=== PATIENT | female | born 1930 | race Caucasian/White ===

== ENCOUNTER 2017-01-05 03:24 | Inpatient (IN) | payer MEDICARE, BC ==
[2017-01-05 04:11] LABS: Add Diff/Slide Review? Slide Review Added; Comments Flag Yes; Hematocrit 34 % (35-47); Mean Corpuscular HGB Conc 32 g/dl (31-36); Mean Corpuscular Hemoglobin 32 pg (27-31); Mean Corpuscular Volume 98 fL (80-97); Mean Platelet Volume 8 um3 (7.4-10.4); Red Blood Count 3.49 10^6/ul (4.0-5.4); Red Cell Distribution Width 18 % (10.5-15); White Blood Count 19.9 10^3/ul (3.5-10.8)
[2017-01-05 04:23] LABS: Calcium 9.5 mg/dL (8.6-10.3); EGFR African American 9.2 (>60); EGFR Non-African American 7.1 (>60); Globulin 2.3 g/dL (2-4); Total Bilirubin 0.5 mg/dL (0.2-1.0); Total Protein 6.3 g/dL (6.4-8.9)
[2017-01-05 04:27] LABS: Troponin I 3.31 ng/mL (<0.04)
[2017-01-05 04:29] LABS: Potassium 6.1 mmol/L (3.5-5.0)
[2017-01-05] MEDS ORDERED: Dextrose 50% VIAL 50 ml IV ONE (05:02)
[2017-01-05] MEDS ORDERED: Insulin REGULAR(*) 1 UNITS UNIT IV PUSH ONE (05:03)
[2017-01-05] MEDS ORDERED: Dextrose 50% Syringe 50 ML* 25 GM/50 ML SYRINGE ONE (05:11)
[2017-01-05] MEDS ORDERED: Aspirin TAB* 325 MG PO ONE (05:11)
[2017-01-05] MEDS ORDERED: Dextrose 50% Syringe 50 ML* 25 GM/50 ML SYRINGE IV PUSH ONE (05:15)
[2017-01-05] MEDS ORDERED: Sodium Polystyrene ORAL.SOL* 15 GM/60 ML BTL PO ONE (05:22)
[2017-01-05 05:44] LABS: HDL Cholesterol 51.1 mg/dL
[2017-01-05] MEDS ORDERED: Calcium Carbonate CHEW TAB* 500 MG (TUMS) PO PRN (05:53)
[2017-01-05] MEDS: Heparin VIAL(*) 5000 UNITS/ML VIAL (FIVE THOUSAND) IV SCH (05:55)
[2017-01-05] MEDS: Heparin DRIP 25,000 UNITS(*) 25,000 UNITS/500 ML BAG IVPB SCH ×2 (05:56→14:57)
[2017-01-05] MEDS: Acetaminophen TAB* 325 MG PO PRN (06:25)
[2017-01-05] MEDS ORDERED: Clopidogrel TAB* 300 MG PO ONE (06:45)
[2017-01-05] MEDS ORDERED: nitroGLYCERIN DRIP* 250 ML ONE ×2 (06:56→15:16)
[2017-01-05] MEDS: nitroGLYCERIN DRIP* 25,000 MCG in PREMIX* 0 ML IV SCH ×2 (07:15→15:25)
[2017-01-05] MEDS ORDERED: Morphine INJ* 2 MG/ML 1 ML SYRINGE (TWO MG - NEW SYRINGE VERSION) ONE (08:31)
[2017-01-05] MEDS: Morphine INJ* 2 MG/ML 1 ML SYRINGE (TWO MG - NEW SYRINGE VERSION) IV PRN ×6 (08:32→22:12)
[2017-01-05] MEDS ORDERED: hydrALAZINE TAB* 100 MG ** ONE HUNDRED PO SCH (09:00)
[2017-01-05] MEDS ORDERED: amLODIPine TAB* 5 MG PO SCH (09:00)
--- NOTE | 2017-01-05 09:16 | HP ---
CC: Dr. Christa Roberts * HISTORY AND PHYSICAL: DATE OF ADMISSION: 01/05/17 PRIMARY CARE PROVIDER: Dr. Christa Roberts. CHIEF COMPLAINT: Nausea, vomiting, chest pain, disorientation. HISTORY OF PRESENT ILLNESS: Ms. Matias is an 86-year-old female with history of end-stage renal disease (who is on dialysis Sunday, , Sunday), hypertension, hypothyroidism, coronary artery disease, and GERD who presents to the emergency room at [facility] with complaints of weakness, disorientation, nausea and vomiting. The patient ultimately was found to have an elevated troponin and probable CHF, and was sent to [facility] for further management and evaluation. The patient to me states that on the evening of 01/03/17 the patient had one episode of vomiting. The following day, she had four more episodes of vomiting. She denies any recent sick contacts stating that she only goes to dialysis and to yarsanism on Sundays. The patient's vomiting has now stopped, but she does have continued episodes of burping. The patient also complains of being constipated recently. She does state, however, that her bowels will fluctuate between diarrhea and constipation. The patient admits to progressive shortness of breath over the last couple of weeks. She has not had any significant cough or sputum production. She has been having intermittent chest pain over the last 24 hours, rating it a 4- 5/10. She states that it comes and goes. She is unable to describe what the pain feels like. She does state that a couple of weeks ago, she had a severe episode of chest pain that awakened her from sleep, though she did not seek attention at that time. The patient states her biggest complaint at this point is that she feels "weak as a kitten." She did miss her dialysis on 01/04/17 due to being ill. PAST MEDICAL HISTORY: 1. End-stage renal disease, on dialysis. 2. Hypertension. 3. Hyperlipidemia. 4. Coronary artery disease. 5. Hypothyroidism. 6. GERD. 7. Macular degeneration. 8. Celiac disease. PAST SURGICAL HISTORY: 1. Appendectomy. 2. Cholecystectomy. 3. Hysterectomy. 4. Right carotid endarterectomy. 5. Left hip replacement. 6. Ganglion cyst removal from wrist. 7. She is status post cardiac stent, though the patient is unable to give me any details on this. MEDICATIONS: (This list is likely inaccurate as the patient is unaware of her home medications.) This is a list obtained from and [facility] records. 1. Hyoscyamine 0.125 mg sublingual daily. 2. Amlodipine ER 10 mg p.o. daily. 3. Requip 0.25 mg p.o. q.h.s. 4. Hydralazine 100 mg p.o. t.i.d. 5. Lexapro 10 mg p.o. daily. 6. Vitamin D 1000 units p.o. daily. 7. Sodium bicarbonate 650 mg p.o. b.i.d. 8. Multivitamin one tab p.o. daily. 9. Folic acid 1 mg p.o. daily. 10. Metoprolol XL 100 mg p.o. daily. 11. Levothyroxine 88 micrograms p.o. daily. 12. Clonidine 0.3 mg p.o. b.i.d. ALLERGIES: LIPITOR, IODINE, PSYLLIUM, and TRAZODONE. FAMILY HISTORY: Mom at age 90 of a CVA. Dad at age 45 of a CVA. SOCIAL HISTORY: The patient is a former smoker; she quit 10 to 15 years ago. She does not drink alcohol. She is a retired nurse. She is . She has 4 children. She lives with one of her 4 sons. His name is Darrius, and he is her healthcare proxy. REVIEW OF SYSTEMS: The patient states that she feels feverish currently, but otherwise denies any fevers or chills. Her appetite has been very poor, but this has been an ongoing issue. She admits to the intermittent chest pain as above. She noted lower extremity edema, which is a new problem for her. No cough. She does admit to shortness of breath. She admits to nausea, vomiting as above. Diarrhea and constipation as above. No abdominal pain. No hematochezia. She does state that she urinates approximately twice per day. She denies any dysuria or hematuria. No focal weakness or sensory loss. No sudden changes in vision. No dysphagia. She does state that her left leg feels weaker than the right related to her hip replacement on that side. Additionally, she states that the left leg has been painful. She does have a very large bruise to the left anterior lower legs that she states she is unaware of how she got this bruise. She did not fall or hit it on anything. She denies any rashes. She denies any anxiety or depression. PHYSICAL EXAMINATION GENERAL: The patient is a well-developed, elderly female, lying in bed in no acute distress, that she is mildly tachypneic. VITAL SIGNS: Blood pressure 154/66, pulse 85, respirations 22, temp 99.4, O2 sat 95% on 3 L. HEENT: Pupils are equal; has evidence of prior cataract extraction. Extraocular muscles are intact. Oropharynx is clear. Oral mucosa is dry. There is no submandibular, cervical or supraclavicular adenopathy. There is a scar related to right carotid endarterectomy. PULMONARY: Again, the patient appears tachypneic at rest. Her breath sounds reveal crackles about two-thirds of the way up bilaterally. Breath sounds are diminished at the bases. CARDIAC: Normal S1, S2. Regular rate and rhythm. There is a 3/6 systolic murmur heard best at the right upper sternal border. She has trace ankle edema bilaterally. ABDOMEN: Bowel sounds are present. Abdomen is soft, nontender, nondistended. MUSCULOSKELETAL: There is no cyanosis or clubbing of the digits. There is full active range of motion of all 4 extremities. SKIN: Warm and dry. There are no rashes. The patient does have scattered bruising noted to all of the limbs; most notably, there is a large purple bruise to the left lower anterior leg and foot. NEUROLOGIC: Cranial nerves II through XII are grossly intact. Sensation is intact to light touch throughout. Strength is 5/5 and symmetric bilaterally. PSYCH: The patient is alert. She is oriented x3 though is forgetful about certain topics. She is not completely clear on her medications, stating that her son does her medication for her given her history of macular degeneration. LABORATORY DATA: WBC 19.9, hemoglobin 11.0, hematocrit 34, platelets 222, neutrophils 91.9%. Sodium 136, potassium 6.1, chloride 99, CO2 21, BUN 79, creatinine 5.63, glucose 189, lactic acid 1.4, calcium 9.5, bilirubin 0.5, AST 36, ALT 27, alk phos 104, CPK 129, CK-MB 20.6. Troponin was 1.329 at [facility], now up to 3.31. BNP 4520, amylase 181, and INR 1.02. Albumin 4.0, triglyceride 86, cholesterol 139, LDL 71, HDL 51. PTT pending. EKG reveals normal sinus rhythm with ST elevation in the anterior leads, specifically V1 through V4. Portable chest x-ray from [facility] - cardiomegaly, pulmonary vascular congestion, and possible pericardial effusion. CT abdomen and pelvis reveals large bilateral effusions, cardiomegaly, bibasilar opacities representing either atelectases or pneumonia, severe atherosclerosis, atrophic kidneys, severe distal constipation. Troponin was 1.329 at [facility], now up to 3.31. BNP 4520, amylase 181, and INR 1.02. ASSESSMENT AND PLAN: Ms. Matias is an 86-year-old female who has a history of end-stage renal disease, hypertension, coronary artery disease, hyperlipidemia, and hypothyroidism who presented initially to [facility] with complaints of disorientation and weakness as well as nausea and vomiting, and was found to have hyperkalemia, elevated troponin, and ST elevations on her EKG and sent to [facility] for further evaluation and management. 1. Possible anterior ST elevation KY. The patient has been complaining of intermittent chest pain over the last 24 hours. She had a severe episode approximately two weeks ago as well. The patient's EKG is concerning for STEMI. She has an IODINE allergy and, given her comorbidities, at this point the plan is not to take the patient to cardiac catheterization. Dr. Dinh of the emergency room spoke with Dr. Lucas, who agreed the ST elevations were present on the EKG. However, did not want to pursue emergent cardiac catheterization at this time. The patient will be admitted to the intensive care unit and started on a heparin drip. She received 324 mg aspirin at [facility]. She will continue on aspirin 81 mg p.o. daily starting tomorrow. Lipid profile has been obtained and is favorable. She has a LIPITOR allergy. Therefore, we will not start a different statin medication at this point. A transthoracic echocardiogram will be obtained. 2. Probable acute systolic CHF. I suspect the patient's tachypnea and crackles on exam are related to acute systolic CHF. I do not have an echocardiogram within our system. This will be ordered for this morning. She does, again, appear to be tachypneic and in mild respiratory distress. However , given her renal failure, I will not dose Lasix at this point. I will contact Dr. Johnson for consultation and the need for dialysis today. The patient is already on metoprolol XL. I do not see any Ajit inhibitor or ARB on her medication list. However, the list is likely inaccurate as the patient is not completely clear of her medications, and likely she is not on either one of these medications due to her renal failure. 3. Nausea and vomiting. The etiology of this is not clear. She does have what 's described to be severe distal constipation on her CT abdomen and pelvis. However, I do not believe that that likely is a cause of her nausea and vomiting. I am more concerned that the nausea and vomiting may actually be related to acute KY. The patient at this point is no longer nauseous or vomiting. She does, however, have some indigestion. I will order Tums to have available for indigestion. 4. Leukocytosis. At this point, I do not see any clear signs of infection, while she does have potential infiltrates on chest x-ray, I'm more suspicious that this represents atelectasis and not pneumonia. Again, the patient has not been coughing and not been bringing up any sputum. I will not continue any antibiotic therapy. She did receive a dose of Cipro at [facility]. Again, I believe that the leukocytosis is likely secondary to her acute KY and is elevated due to a stress reaction. 5. Hyperkalemia. The patient missed her dialysis yesterday. Again, I will be contacting Dr. Johnson to have dialysis performed this morning. She will receive Kayexalate 30 g p.o. x1 as well as insulin, Dextrose, and calcium gluconate. Follow up BNP will be obtained early this afternoon. 6. End-stage renal disease. As above, we will contact Dr. Johnson. 7. Hypertension. The patient's blood pressure is moderately elevated at this time. She is on a very aggressive antihypertensive regimen of felodipine, high - dose hydralazine, high-dose clonidine, and metoprolol XL. We will monitor her blood pressure on her usual home medication regimen. 8. Hypothyroidism. The patient will be maintained on her usual dose of Synthroid. 9. DVT prophylaxis. According to the adult Thrombosis Prophylaxis Risk Factor Assessment Guide, the patient has a total risk factor score of 4, making her high risk. She is going to be on heparin drip for the possible ST elevation KY , and this will act as her DVT prophylaxis. 10. Code status at this point is full. Again, the patient indicates that her son, Darrius, is her healthcare proxy. [id number]/[facility] #: [id number] ALEJANDRO
[2017-01-05] MEDS: Ondansetron INJ* 2 MG/ML VIAL IV PRN ×4 (09:25→21:38)
--- NOTE | 2017-01-05 09:29 | ECHO ---
Patient: LUIS JAVED [facility] Rec#: [id number] : 1930 Date: 01/05/2017 Age: 86y Height: 160.02 cm / 63.0 in Weight: 52.62 kg / 116.0 lbs Sex: F BSA: 1.53 Room#: [facility]9 Admit Date#: 01/05/2017 Type: Inpatient Referring: Sadia Doty DO Reading: Lulu Delarosa MD Pile Driver: Sylvie Tyson RDCS Transthoracic Echocardiogram Indication: STEMI BP: 152/62 HR: 92 Rhythm: NSR Findings History: CAD with stent 10 years ago, HTN. Technical Comments: The study quality is fair. The study is technically limited due to poor parasternal windows. Completed at 0845. Left Ventricle: The left ventricular chamber size is normal. Mild concentric left ventricular hypertrophy is observed. There is a focal wall motion abnormality present. There is mild to moderately decreased left ventricular systolic function. The estimated ejection fraction is 35-40%. with anterior/septal apical wall hypokinesis. There is no consistent Doppler evidence of clinically significant diastolic dysfunction. Left Atrium: The left atrium is severely dilated. Right Ventricle: The right ventricular cavity size is normal. The right ventricular global systolic function is hyperdynamic. Right Atrium: The right atrium is moderately dilated. Aortic Valve: The aortic valve structure is not well visualized. Moderate aortic leaflet calcification is visualized. There is a trace of aortic regurgitation. There is moderate aortic stenosis. Mitral Valve: There is mitral annular calcification. The mitral valve leaflets are moderately thickened. There is mild mitral regurgitation. There is mild mitral stenosis. Tricuspid Valve: The tricuspid valve leaflets are mildly thickened. There is mild tricuspid regurgitation. The right ventricular systolic pressure is estimated at 53 mmHg. There is evidence of moderate pulmonary hypertension. There is no tricuspid stenosis. Pulmonic Valve: The pulmonic valve appears normal. There is a trace pulmonic regurgitation. There is no pulmonic stenosis. Pericardium: There is no significant pericardial effusion. Aorta: There is no dilatation of the ascending aorta. The aortic arch is not well visualized. The aortic root is normal in size. Pulmonary Artery: The main pulmonary artery appears normal. Venous: The inferior vena cava is dilated. There is a greater than 50% respiratory change in the inferior vena cava dimension. Summary: There was not any prior study for comparison. Conclusions The left ventricular chamber size is normal. Mild concentric left ventricular hypertrophy is observed. There is a focal wall motion abnormality present. There is mild to moderately decreased left ventricular systolic function. The estimated ejection fraction is 35-40%. with anterior/septal apical wall hypokinesis. The left atrium is severely dilated. The right atrium is moderately dilated. There is a trace of aortic regurgitation. There is moderate aortic stenosis. There is a trace of aortic regurgitation. There is mild mitral regurgitation. There is mild mitral stenosis. There is mild tricuspid regurgitation. There is evidence of moderate pulmonary hypertension. There is a trace pulmonic regurgitation. Measurements Name Value Normal Range RVIDd (AP) 2D 3.2 cm (0.9 - 2.6) RVDdMajor (2D) 4.3 cm (2.2 - 4.4) RAd ISD 4CH 5.4 cm (3.4 - 4.9) RA (A4C)W 4.3 cm (2.9 - 4.6) IVSd (2D) 1.1 cm (0.6 - 1) LVPWd (2D) 1.2 cm (0.6 - 1) LVIDd (2D) 4.8 cm (3.6 - 5.4) LVIDs (2D) 3.7 cm - LV FS (2D) 24 % (25 - 45) Aortic Annulus 2 cm (1.4 - 2.6) Ao root diameter (2D) 2.9 cm (2.1 - 3.5) Ascending Ao 3 cm (2.1 - 3.4) LA dimension (AP) 2D 4.2 cm (2.3 - 3.8) LAd ISD 4CH 6.9 cm (2.9 - 5.3) LA ISD 4CH W 5.2 cm (2.5 - 4.5) Name Value Normal Range LA ESV SP 4CH (A/L) 122 ml - LA ESV SP 2CH (A/L) 64 ml - LA ESV BP (A/L) 95 ml - LA ESV BP (A/L) index 61.4 ml/m2 - LA ESV SP 4CH (MOD) 112 ml - LA ESV SP 2CH (MOD) 62 ml - Name Value Normal Range MV E-wave Vmax 1.38 m/sec - MV deceleration time 153.8 msec - MV A-wave Vmax 1.03 m/sec - MV E:A ratio 1.34 ratio - LV septal e' Vmax 0.03 m/sec - LV lateral e' Vmax 0.05 m/sec - LV E:e' septal ratio 46 ratio - LV E:e' lateral ratio 27.6 ratio - Name Value Normal Range AV Vmax 2.37 m/sec - AV VTI 46.6 cm - AV peak gradient 22.5 mmHg - AV mean gradient 14.14 mmHg - LVOT diameter 2 cm - LVOT Vmax 0.72 m/sec - LVOT VTI 13.61 cm - LVOT peak gradient 2.07 mmHg - LVOT mean gradient 1.25 mmHg - SV LVOT 42.42 ml - HARIKA (continuity Vmax) 0.92 cm2 - HARIKA (continuity VTI) 0.92 cm2 - AR PHT 440.9 msec - Name Value Normal Range MV Vmax 1.7 m/sec - MV VTI 26.8 cm - MV peak gradient 11.62 mmHg - MV mean gradient 4.94 mmHg - MV PHT 39 msec - Name Value Normal Range TR Vmax 3.1 m/sec - TR peak gradient 38 mmHg - RAP 15 mmHg - RVSP 53 mmHg - IVC diameter 2.4 cm - Name Value Normal Range PV Vmax 1.04 m/sec - PV peak gradient 4.3 mmHg -
[2017-01-05] MEDS: Levothyroxine TAB* 88 MCG TAB PO SCH (10:13)
[2017-01-05] MEDS ORDERED: Epoetin Alfa* 4,000 UNITS/ML VIAL IV ONE (11:00)
[2017-01-05] MEDS: Multivitamins/Minerals TAB PO SCH (11:10)
[2017-01-05] MEDS: Folic Acid TAB* 1 MG PO SCH (11:10)
[2017-01-05] MEDS: Sodium Bicarbonate (ANTACID)* 650 MG TAB PO SCH ×2 (11:10→21:29)
[2017-01-05] MEDS: Citalopram TAB* 20 MG PO SCH (11:10)
[2017-01-05] MEDS: CMCS: Rosuvastatin (NF) 5 MG TAB PO SCH (11:10)
[2017-01-05] MEDS: cloNIDine TAB* 0.1 MG PO SCH ×2 (11:10→21:28)
[2017-01-05] MEDS: Metoprolol Succinate XL TAB* 100 MG PO SCH ×2 (11:10→15:53)
[2017-01-05] MEDS ORDERED: Cefepime(*) 1 GM in NS 0.9% 50 ML* 50 ML IVPB ONE (12:08)
--- NOTE | 2017-01-05 12:11 | RAD ---
HISTORY: Respiratory distress COMPARISONS: None VIEWS: 1: frontal portable view of the chest at 11:50 AM FINDINGS: LINES AND TUBES: None. CARDIOMEDIASTINAL SILHOUETTE: The cardiac silhouette is enlarged. The cardiomediastinal silhouette is otherwise normal for portable technique. PLEURA: The costophrenic angles are sharp. No pleural abnormalities are noted. LUNG PARENCHYMA: There is patchy linear opacities of the lung bases bilaterally. This patchy alveolar desiccation of the left upper lung. There is a diffuse reticular pattern with indistinct pulmonary vessels. ABDOMEN: The upper abdomen is clear. There is no subphrenic gas. BONES AND SOFT TISSUES: No bone or soft tissue abnormalities are noted. IMPRESSION: 1. CARDIOMEGALY. 2. PULMONARY INTERSTITIAL EDEMA. 3. PATCHY BIBASILAR ATELECTASIS VERSUS CONSOLIDATION WITH PATCHY AIRSPACE DISEASE OF THE LEFT UPPER LUNG. RECOMMEND FOLLOW-UP UNTIL RESOLUTION TO EXCLUDE UNDERLYING PULMONARY PARENCHYMAL PATHOLOGY.
--- NOTE | 2017-01-05 12:26 | CONSULT ---
Consult Consult: Consultation Note - Critical Care Requesting Physician: Dr Gomez Reason for consult: respiratory distress Limitations in history/physical: none, respiratory distress Date of consult: 01/05/2017 HPI: 86y F pmhx ESRD on HD, CAD, former smoker, CHF, HTN, DM; went to [facility] for Nausea/vom, chest pain, sob. She states she missed HD the day prior to admission to [facility] due to nausea/vom. When transferred over to [facility], her records indicate she had a CT chest with bibasilar consolidation vs congestion. Elevated troponin 1.3, elevated BNP 4500, elevated potassium. Amylase 185. Urinalysis just with LE. She was transferred here to [facility] for possible IL/STEMI. Here interventional cardiology evaluated her and did not deem EKG to be true STEMI. EKG at [facility] with NSR, Anterior Waves with 1mm ST V1-V4, left axis deviation. Repeat EKG here NSR Ant Qwaves, similar ST elevation anterior. Trop increased and peaked to 3.22. CK 22. WBC 16-19. Afebrile. Currently on 10L NC, tachypneic, gives history but tired. Seems confused? CXR now with RLL infiltrate/consolidation evident. ?JAYME. congestion bilateral+ Records from [facility] reviewed - old ekg 2013 with Qwaves V1-V2, no sig ST elevation noted; old ECHO with mild lv systolic dysfunction, noted PCi to LAD documented but known when. ROS: limited due to distress and mental status. PMHx: ESRD on HD, CAD, Celiac Disease, former smoker, CAD, GERD, Gout, CHF, HTN , DM; history of pancreatitis/cholecystitis 2013 PSHx: hysterectomy with unilateral salpingooophorectomy, CEA on right, hip arthroplasty on left, PCI of LAD, appendectomy, bilateral cataract surgery. Family History: unobtainable Social History: smoked 1 ppd x40yr, quit 17yrs back, former alcohol use. Allergies: Allergies Allergy/AdvReac Type Severity Reaction Status Date / Time Atorvastatin [From Lipitor] Allergy Unknown Verified 01/05/17 03:38 Reaction Details Iodine Allergy Unknown Verified 01/05/17 03:38 Reaction Details Psyllium Allergy GI Upset Verified 01/05/17 03:38 Trazodone Allergy Unknown Verified 01/05/17 03:38 Reaction Details Home Medications: Folic Acid TAB* [Folvite TAB*] 1 mg PO DAILY 12/27/11 [History Confirmed ] Levothyroxine TAB* [Synthroid 88 MCG TAB*] 88 mcg PO DAILY 12/27/11 [History Confirmed 01/05/17] Metoprolol Succinate [Toprol Xl] 100 mg PO DAILY 12/27/11 [History Confirmed ] Cholecalciferol [Vitamin D] 1,000 unit PO DAILY 02/22/12 [History Confirmed ] Felodipine [Felodipine ER] 10 mg PO DAILY 02/22/12 [History Confirmed 01/05/17] Multiple Vitamins W/ Minerals [Ocuvite Preservision] 1 tab PO DAILY 06/27/12 [ History Confirmed 01/05/17] Clonidine HCl [Clonidine HCl 0.3 MG] 0.3 mg PO BID 01/05/17 [History Confirmed 01/05/17] Escitalopram (NF) [Lexapro 10 mg (NF)] 10 mg PO DAILY 01/05/17 [History Confirmed 01/05/17] Hyoscyamine Sulfate [Hyoscyamine Sulfate Odt] 0.125 mg SL DAILY 01/05/17 [ History Confirmed 01/05/17] Ropinirole Hydrochloride [Ropinirole HCl] 0.25 mg PO BEDTIME 01/05/17 [History Confirmed 01/05/17] Sodium Bicarbonate (ANTACID)* 650 mg PO BID 01/05/17 [History Confirmed 01/05/17 ] hydrALAZINE TAB* [Apresoline TAB*] 100 mg PO TID 01/05/17 [History Confirmed ] Tele: NSR Vitals: Vital Signs Temp 97.2 F 01/05/17 11:19 Pulse 75 01/05/17 12:00 Resp 26 01/05/17 12:00 BP 113/53 01/05/17 12:00 Pulse Ox 94 01/05/17 12:00 Intake & Output 01/04/17 01/05/17 01/05/17 18:59 06:59 18:59 Intake Total 110 23 Balance 110 23 Weight 116 lb 6.465 oz Intake: IV Fluids 110 Heparin 23 O2/Vent: NC 10LPM, sat 97% Infusions: NTG, Heparin IV Current Medications: Acetaminophen (Tylenol Tab*) 650 mg PO Q4H PRN PRN Reason: PAIN Last Admin: 01/05/17 06:25 Dose: 650 mg Aspirin (Aspirin Ec Low Dose*) 81 mg PO DAILY [facility] Calcium Carbonate (Tums*) 500 mg PO Q4H PRN PRN Reason: INDIGESTION Citalopram Hydrobromide (Celexa Tab*) 20 mg PO DAILY [facility] Last Admin: 01/05/17 11:10 Dose: Not Given Clonidine HCl (Catapres Tab*) 0.3 mg PO BID [facility] Last Admin: 01/05/17 11:10 Dose: Not Given Clopidogrel Bisulfate (Plavix Tab*) 75 mg PO DAILY [facility] Folic Acid (Folvite Tab*) 1 mg PO DAILY [facility] Last Admin: 01/05/17 11:10 Dose: Not Given Heparin Sodium (Porcine) (Heparin Vial(*)) 0 units IV .PER PROTOCOL [facility]EF[facility] PRN Reason: Protocol Last Admin: 01/05/17 05:55 Dose: 3,900 units Heparin Sodium/Dextrose (Heparin Drip 25,000 Units(*)) 25,000 units in 500 mls @ 0 mls/hr IVPB .PER RATE ESTEFANI; Per Protocol PRN Reason: Protocol Last Admin: 01/05/17 05:56 Dose: 17 mls/hr Nitroglycerin/Dextrose 25,000 (mcg/ IV Solution) 250 mls @ 6 mls/hr IV .PER PARAMETERS ESTEFANI; 10 MCG/MIN PRN Reason: Protocol Last Admin: 01/05/17 07:15 Dose: 6 mls/hr Cefepime HCl 1 gm/ Sodium (Chloride) 50 mls @ 100 mls/hr IVPB ONCE ONE Stop: 01/05/17 12:37 Cefepime HCl 500 gm/ Sodium (Chloride) 50 mls @ 100 mls/hr IVPB DAILY [facility] Vancomycin HCl 1,000 mg/ (Sodium Chloride) 250 mls @ 166.667 mls/hr IVPB Q12H [facility] Levothyroxine Sodium (Synthroid Tab*) 88 mcg PO DAILY@0600 [facility] Last Admin: 01/05/17 10:13 Dose: Not Given Metoprolol Succinate (Toprol Xl Tab*) 100 mg PO DAILY [facility] Last Admin: 01/05/17 11:10 Dose: Not Given Morphine Sulfate (Morphine Inj (Syringe)*) 2 mg IV Q2H PRN PRN Reason: PAIN Last Admin: 01/05/17 11:54 Dose: 2 mg Multivitamins/Minerals (Theragran/Minerals Tab*) 1 tab PO DAILY [facility] Last Admin: 01/05/17 11:10 Dose: Not Given Ondansetron HCl (Zofran Inj*) 4 mg IV Q4H PRN PRN Reason: NAUSEA/VOMITING Last Admin: 01/05/17 09:25 Dose: 4 mg Ropinirole HCl (Requip Tab*) 0.25 mg PO BEDTIME [facility] Rosuvastatin Calcium (Crestor (Nf)) 5 mg PO DAILY [facility] PRN Reason: Protocol Last Admin: 01/05/17 11:10 Dose: Not Given Sodium Bicarbonate (Sodium Bicarbonate (Antacid)*) 650 mg PO BID [facility] Last Admin: 01/05/17 11:10 Dose: Not Given Physical Exam: General: awake, alert, tired at times, mild distress, no diaphoresis Head: normocephalic, atraumatic HEENT: no pallor, no icterus, moist mucous membranes Neck: soft, supple, no jvd, no stridor CVS: normal rate, normal rhythm, no murmur Resp: bilateral air entry, RLL rhales, no wheeze, no rhonchi, no acc muscle use Abdomen: soft, nontender, nondistended, bowel sounds present Ext: pulses+, warm, no edema Skin: intact, no breakdown, no dryness Neuro: awake, alert, orientedx2, moving all extremities, no gross focal deficit Labs: Laboratory Results - last 24 hr 01/05/17 01/05/17 01/05/17 03:53 03:53 03:53 WBC 19.9 H RBC 3.49 L Hgb 11.0 L Hct 34 L MCV 98 H MCH 32 H MCHC 32 RDW 18 H Plt Count 222 MPV 8 Neut % (Auto) 91.9 H Lymph % (Auto) 1.9 L [place] % (Auto) 5.8 Eos % (Auto) 0 Baso % (Auto) 0.4 Absolute Neuts (auto) 18.3 H Absolute Lymphs (auto) 0.4 L Absolute Monos (auto) 1.1 H Absolute Eos (auto) 0 Absolute Basos (auto) 0.1 Absolute Nucleated RBC 0.01 Nucleated RBC % 0.1 Sodium 136 Potassium 6.1 H* Chloride 99 L Carbon Dioxide 21 L Anion Gap 16 H BUN 79 H Creatinine 5.63 H Est GFR ( Amer) 9.2 Est GFR (Non-Af Amer) 7.1 BUN/Creatinine Ratio 14.0 Glucose 189 H Lactic Acid 1.4 Calcium 9.5 Total Bilirubin 0.50 AST 36 ALT 27 Alkaline Phosphatase 104 Total Creatine Kinase 129 CK-MB (CK-2) 20.6 H Troponin I 3.31 H* B-Natriuretic Peptide Total Protein 6.3 L Albumin 4.0 Globulin 2.3 Albumin/Globulin Ratio 1.7 Triglycerides 86 Cholesterol 139 LDL Cholesterol 71 HDL Cholesterol 51.1 01/05/17 01/05/17 03:53 08:41 WBC RBC Hgb Hct MCV MCH MCHC RDW Plt Count MPV Neut % (Auto) Lymph % (Auto) [place] % (Auto) Eos % (Auto) Baso % (Auto) Absolute Neuts (auto) Absolute Lymphs (auto) Absolute Monos (auto) Absolute Eos (auto) Absolute Basos (auto) Absolute Nucleated RBC Nucleated RBC % Sodium Potassium Chloride Carbon Dioxide Anion Gap BUN Creatinine Est GFR ( Amer) Est GFR (Non-Af Amer) BUN/Creatinine Ratio Glucose Lactic Acid Calcium Total Bilirubin AST ALT Alkaline Phosphatase Total Creatine Kinase CK-MB (CK-2) Troponin I 3.22 H* B-Natriuretic Peptide 4904 H Total Protein Albumin Globulin Albumin/Globulin Ratio Triglycerides Cholesterol LDL Cholesterol HDL Cholesterol Imaging: ECHO 01/05 mod LV systolic dysfunction, anterior/anteroseptal hypo with ef 350- 40%, Assessment: 86y F pmhx ESRD on HD, CAD, former smoker, CHF, HTN, DM, CAD; went to [facility] for Nausea/vom, chest pain, sob. She states she missed HD the day prior to admission to [facility] due to nausea/vom. When transferred over to [facility], her records indicate she had a CT chest with bibasilar consolidation vs congestion. Elevated troponin 1.3, elevated BNP 4500, elevated potassium. Urinalysis just with LE. She was transferred here to [facility] for possible IL/STEMI. Here interventional cardiology evaluated her and did not deem EKG to be true STEMI. -Pneumonia, RLL/JAYME; HCAP -Acute Hypoxic Respiratory Failure -Severe Sepsis 2/2 to pneumonia, unspec organism -acute on chronic decompensated LV systolic dysfunction -Pulmonary Congestion/fluid overload -Myocardial Infarction, suspect NSTEMI at this point -elevated amylase, r/o pancreatitis -hyperkalemia ESRD on HD Chronic LV systolic dysfunction Plan: Neuro- mild confusion noted. delirium prec. baseline versus metabolic encephelopathy. CVS- hypertensive. cont po meds. cont metoprolol. asa/plavix. IV heparin for NSTEMI. peak trop 3. mod on echo. could be demand ischemia/NSTEMI from pneumonia vs underlying true NSTEMI. EKG with Qwaves so infarct already has set in. ECHO with anterior hypokinesis focallly. for now medical management as per cardiology. NTG as tolerated. IV heparin. watch for bleeding. Resp- on 10L, hypoxic. CXR now with RLL and ?JAYME infiltrate? will start HCAP coverage given HD patient who lives in facility, cefepime and vanco IV with HD. sputum cx. blood cx. need to clarify code status. NIV if needed. HD for volume removal for pulm congestion. ID- leukocytosis, afebrile. RLL and JAYME infiltrate on CXR. cover for HCAP. sputum and blood cx. Cefepime load and then 500mg iv daily (day#1), vanco 1gm with HD (day#1). GI- renal diet. repeat amylase/lipase for r/o of pancreatitis. antiemetics prn for nausea/vom. watch for coffee ground emesis. Renal-HD ongoing. Pulm congestion+. noted hyperkalemia 6.1 from AM. Heme- hg stable. plt stable. on DAPT now and IV heparin for NSTEMI. Endo- insulin coverage. Musculsk- pressure ulcer prophylaxis Wounds- none DVT prophylaxis: IV heparin GI prophylaxis: pepcid Central Line: no Arterial Line: no Parkinson Cathetor: no Disposition: ICU for respiratory failure, pneumonia, nstemi Code Status: full code, need to clarify with family Total Critical Care time is 50 minutes, excluding procedures/teaching Trent Alvarez MD Learning Technologist (Electronically Signed)
[2017-01-05] MEDS ORDERED: Vancomycin(*) 1,000 MG in NS 0.9% 250 ML* 250 ML IVPB SCH (13:00)
[2017-01-05 13:10] LABS: Amylase 154 U/L (29-103); Lipase 34 U/L (11.0-82.0)
--- NOTE | 2017-01-05 13:51 | CONS ---
CC: Dr. Delarosa; Hospitalist Service, Dr. Eid CARDIOLOGY CONSULT: DATE OF CONSULT: 01/05/17 HISTORY OF PRESENT ILLNESS: I was asked by Dr. Eid from the hospitalist service to see this 86-year-old female patient, who presented originally to [facility] with multiple recurrent symptoms, who presented with multiple episodes of nausea and also vomiting that has been going on for a few weeks. The patient does have significant comorbidities and mortalities including end- stage renal disease. She is on dialysis; systemic arterial hypertension; hyperlipidemia; history of coronary artery disease; history of myocardial infarction, stenting 10 years ago in [employer], full detailed information not available; history of hypothyroidism. There were some concerns of anterior wall ST elevation and Q waves in V1, V2, and V3, and a repeat EKG as well documented that. I understand that Dr. Lucas from Interventional Cardiology was contacted by ER physician and a decision was made not to take this patient to the cardiac cardiac cath lab radiology technologist given her high risk comorbidities. The patient eventually was admitted to the intensive care unit for further management. There is some mention of a DNR status on old records. We are waiting for the son, he would be arriving shortly to discuss this patient further, as the patient currently has some confusion status. There are some episodes of chest pain. No orthopnea, no PND, no dizziness, no syncope is appreciated. Followup of the troponin originally was 3.31 at about 4 o'clock this morning and then did go down to 3.22. Her BNP was significantly elevated at almost 5000. She also was found to have white blood cell of 20,000 with hemoglobin of 11 and neutrophil of 18.3, possible sepsis cannot be excluded. The patient was started on antibiotic treatment. She does have significant history as outlined above. Currently, she is in the intensive care unit. She is receiving dialysis. She has been receiving dialysis at the [facility] 3 times per week, hemodialysis as well. There is no history of fever, chills, or swelling in the lower extremities. There were some concerns of fatigability and lack of energy. PAST MEDICAL HISTORY: Extensive includes celiac disease; macular degeneration; hypothyroidism; coronary artery disease; hyperlipidemia; hypertension; end- stage renal disease, on dialysis. PAST SURGICAL HISTORY: Includes left hip replacement, right carotid endarterectomy, hysterectomy, cholecystectomy, and appendectomy. She is also status post cardiac stenting, details not immediately available. MEDICATIONS: As an outpatient are not immediately verified: Medications as an inpatient include: 1. Tylenol 650 mg p.o. q.4 hours p.r.n. 2. Aspirin 81 mg daily. 3. She is on cefepime 1 g IV piggyback. 4. She is also on Catapres 0.3 mg p.o. b.i.d. 5. Plavix 75 mg daily. 6. Folic acid 1 mg daily. 7. Heparin adjusted to her PTT. 8. Synthroid 88 mcg daily. 9. Toprol 100 mg daily. 10. Morphine 2 mg IV q.2 hours. 11. Zofran 4 mg IV q.4 hours. 12. Crestor 5 mg daily. 13. Sodium bicarb 650 mg p.o. b.i.d. ALLERGIES: LIPITOR, IODINE, TRAZODONE. FAMILY HISTORY: There is no family history of premature coronary artery disease. SOCIAL HISTORY: She used to smoke; she quit 10 to 15 years ago. No history of alcohol and no history of illicit drug use. She lives with one of her sons, who will be actually arriving sometime for further discussion about this patient. REVIEW OF SYSTEMS: Her review of all other systems essentially is negative. PHYSICAL EXAM: She is frail. She is awake, but she has some confusion status. She had some chest pain of 2/10. Vitals: Blood pressure 110/70; pulse 70, she is sinus rhythm; temperature 97.2. Head and Neck Exam: Normocephalic, atraumatic head. Ears, Nose, and Throat: Essentially benign. Neck: Supple. JVP is not elevated. No carotid bruits. No masses in the neck are appreciated. Chest: Diminished air entry bilaterally with some rhonchi. Heart : Normal S1 and S2. No added sounds, no gallops, no rubs. Abdomen: Benign and soft. Positive bowel sounds. Extremities: No edema, no cyanosis, no clubbing. Skin exam is normal. Psych: Difficult to evaluate because of her confusion. VARIETY PERFORMER: No focal deficits are appreciated. DIAGNOSTIC STUDIES/LAB DATA: White blood cells 19.9, hemoglobin 11, hematocrit 34, platelets 222. Her sodium is 136, potassium 6.1, carbon dioxide 21, BUN 79 , creatinine 5.63. Troponin 3.22. BNP 5000. Her EKG showed sinus rhythm, Q waves V1 to V3, ST elevation V1 to V3, left anterior fascicular block. Her chest x-ray was not reported yet. Her echocardiogram, transthoracic, from today showed EF 35% to 40%. There is apical anterior wall septal hypokinesis appreciated. Left atrium severely dilated, right atrium moderately dilated. Trace aortic insufficiency, moderate aortic stenosis, mild mitral insufficiency, mild mitral stenosis, and mild tricuspid insufficiency, and there is evidence of moderate pulmonary hypertension. IMPRESSION: The patient is an 86-year-old female patient, who has significant comorbidities, high risk, and transferred from [facility] for concerns of anterior wall ST-elevation myocardial infarction. 1. The patient ruled in by positive troponin for myocardial infarction. There are some concerns of ST elevations and Q waves from V1 to V3 by her EKG. 2. Abnormal echo with ejection fraction 35% to 40% with anterior septal apical hypokinesis. 3. Moderate aortic stenosis. 4. Mild mitral insufficiency and aortic insufficiency. 5. End-stage renal disease, on hemodialysis 3 times per week. 6. Hyperlipidemia. 7. Systemic arterial hypertension. 8. Hypothyroidism. 9. There is records of the patient's DNR. 10. The patient currently is confused. 11. Abnormal EKG as described. 12. Elevated BNP probably consistent with her myocardial infarction and congestive heart failure. 13. Significant abnormal potassium, BUN, and creatinine related to her end- stage renal disease. 14. The patient is critical. PLAN: This is a critically ill patient. She appears to have some confusion. I discussed her with the hospitalist service, Dr. Eid. I will be discussing her with her son, Darrius, who will be coming at sometime today as well. I discussed her with Dr. Lucas regarding her clinical presentation yesterday and the EKGs from yesterday or early this morning. At the present time, I agree with continuing aggressive medical management with aspirin, beta-deonna treatment, statin, heparin, Plavix, and initiating of SHANTI inhibitors or ARBs. Her prognosis is guarded at best at the present time. I agree with following up serial troponins and follow up EKG as well. Her comorbidities are very significant including her advanced age, [id number] reduced left ventricular systolic function, mixed valvular disease with moderate aortic stenosis, hypertension, hyperlipidemia, as well end-stage renal disease, on dialysis. What makes her presentation also complex is there is significant leukocytosis with left shift and probably bacteremia or sepsis could be in the picture as well here that make it more actually increasing her risk of comorbidities at the present time. I agree with antibiotic treatment continuation. We will follow her very closely with you and make further recommendations as her clinical situation progress in the intensive care unit. She remains critical at the present time. Thank you very much for asking us to participate in the care of this patient. TIME SPENT: More than half of at least 70 plus minutes was in the critical care of the patient, discussing care further and making further recommendations and decision making [id number] without evaluating the time of the transthoracic echocardiogram. [id number]/CPS #: [id number] MTDD
[2017-01-05] MEDS ORDERED: Vancomycin - DIALYSIS DOSING* NOTE FOLLOW UP SCH (16:00)
--- NOTE | 2017-01-05 16:33 | PN ---
Progress Note - Progress Note Date of Service: 01/05/17 Note: noted troponin 2.8, coming down. amylase 150s, down from 180s patient still with chest pain but improving, now 5/10 s/p HD and resp distress has improved, resting and appears more comfortable can wean down oxygen further. noted NSVT EKG repeat with similiar findings as before, with ectopy noted now at times repeat CMP/Mg later cont BB/asa/plavix/IV heparin/NTG infusion will need amio if conitinued more ectopy and arrythmias. cardiology notes reviewed, significant comorbidities. reduced lvef with valvular disease, esrd hd, now with some degree of possible aspiration/pneumonia also. Based on ECHO findings, this OH seems to have already set in and findings already with apical hypokinesis. discussed with son about current pneumonia +/- nstemi. he owuld like to continue current care and do what we can for her. full code. Trent Alvarez Fsr
--- NOTE | 2017-01-05 20:58 | PN ---
Hospitalist Progress Note Pt seen and examined. Cardiology consulted again in AM given continued crushing chest pain despite IV morphine and between 40-70 of nitro gtt, BB, heparin gtt. Pt being medically managed for STEMI given comorbidities (Dr. Lucas consulted in ED). EKG with both anterior Qs and ST elevations q2-4, no prior baseline but with reported CAD hx and chest pain episode 2-3 weeks ago. Trop peak 3.31 from 1.33 at [facility]. Amlodipine stopped given relative hypotension with HD and STEMI with reduced EF 35-40%. Hydralazine also stopped. Cardiology has consulted Dr. Alvarez of Critical Care who has assumed care. Appreciate recs. antibiotics were started (vanc, cefepime). Chucky Eid MD
[2017-01-05] MEDS: Ropinirole TAB* 0.5 MG TAB PO SCH (21:29)
[2017-01-05 22:36] LABS: ALT 26 U/L (7-52); Albumin 3.5 g/dL (3.2-5.2); Alkaline Phosphatase 82 U/L (34-104); BUN/Creatinine Ratio 12.8 (8-20); Blood Urea Nitrogen 39 mg/dL (6-24); CO2 Carbon Dioxide 28 mmol/L (22-32); Calcium 8.1 mg/dL (8.6-10.3); Chloride 92 mmol/L (101-111); EGFR African American 18.7 (>60); EGFR Non-African American 14.5 (>60); Globulin 2.2 g/dL (2-4); Glucose 202 mg/dL (70-100); Sodium 131 mmol/L (133-145); Total Protein 5.7 g/dL (6.4-8.9)
[2017-01-05 22:37] LABS: Anion Gap 11 mmol/L (2-11)
[2017-01-05 23:26] LABS: Magnesium 1.9 mg/dL (1.9-2.7)
--- NOTE | 2017-01-06 00:43 | ED ---
Sarthka Santos Angela, scribed for Sarah Dinh MD on 01/05/17 at 0435 . Complex/Multi-Sys Presentation - HPI Summary HPI Summary: This pt is a 86 y/o female transferred from [facility] presenting to [facility] c/o nausea, vomiting, and chills. Pt additionally reports chest pain that began yesterday. She currently feels SOB. Pt also notes back pain, mild headache She states she missed dialysis yesterday due to her symptoms of nausea and vomiting. Pt notes she bruises easily and has some on her arm and legs. She denies recent falls or trauma. She reports little urine output (about twice a day). Pt denies blurry vision, hematuria, dysuria, anxiety or depression. Pt is a former smoker. She reports she had a stent placed approximately 8 years ago in [facility] in [place]. PMHx: CHF, HTN, end stage renal disease, diabetes. - History Of Current Complaint Chief Complaint: EDNauseaVomitDiarrh Hx Obtained From: Patient Onset/Duration: Lasting Days Timing: Days Character: Pressure Associated Signs And Symptoms: Positive: SOB, Chest Pain, Nausea, Vomiting, Back Pain. Negative: Dysuria, Other - blurry vision, hematuria, anxiety or depression - Allergies/Home Medications Allergies/Adverse Reactions: Allergies Allergy/AdvReac Type Severity Reaction Status Date / Time Atorvastatin [From Lipitor] Allergy Unknown Verified 01/05/17 03:38 Reaction Details Iodine Allergy Unknown Verified 01/05/17 03:38 Reaction Details Psyllium Allergy GI Upset Verified 01/05/17 03:38 Trazodone Allergy Unknown Verified 01/05/17 03:38 Reaction Details Home Medications: Home Medications Clonidine HCl [Clonidine HCl 0.3 MG] 0.3 mg PO BID 01/05/17 [History Confirmed 01/05/17] Escitalopram (NF) [Lexapro 10 mg (NF)] 10 mg PO DAILY 01/05/17 [History Confirmed 01/05/17] Hyoscyamine Sulfate [Hyoscyamine Sulfate Odt] 0.125 mg SL DAILY 01/05/17 [ History Confirmed 01/05/17] Ropinirole Hydrochloride [Ropinirole HCl] 0.25 mg PO BEDTIME 01/05/17 [History Confirmed 01/05/17] Sodium Bicarbonate (ANTACID)* 650 mg PO BID 01/05/17 [History Confirmed 01/05/17 ] hydrALAZINE TAB* [Apresoline TAB*] 100 mg PO TID 01/05/17 [History Confirmed ] PMH/Surg Hx/FS Hx/Imm Hx Endocrine/Hematology History: Reports: Hx Diabetes Cardiovascular History: Reports: Hx Congestive Heart Failure, Hx Hypertension History: Reports: Hx Chronic Renal Failure - ESRD Infectious Disease History: No Infectious Disease History: Denies: Traveled Outside the [place] in Last 30 Days - Family History Known Family History: Negative: Respiratory Disease - Social History Alcohol Use: None Substance Use Type: Reports: None Hx Tobacco Use: No Smoking Status (MU): Never Smoked Tobacco Review of Systems Negative: Fever, Chills Negative: Blurred Vision Positive: Chest Pain Positive: Shortness Of Breath Positive: Vomiting, Nausea Positive: other - little urine output. Negative: hematuria Positive: Other - back pain Positive: Bruising - arms and legs (bruises easily) Positive: Headache Negative: Anxious, Depressed All Other Systems Reviewed And Are Negative: Yes Physical Exam Triage Information Reviewed: Yes Vital Signs On Initial Exam: Initial Vitals Temp Pulse Resp BP Pulse Ox 99.4 F 91 18 169/70 93 01/05/17 03:34 01/05/17 03:34 01/05/17 03:34 01/05/17 03:34 01/05/17 03:34 Vital Signs Reviewed: Yes Appearance: Positive: Well-Nourished Skin: Positive: Warm, Skin Color Reflects Adequate Perfusion, Dry, Other - ecchymosis on arms and legs Head/Face: Positive: Normal Head/Face Inspection Eyes: Positive: Normal ENT: Positive: Normal ENT inspection Neck: Positive: Supple, Nontender Respiratory/Lung Sounds: Positive: Breath Sounds Present, Other - Crackles heard on the right and left. Cardiovascular: Positive: Normal, RRR Abdomen Description: Positive: Nontender, Soft Musculoskeletal: Positive: Normal, Other - no LE swelling. Negative: Edema Left , Edema Right Neurological: Positive: Normal, Sensory/Motor Intact, Alert, Oriented to Person Place, Time Psychiatric: Positive: Normal Diagnostics - Vital Signs Vital Signs Temp Pulse Resp BP Pulse Ox 01/05/17 03:34 99.4 F 91 18 169/70 93 - Laboratory Lab Results: Lab Results 01/05/17 01/05/17 01/05/17 Range/Units 03:53 03:53 03:53 WBC 19.9 H (3.5-10.8) 10^3/ul RBC 3.49 L (4.0-5.4) 10^6/ul Hgb 11.0 L (12.0-16.0) g/dl Hct 34 L (35-47) % MCV 98 H (80-97) fL MCH 32 H (27-31) pg MCHC 32 (31-36) g/dl RDW 18 H (10.5-15) % Plt Count 222 (150-450) 10^3/ul MPV 8 (7.4-10.4) um3 Neut % (Auto) 91.9 H (38-83) % Lymph % (Auto) 1.9 L (25-47) % [place] % (Auto) 5.8 (1-9) % Eos % (Auto) 0 (0-6) % Baso % (Auto) 0.4 (0-2) % Absolute Neuts (auto) 18.3 H (1.5-7.7) 10^3/ul Absolute Lymphs (auto) 0.4 L (1.0-4.8) 10^3/ul Absolute Monos (auto) 1.1 H (0-0.8) 10^3/ul Absolute Eos (auto) 0 (0-0.6) 10^3/ul Absolute Basos (auto) 0.1 (0-0.2) 10^3/ul Absolute Nucleated RBC 0.01 10^3/ul Nucleated RBC % 0.1 Sodium 136 (133-145) mmol/L Potassium 6.1 H* (3.5-5.0) mmol/L Chloride 99 L (101-111) mmol/L Carbon Dioxide 21 L (22-32) mmol/L Anion Gap 16 H (2-11) mmol/L BUN 79 H (6-24) mg/dL Creatinine 5.63 H (0.51-0.95) mg/dL Est GFR ( Amer) 9.2 (>60) Est GFR (Non-Af Amer) 7.1 (>60) BUN/Creatinine Ratio 14.0 (8-20) Glucose 189 H (70-100) mg/dL Lactic Acid 1.4 (0.5-2.0) mmol/L Calcium 9.5 (8.6-10.3) mg/dL Total Bilirubin 0.50 (0.2-1.0) mg/dL AST 36 (13-39) U/L ALT 27 (7-52) U/L Alkaline Phosphatase 104 (34-104) U/L Troponin I 3.31 H* (<0.04) ng/mL Total Protein 6.3 L (6.4-8.9) g/dL Albumin 4.0 (3.2-5.2) g/dL Globulin 2.3 (2-4) g/dL Albumin/Globulin Ratio 1.7 (1-3) Result Diagrams: 01/05/17 03:53 01/05/17 03:53 Lab Statement: Any lab studies that have been ordered have been reviewed, and results considered in the medical decision making process. - EKG 0433 Cardiac Rate: NL - 82 bpm EKG Rhythm: Sinus Rhythm EKG Interpretation: ST elevation in anterior leads. No significant reciprocal changes. Complex Multi-Symp Course/Dx Assessment/Plan: Pt is a 86 y/o female transferred from [facility] presenting to [facility] c/o nausea, vomiting, and chills. Pt additionally reports chest pain that began yesterday. She currently feels SOB. Pt also notes back pain, mild headache She states she missed dialysis yesterday due to her symptoms of nausea and vomiting. Pt CT abd/pel from [facility] shows bilateral pleural effusion, bibasilar opacities, possible heart failure, constipation, and anascara. Her potassium was slightly elevated. UA shows UTI. Troponin was elevated. BNP was 4500. Potassium is 6.1, troponin is 3.31. I put in orders to bring down the potassium levels. EKG shows ST elevation in anterior leads, no significant reciprocal changes, and a concern for an CT. I discussed the EKG with Dr. Lucas who reports it is not a STEMI. I discussed the pt's case with Dr. Doty, who has agreed to accept the pt. - Diagnoses Provider Diagnoses: End stage renal disease, Hyperkalemia, CT, Sepsis, Pleural effusion - Physician Notifications Discussed Care Of Patient With: Sadia Doty Time Discussed With Above Provider: 04:45 Instructed by Provider To: Other - I discussed the case with Dr. Doty, who has agreed to admit the pt. AT 04:51 - I discussed the pt's EKG with Dr. Lucas who reported it was not a STEMI. - Critical Care Time Critical Care Time: 30-74 min - 45 minutes Discharge - Discharge Plan Condition: Stable Disposition: ADMITTED TO [facility] The documentation as recorded by the Sarthak ricks Angela accurately reflects the service I personally performed and the decisions made by me, Sarah Dinh MD.
[2017-01-06] MEDS: Levothyroxine TAB* 88 MCG TAB PO SCH (05:19)
[2017-01-06 05:45] LABS: Hematocrit 25 % (35-47); Hemoglobin 8.3 g/dl (12.0-16.0); Mean Corpuscular HGB Conc 33 g/dl (31-36); Mean Corpuscular Hemoglobin 32 pg (27-31); Mean Corpuscular Volume 98 fL (80-97); Mean Platelet Volume 8 um3 (7.4-10.4); Red Blood Count 2.58 10^6/ul (4.0-5.4); Red Cell Distribution Width 17 % (10.5-15); White Blood Count 13.9 10^3/ul (3.5-10.8)
[2017-01-06 06:13] LABS: Troponin I 1.65 ng/mL (<0.04)
[2017-01-06] MEDS ORDERED: nitroGLYCERIN DRIP* 250 ML ONE (06:54)
[2017-01-06] MEDS: nitroGLYCERIN DRIP* 25,000 MCG in PREMIX* 0 ML IV SCH (06:55)
[2017-01-06] MEDS: CMCS: Rosuvastatin (NF) 5 MG TAB PO SCH (09:08)
[2017-01-06] MEDS: Sodium Bicarbonate (ANTACID)* 650 MG TAB PO SCH ×2 (09:08→21:06)
[2017-01-06] MEDS: Clopidogrel TAB* 75 MG PO SCH (09:08)
[2017-01-06] MEDS: Folic Acid TAB* 1 MG PO SCH (09:08)
[2017-01-06] MEDS: Aspirin EC Low Dose* 81 MG TAB.EC PO SCH (09:08)
[2017-01-06] MEDS: Citalopram TAB* 20 MG PO SCH (09:08)
[2017-01-06] MEDS: Multivitamins/Minerals TAB PO SCH (09:08)
[2017-01-06] MEDS: Ondansetron INJ* 2 MG/ML VIAL IV PRN ×2 (09:27→13:12)
[2017-01-06] MEDS: Metoprolol Succinate XL TAB* 100 MG PO SCH ×2 (10:39→13:28)
--- NOTE | 2017-01-06 10:51 | PN ---
Progress Note - Progress Note Date of Service: 01/06/17 Note: Progress Note - Critical Care 24 hour events: -no new events noted -on NTG but 10 now -chest pain free, sob improved. awake, alert. nausea+ this morning, vom minimal -s/p HD yesterday -trop noted to be declining. Tele: NSR, noted NSVT yesterday x1 episode Vitals: Vital Signs Temp 97.4 F 01/06/17 07:31 Pulse 67 01/06/17 10:30 Resp 14 01/06/17 10:30 BP 93/49 01/06/17 10:30 Pulse Ox 98 01/06/17 10:30 Intake & Output 01/05/17 01/06/17 01/06/17 18:59 06:59 18:59 Intake Total 576 457 Output Total 0 Balance 576 457 Weight 114 lb 13.773 oz Intake: IV Fluids 299 ABX 299 Medicated IV 254 377 CC - Nitroglycerine/ 254 209 Tridil Heparin 168 Heparin 23 Oral 80 Output: Urine 0 O2/Vent: NC 3LPM, sat 97% Infusions: NTG 10, Heparin IV Current Medications: Acetaminophen (Tylenol Tab*) 650 mg PO Q4H PRN PRN Reason: PAIN Last Admin: 01/05/17 06:25 Dose: 650 mg Aspirin (Aspirin Ec Low Dose*) 81 mg PO DAILY [facility] Last Admin: 01/06/17 09:08 Dose: 81 mg Calcium Carbonate (Tums*) 500 mg PO Q4H PRN PRN Reason: INDIGESTION Citalopram Hydrobromide (Celexa Tab*) 20 mg PO DAILY [facility] Last Admin: 01/06/17 09:08 Dose: 20 mg Clopidogrel Bisulfate (Plavix Tab*) 75 mg PO DAILY [facility] Last Admin: 01/06/17 09:08 Dose: 75 mg Folic Acid (Folvite Tab*) 1 mg PO DAILY [facility] Last Admin: 01/06/17 09:08 Dose: 1 mg Heparin Sodium (Porcine) (Heparin Vial(*)) 0 units IV .PER PROTOCOL ESTEFANI PRN Reason: Protocol Last Admin: 01/05/17 05:55 Dose: 3,900 units Heparin Sodium/Dextrose (Heparin Drip 25,000 Units(*)) 25,000 units in 500 mls @ 0 mls/hr IVPB .PER RATE ESTEFANI; Per Protocol PRN Reason: Protocol Last Admin: 01/05/17 14:57 Dose: 14 mls/hr Nitroglycerin/Dextrose 25,000 (mcg/ IV Solution) 250 mls @ 6 mls/hr IV .PER PARAMETERS ESTEFANI; 10 MCG/MIN PRN Reason: Protocol Last Admin: 01/06/17 06:55 Dose: 6 mls/hr Cefepime HCl 0.5 gm/ Sodium (Chloride) 50 mls @ 100 mls/hr IVPB 1400 [facility] Levothyroxine Sodium (Synthroid Tab*) 88 mcg PO DAILY@0600 [facility] Last Admin: 01/06/17 05:19 Dose: 88 mcg Metoprolol Succinate (Toprol Xl Tab*) 100 mg PO DAILY [facility] Last Admin: 01/06/17 10:39 Dose: Not Given Morphine Sulfate (Morphine Inj (Syringe)*) 2 mg IV Q2H PRN PRN Reason: PAIN Last Admin: 01/05/17 22:12 Dose: 2 mg Multivitamins/Minerals (Theragran/Minerals Tab*) 1 tab PO DAILY [facility] Last Admin: 01/06/17 09:08 Dose: 1 tab Ondansetron HCl (Zofran Inj*) 4 mg IV Q4H PRN PRN Reason: NAUSEA/VOMITING Last Admin: 01/06/17 09:27 Dose: 4 mg Pharmacy Consult (Vancomycin - Dialysis Dosing*) 1 note FOLLOW UP .VANCO LEVEL [facility] Ropinirole HCl (Requip Tab*) 0.25 mg PO BEDTIME [facility] Last Admin: 01/05/17 21:29 Dose: 0.25 mg Rosuvastatin Calcium (Crestor (Nf)) 5 mg PO DAILY [facility] PRN Reason: Protocol Last Admin: 01/06/17 09:08 Dose: 5 mg Sodium Bicarbonate (Sodium Bicarbonate (Antacid)*) 650 mg PO BID [facility] Last Admin: 01/06/17 09:08 Dose: 650 mg Physical Exam: General: awake, alert, no distress, no diaphoresis Head: normocephalic, atraumatic HEENT: no pallor, no icterus, moist mucous membranes Neck: soft, supple, no jvd, no stridor CVS: normal rate, normal rhythm, no murmur Resp: bilateral air entry, RLL rhales minimal, no wheeze, no rhonchi, no acc muscle use Abdomen: soft, nontender, nondistended, bowel sounds present Ext: pulses+, warm, no edema Skin: intact, no breakdown, no dryness Neuro: awake, alert, orientedx2, moving all extremities, no gross focal deficit Labs: Laboratory Results - last 24 hr 01/05/17 01/05/17 01/05/17 11:52 11:52 12:48 WBC RBC Hgb Hct MCV MCH MCHC RDW Plt Count MPV Neut % (Auto) Lymph % (Auto) [place] % (Auto) Eos % (Auto) Baso % (Auto) Absolute Neuts (auto) Absolute Lymphs (auto) Absolute Monos (auto) Absolute Eos (auto) Absolute Basos (auto) Absolute Nucleated RBC Nucleated RBC % APTT 141.9 H* Sodium Potassium Chloride Carbon Dioxide Anion Gap BUN Creatinine Est GFR ( Amer) Est GFR (Non-Af Amer) BUN/Creatinine Ratio Glucose Calcium Magnesium Total Bilirubin AST ALT Alkaline Phosphatase CK-MB (CK-2) Troponin I 2.86 H* Total Protein Albumin Globulin Albumin/Globulin Ratio Amylase 154 H Lipase 34 01/05/17 01/05/17 01/05/17 21:53 22:03 23:02 WBC RBC Hgb Hct MCV MCH MCHC RDW Plt Count MPV Neut % (Auto) Lymph % (Auto) [place] % (Auto) Eos % (Auto) Baso % (Auto) Absolute Neuts (auto) Absolute Lymphs (auto) Absolute Monos (auto) Absolute Eos (auto) Absolute Basos (auto) Absolute Nucleated RBC Nucleated RBC % APTT 57.8 H Sodium 131 L Potassium TNP 4.5 Chloride 92 L Carbon Dioxide 28 Anion Gap 11 BUN 39 H Creatinine 3.04 H Est GFR ( Amer) 18.7 Est GFR (Non-Af Amer) 14.5 BUN/Creatinine Ratio 12.8 Glucose 202 H Calcium 8.1 L Magnesium TNP 1.9 Total Bilirubin 0.50 AST TNP 30 ALT 26 Alkaline Phosphatase 82 CK-MB (CK-2) Troponin I Total Protein 5.7 L Albumin 3.5 Globulin 2.2 Albumin/Globulin Ratio 1.6 Amylase Lipase 01/06/17 01/06/17 01/06/17 05:15 05:15 05:15 WBC 13.9 H RBC 2.58 L Hgb 8.3 L Hct 25 L MCV 98 H MCH 32 H MCHC 33 RDW 17 H Plt Count 164 MPV 8 Neut % (Auto) 84.9 H Lymph % (Auto) 4.2 L [place] % (Auto) 10.6 H Eos % (Auto) 0 Baso % (Auto) 0.3 Absolute Neuts (auto) 11.8 H Absolute Lymphs (auto) 0.6 L Absolute Monos (auto) 1.5 H Absolute Eos (auto) 0 Absolute Basos (auto) 0 Absolute Nucleated RBC 0 Nucleated RBC % 0 APTT 70.1 H Sodium Potassium Chloride Carbon Dioxide Anion Gap BUN 49 H Creatinine Est GFR ( Amer) Est GFR (Non-Af Amer) BUN/Creatinine Ratio Glucose Calcium Magnesium Total Bilirubin AST ALT Alkaline Phosphatase CK-MB (CK-2) 5.3 Troponin I 1.65 H* Total Protein Albumin Globulin Albumin/Globulin Ratio Amylase 71 Lipase Imaging: ECHO 01/05 mod LV systolic dysfunction, anterior/anteroseptal hypo with ef 350- 40%, Assessment: 86y F pmhx ESRD on HD, CAD, former smoker, CHF, HTN, DM, CAD; went to [facility] for Nausea/vom, chest pain, sob. She states she missed HD the day prior to admission to [place] due to nausea/vom. When transferred over to [facility], her records indicate she had a CT chest with bibasilar consolidation vs congestion. Elevated troponin 1.3, elevated BNP 4500, elevated potassium. Urinalysis just with LE. She was transferred here to [facility] for possible NE/STEMI. Here interventional cardiology evaluated her and did not deem EKG to be true STEMI. -Pneumonia, RLL/AJYME; HCAP -Acute Hypoxic Respiratory Failure -Severe Sepsis 2/2 to pneumonia, unspec organism -acute on chronic decompensated LV systolic dysfunction -Pulmonary Congestion/fluid overload -Myocardial Infarction, suspect NSTEMI at this point -elevated amylase, r/o pancreatitis -hyperkalemia ESRD on HD Chronic LV systolic dysfunction Plan: Neuro- mental status stable. delirium prec. CVS- hypertensive, on metoprolol. cont asa/plavix/statin/heparin iv. ptt therapeutic. chest pain free now. cont to wean down NTG. will add further antihypertensive medications. trop noted to be lower. mod on echo. EKG with Qwaves so infarct already has set in. ECHO with anterior hypokinesis focallly. for now medical management as per cardiology. thought overall is NE has already occurred given downtrending troponin and given her comorbidities, may be high risk at this time. Re-eval after more stable and volume status improved, then consider stress +/- cath ? Resp- on 5L -> 3L, distress improved. s/p HD. on IV abx for pneumonia. bronchodilators prn. Cefepime 500mg iv qdaily and vanco IV with HD, checking trought that day. sputum cx. blood cx. ID- leukocytosis improved, afebrile. RLL and JAYME infiltrate on CXR. cover for HCAP. sputum and blood cx. Cefepime 500mg iv daily (day#2), vanco 1gm with HD ( day#2). GI- renal diet. amylase decreased. antiemetics prn for nausea/vom. watch for coffee ground emesis. Renal-HD ongoing. Pulm congestion+. improved to 4.5 Heme- noted drop in all counts slightly, will monitor for now. hg 8s from 10s. on asa/plavix/heparin iv. Endo- insulin coverage. Musculsk- pressure ulcer prophylaxis Wounds- none DVT prophylaxis: IV heparin GI prophylaxis: pepcid Central Line: no Arterial Line: no Parkinson Cathetor: no Disposition: ICU for respiratory failure, pneumonia, nstemi Code Status: full code as per son Total Critical Care time is 30 minutes, excluding procedures/teaching Trent Alvarez MD Director [place] (Electronically Signed)
[2017-01-06] MEDS: Cefepime(*) 0.5 GM in NS 0.9% 50 ML* 50 ML IVPB SCH (13:28)
[2017-01-06] MEDS: Acetaminophen TAB* 325 MG PO PRN (15:29)
[2017-01-06] MEDS: Simethicone TAB* 80 MG TAB.CHEW PO SCH (15:29)
[2017-01-06] MEDS: CMCS - Pantoprazole TAB (NF) 40 MG TAB PO SCH (16:48)
[2017-01-06 17:43] LABS: BUN/Creatinine Ratio 14.1 (8-20); Calcium 7.5 mg/dL (8.6-10.3); EGFR Non-African American 10.9 (>60); Potassium 4.2 mmol/L (3.5-5.0)
[2017-01-06] MEDS: Heparin DRIP 25,000 UNITS(*) 25,000 UNITS/500 ML BAG IVPB SCH (18:43)
[2017-01-06] MEDS: Ropinirole TAB* 0.5 MG TAB PO SCH (21:05)
[2017-01-07 04:59] LABS: Hematocrit 28 % (35-47); Hemoglobin 8.9 g/dl (12.0-16.0); Mean Corpuscular HGB Conc 32 g/dl (31-36); Mean Corpuscular Hemoglobin 32 pg (27-31); Mean Corpuscular Volume 98 fL (80-97); Mean Platelet Volume 8 um3 (7.4-10.4); Red Blood Count 2.81 10^6/ul (4.0-5.4); Red Cell Distribution Width 17 % (10.5-15); White Blood Count 11.2 10^3/ul (3.5-10.8)
[2017-01-07 05:01] LABS: BUN/Creatinine Ratio 14.5 (8-20); Calcium 7.5 mg/dL (8.6-10.3); EGFR African American 12.4 (>60); EGFR Non-African American 9.6 (>60); Potassium 4.4 mmol/L (3.5-5.0)
[2017-01-07] MEDS: Levothyroxine TAB* 88 MCG TAB PO SCH (05:41)
[2017-01-07] MEDS: Metoprolol Succinate XL TAB* 100 MG PO SCH (08:16)
[2017-01-07] MEDS: Multivitamins/Minerals TAB PO SCH (08:17)
[2017-01-07] MEDS: Sodium Bicarbonate (ANTACID)* 650 MG TAB PO SCH ×2 (08:17→21:37)
[2017-01-07] MEDS: Clopidogrel TAB* 75 MG PO SCH (08:17)
[2017-01-07] MEDS: CMCS: Rosuvastatin (NF) 5 MG TAB PO SCH (08:17)
[2017-01-07] MEDS: Simethicone TAB* 80 MG TAB.CHEW PO SCH ×3 (08:18→15:49)
[2017-01-07] MEDS: CMCS - Pantoprazole TAB (NF) 40 MG TAB PO SCH (08:18)
[2017-01-07] MEDS: Citalopram TAB* 20 MG PO SCH (08:18)
[2017-01-07] MEDS: Aspirin EC Low Dose* 81 MG TAB.EC PO SCH (08:19)
[2017-01-07] MEDS: Folic Acid TAB* 1 MG PO SCH (08:19)
[2017-01-07] MEDS: Ondansetron INJ* 2 MG/ML VIAL IV PRN (08:30)
[2017-01-07] MEDS ORDERED: hydrALAZINE IV* 20 MG/ML VIAL IV SLOW PU PRN (09:09)
--- NOTE | 2017-01-07 09:21 | PN ---
Progress Note - Progress Note Date of Service: 01/07/17 Note: Progress Note - Critical Care 24 hour events: -still mild nausea, no chest pain, some dicomfort upper chest/lower neck at times -NSVT overnight 11 beat run which broke spontaneously -off ntg infusion Tele: NSR, noted NSVT yesterday x1 episode again Vitals: Vital Signs Temp 97.0 F 01/07/17 07:45 Pulse 71 01/07/17 07:00 Resp 14 01/07/17 07:00 BP 160/78 01/07/17 07:00 Pulse Ox 98 01/07/17 07:00 Intake & Output 01/06/17 01/07/17 01/07/17 18:59 06:59 18:59 Intake Total 461 410 Output Total 0 Balance 461 410 Weight 129 lb 6.581 oz Intake: IV Fluids 69 ABX 69 IVPB 50 ABX 50 Medicated IV 182 210 CC - Nitroglycerine/ 56 Tridil Heparin 126 210 Oral 210 150 Output: Urine 0 O2/Vent: NC 2LPM, sat 100% Infusions: Heparin IV Current Medications: Acetaminophen (Tylenol Tab*) 650 mg PO Q4H PRN PRN Reason: PAIN Last Admin: 01/06/17 15:29 Dose: 650 mg Aspirin (Aspirin Ec Low Dose*) 81 mg PO DAILY [facility] Last Admin: 01/07/17 08:19 Dose: 81 mg Calcium Carbonate (Tums*) 500 mg PO Q4H PRN PRN Reason: INDIGESTION Citalopram Hydrobromide (Celexa Tab*) 20 mg PO DAILY [facility] Last Admin: 01/07/17 08:18 Dose: 20 mg Clopidogrel Bisulfate (Plavix Tab*) 75 mg PO DAILY [facility] Last Admin: 01/07/17 08:17 Dose: 75 mg Folic Acid (Folvite Tab*) 1 mg PO DAILY [facility] Last Admin: 01/07/17 08:19 Dose: 1 mg Heparin Sodium (Porcine) (Heparin Vial(*)) 0 units IV .PER PROTOCOL [facility] PRN Reason: Protocol Last Admin: 01/05/17 05:55 Dose: 3,900 units Hydralazine HCl (Apresoline Iv*) 10 mg IV SLOW PU Q4H PRN PRN Reason: SYSTOLIC BP GREATER THAN: Heparin Sodium/Dextrose (Heparin Drip 25,000 Units(*)) 25,000 units in 500 mls @ 0 mls/hr IVPB .PER RATE ESTEFANI; Per Protocol PRN Reason: Protocol Last Admin: 01/06/17 18:43 Dose: 14 mls/hr Nitroglycerin/Dextrose 25,000 (mcg/ IV Solution) 250 mls @ 6 mls/hr IV .PER PARAMETERS ESTEFANI; 10 MCG/MIN PRN Reason: Protocol Last Admin: 01/06/17 06:55 Dose: 6 mls/hr Cefepime HCl 0.5 gm/ Sodium (Chloride) 50 mls @ 100 mls/hr IVPB 1400 [facility] Last Admin: 01/06/17 13:28 Dose: 100 mls/hr Levothyroxine Sodium (Synthroid Tab*) 88 mcg PO DAILY@0600 [facility] Last Admin: 01/07/17 05:41 Dose: 88 mcg Metoprolol Succinate (Toprol Xl Tab*) 100 mg PO DAILY [facility] Last Admin: 01/07/17 08:16 Dose: 100 mg Morphine Sulfate (Morphine Inj (Syringe)*) 2 mg IV Q2H PRN PRN Reason: PAIN Last Admin: 01/05/17 22:12 Dose: 2 mg Multivitamins/Minerals (Theragran/Minerals Tab*) 1 tab PO DAILY [facility] Last Admin: 01/07/17 08:17 Dose: 1 tab Ondansetron HCl (Zofran Inj*) 4 mg IV Q4H PRN PRN Reason: NAUSEA/VOMITING Last Admin: 01/07/17 08:30 Dose: 4 mg Pantoprazole Sodium (Protonix Tab (Nf)) 40 mg PO DAILY [facility] Last Admin: 01/07/17 08:18 Dose: 40 mg Pharmacy Consult (Vancomycin - Dialysis Dosing*) 1 note FOLLOW UP .VANCO LEVEL [facility] Ropinirole HCl (Requip Tab*) 0.25 mg PO BEDTIME [facility] Last Admin: 01/06/17 21:05 Dose: 0.25 mg Rosuvastatin Calcium (Crestor (Nf)) 5 mg PO DAILY [facility] PRN Reason: Protocol Last Admin: 01/07/17 08:17 Dose: 5 mg Simethicone (Mylicon Tab*) 80 mg PO AC [facility] Last Admin: 01/07/17 08:18 Dose: 80 mg Sodium Bicarbonate (Sodium Bicarbonate (Antacid)*) 650 mg PO BID [facility] Last Admin: 01/07/17 08:17 Dose: 650 mg Physical Exam: General: awake, alert, no distress, no diaphoresis Head: normocephalic, atraumatic HEENT: no pallor, no icterus, moist mucous membranes Neck: soft, supple, no jvd, no stridor CVS: normal rate, normal rhythm, no murmur Resp: bilateral air entry, RLL rhales minimal, no wheeze, no rhonchi, no acc muscle use Abdomen: soft, nontender, nondistended, bowel sounds present Ext: pulses+, warm, no edema Skin: intact, no breakdown, no dryness Neuro: awake, alert, orientedx2, moving all extremities, no gross focal deficit Labs: Laboratory Results - last 24 hr 01/06/17 01/07/17 01/07/17 16:50 04:36 04:36 WBC RBC Hgb Hct MCV MCH MCHC RDW Plt Count MPV Neut % (Auto) Lymph % (Auto) [place] % (Auto) Eos % (Auto) Baso % (Auto) Absolute Neuts (auto) Absolute Lymphs (auto) Absolute Monos (auto) Absolute Eos (auto) Absolute Basos (auto) Absolute Nucleated RBC Nucleated RBC % APTT > 212.0 H* Sodium 130 L 129 L Potassium 4.2 D 4.4 Chloride 90 L 88 L Carbon Dioxide 30 27 Anion Gap 10 14 H BUN 55 H 63 H Creatinine 3.90 H 4.33 H Est GFR ( Amer) 14.0 12.4 Est GFR (Non-Af Amer) 10.9 9.6 BUN/Creatinine Ratio 14.1 14.5 Glucose 193 H 197 H Calcium 7.5 L 7.5 L 01/07/17 04:36 WBC 11.2 H RBC 2.81 L Hgb 8.9 L Hct 28 L MCV 98 H MCH 32 H MCHC 32 RDW 17 H Plt Count 159 MPV 8 Neut % (Auto) 84.2 H Lymph % (Auto) 4.9 L [place] % (Auto) 9.9 H Eos % (Auto) 0.2 Baso % (Auto) 0.8 Absolute Neuts (auto) 9.4 H Absolute Lymphs (auto) 0.5 L Absolute Monos (auto) 1.1 H Absolute Eos (auto) 0 Absolute Basos (auto) 0.1 Absolute Nucleated RBC 0 Nucleated RBC % 0 APTT Sodium Potassium Chloride Carbon Dioxide Anion Gap BUN Creatinine Est GFR ( Amer) Est GFR (Non-Af Amer) BUN/Creatinine Ratio Glucose Calcium Imaging: ECHO 01/05 mod LV systolic dysfunction, anterior/anteroseptal hypo with ef 350- 40%, Assessment: 86y F pmhx ESRD on HD, CAD, former smoker, CHF, HTN, DM, CAD; went to [facility] for Nausea/vom, chest pain, sob. She states she missed HD the day prior to admission to [facility] due to nausea/vom. When transferred over to [facility], her records indicate she had a CT chest with bibasilar consolidation vs congestion. Elevated troponin 1.3, elevated BNP 4500, elevated potassium. Urinalysis just with LE. She was transferred here to [facility] for possible FL/STEMI. Here interventional cardiology evaluated her and did not deem EKG to be true STEMI. -Pneumonia, RLL/JAYME; HCAP -Acute Hypoxic Respiratory Failure -Severe Sepsis 2/2 to pneumonia, unspec organism -acute on chronic decompensated LV systolic dysfunction -Pulmonary Congestion/fluid overload -Myocardial Infarction, suspect NSTEMI at this point -hyperkalemia -Non-sustained VT, suspect ischemic in origin ESRD on HD Chronic LV systolic dysfunction Plan: Neuro- mental status stable. delirium prec. CVS- hypertensive, on metoprolol xl 100 daily. will add norvasv 10mg po daily. cont asa/plavix/statin/heparin iv. elevated ptt, readjusting as per protocol. nausea still present, antiemetics prn. resp status improved, chest pain minimal now. noted NSVT overnight 11 beat run, cont metoprolol xl 100mg po qam, start metoprolol 50mg xl po qpm. K okay today. mod on echo. EKG with Qwaves so infarct already has set in. ECHO with anterior hypokinesis focallly. for now medical management as per cardiology. thought overall is FL has already occurred given downtrending troponin and given her comorbidities, may be high risk at this time. Re-eval after more stable and volume status improved, then consider stress +/- cath ? Resp- on 2L, distress improved. s/p HD, needs HD tomorrow again. on IV abx for pneumonia. bronchodilators prn. Cefepime 500mg iv qdaily and vanco IV with HD, checking trought that day. sputum cx. blood cx. ID- leukocytosis improving, afebrile. RLL and JAYME infiltrate on CXR. cover for HCAP. sputum and blood cx. Cefepime 500mg iv daily (day#3), vanco 1gm with HD ( day#3). GI- renal diet. amylase elevation likely from GI discomfort, lipase was normal, do not suspect pancreatitis. antiemetics prn for nausea/vom. watch for coffee ground emesis. Renal- HD as renal, likely needs tomorrow. resp status improved. K 4.4 today. Heme- anemiam hg stable 8s. plt stable. IV heparin, ptt supratherapeutic, no bleeding, adjusting as per protocol. on asa/plavix/heparin iv. Endo- insulin coverage. Musculsk- pressure ulcer prophylaxis Wounds- none DVT prophylaxis: IV heparin GI prophylaxis: pepcid Central Line: no Arterial Line: no Parkinson Cathetor: no Disposition: ICU for pneumonia, nstemi. remains hemodyn stable. can be transferred to Telemetry today with continued medical management. Code Status: full code as per son Trent MD [employer] (Electronically Signed)
[2017-01-07] MEDS: amLODIPine TAB* 5 MG PO SCH (09:39)
[2017-01-07 12:30] LABS: Urine Bacteria Absent (Absent); Urine Bilirubin Negative (Negative); Urine Glucose Negative (Negative); Urine Nitrite Negative (Negative)
[2017-01-07] MEDS: Cefepime(*) 0.5 GM in NS 0.9% 50 ML* 50 ML IVPB SCH (14:09)
[2017-01-07] MEDS: Heparin VIAL(*) 5000 UNITS/ML VIAL (FIVE THOUSAND) IV SCH (16:14)
[2017-01-07] MEDS: Ropinirole TAB* 0.5 MG TAB PO SCH (21:38)
[2017-01-07] MEDS: Metoprolol Succinate XL TAB* 50 MG PO SCH (21:38)
[2017-01-08] MEDS: Levothyroxine TAB* 88 MCG TAB PO SCH (05:49)
[2017-01-08] MEDS ORDERED: Vancomycin Random Level* NOTE FOLLOW UP ONE (06:00)
[2017-01-08 08:25] LABS: Hematocrit 27 % (35-47); Mean Corpuscular HGB Conc 33 g/dl (31-36); Mean Corpuscular Hemoglobin 32 pg (27-31); Mean Corpuscular Volume 97 fL (80-97); Mean Platelet Volume 8 um3 (7.4-10.4); Red Blood Count 2.81 10^6/ul (4.0-5.4); Red Cell Distribution Width 16 % (10.5-15); White Blood Count 10.4 10^3/ul (3.5-10.8)
[2017-01-08] MEDS: Sodium Bicarbonate (ANTACID)* 650 MG TAB PO SCH ×2 (08:28→20:47)
[2017-01-08] MEDS: Citalopram TAB* 20 MG PO SCH (08:28)
[2017-01-08] MEDS: Metoprolol Succinate XL TAB* 100 MG PO SCH (08:28)
[2017-01-08] MEDS: CMCS - Pantoprazole TAB (NF) 40 MG TAB PO SCH (08:28)
[2017-01-08] MEDS: Aspirin EC Low Dose* 81 MG TAB.EC PO SCH (08:29)
[2017-01-08] MEDS: Clopidogrel TAB* 75 MG PO SCH (08:29)
[2017-01-08] MEDS: Multivitamins/Minerals TAB PO SCH (08:29)
[2017-01-08] MEDS: amLODIPine TAB* 5 MG PO SCH (08:29)
[2017-01-08] MEDS: Folic Acid TAB* 1 MG PO SCH (08:30)
[2017-01-08] MEDS: CMCS: Rosuvastatin (NF) 5 MG TAB PO SCH (08:30)
[2017-01-08] MEDS: Simethicone TAB* 80 MG TAB.CHEW PO SCH ×3 (08:30→17:33)
[2017-01-08 08:35] LABS: BUN/Creatinine Ratio 14.7 (8-20); Calcium 7.4 mg/dL (8.6-10.3); EGFR African American 9.4 (>60); EGFR Non-African American 7.3 (>60); Potassium 4.5 mmol/L (3.5-5.0)
[2017-01-08 08:39] LABS: Vancomycin Random 9.1 mcg/mL
[2017-01-08] MEDS: Heparin VIAL(*) 5000 UNITS/ML VIAL (FIVE THOUSAND) IV SCH (08:51)
[2017-01-08] MEDS: Heparin DRIP 25,000 UNITS(*) 25,000 UNITS/500 ML BAG IVPB SCH (08:53)
--- NOTE | 2017-01-08 11:11 | PN ---
Subjective Date of Service: 01/08/17 Interval History: This is an 86 yo female initially transferred from [facility] to our ICU with c/o n/v, SOB and CP. She has been treated for severe sepsis and acute resp failure due to HCAP and a NSTEMI. Patient was transferred to telemetry unit yesterday afternoon. This am, patient reports no c/o CP or SOB. Occasional nausea, but none currently and her appetite is improving. She reports feeling weak, but has no complaints apart from that. Objective Active Medications: Acetaminophen (Tylenol Tab*) 650 mg PO Q4H PRN PRN Reason: PAIN Last Admin: 01/06/17 15:29 Dose: 650 mg Amlodipine Besylate (Norvasc Tab*) 10 mg PO DAILY [facility] Last Admin: 01/08/17 08:29 Dose: 10 mg Aspirin (Aspirin Ec Low Dose*) 81 mg PO DAILY [facility] Last Admin: 01/08/17 08:29 Dose: 81 mg Calcium Carbonate (Tums*) 500 mg PO Q4H PRN PRN Reason: INDIGESTION Citalopram Hydrobromide (Celexa Tab*) 20 mg PO DAILY [facility] Last Admin: 01/08/17 08:28 Dose: 20 mg Clopidogrel Bisulfate (Plavix Tab*) 75 mg PO DAILY [facility] Last Admin: 01/08/17 08:29 Dose: 75 mg Folic Acid (Folvite Tab*) 1 mg PO DAILY [facility] Last Admin: 01/08/17 08:30 Dose: 1 mg Hydralazine HCl (Apresoline Iv*) 10 mg IV SLOW PU Q4H PRN PRN Reason: SYSTOLIC BP GREATER THAN: Last Admin: 01/07/17 09:39 Dose: 10 mg Cefepime HCl 0.5 gm/ Sodium (Chloride) 50 mls @ 100 mls/hr IVPB 1400 [facility] Last Admin: 01/07/17 14:09 Dose: 100 mls/hr Levothyroxine Sodium (Synthroid Tab*) 88 mcg PO DAILY@0600 [facility] Last Admin: 01/08/17 05:49 Dose: 88 mcg Metoprolol Succinate (Toprol Xl Tab*) 100 mg PO DAILY [facility] Last Admin: 01/08/17 08:28 Dose: 100 mg Metoprolol Succinate (Toprol Xl Tab*) 50 mg PO BEDTIME [facility] Last Admin: 01/07/17 21:38 Dose: 50 mg Morphine Sulfate (Morphine Inj (Syringe)*) 2 mg IV Q2H PRN PRN Reason: PAIN Last Admin: 01/05/17 22:12 Dose: 2 mg Multivitamins/Minerals (Theragran/Minerals Tab*) 1 tab PO DAILY [facility] Last Admin: 01/08/17 08:29 Dose: 1 tab Ondansetron HCl (Zofran Inj*) 4 mg IV Q4H PRN PRN Reason: NAUSEA/VOMITING Last Admin: 01/07/17 08:30 Dose: 4 mg Pantoprazole Sodium (Protonix Tab (Nf)) 40 mg PO DAILY [facility] Last Admin: 01/08/17 08:28 Dose: 40 mg Pharmacy Consult (Vancomycin - Dialysis Dosing*) 1 note FOLLOW UP .VANCO LEVEL [facility] Ropinirole HCl (Requip Tab*) 0.25 mg PO BEDTIME [facility] Last Admin: 01/07/17 21:38 Dose: 0.25 mg Rosuvastatin Calcium (Crestor (Nf)) 5 mg PO DAILY [facility] PRN Reason: Protocol Last Admin: 01/08/17 08:30 Dose: 5 mg Simethicone (Mylicon Tab*) 80 mg PO AC [facility] Last Admin: 01/08/17 08:30 Dose: 80 mg Sodium Bicarbonate (Sodium Bicarbonate (Antacid)*) 650 mg PO BID [facility] Last Admin: 01/08/17 08:28 Dose: 650 mg Vital Signs: Temp Pulse Resp BP Pulse Ox 98.1 F 73 18 145/57 97 01/08/17 07:27 01/08/17 07:27 01/08/17 08:00 01/08/17 07:27 01/08/17 07:27 Oxygen Devices in Use Now: Nasal Cannula Appearance: Mildly fatigued but relatively well appearing elderly female in NAD Respiratory: Symmetrical Chest Expansion and Respiratory Effort, Clear to Auscultation Cardiovascular: NL Sounds; No Murmurs; No JVD, RRR Extremities: No Edema Skin: No Rash or Ulcers, - - she does have ecchymosis over the L ankle, patient is unsure of recent injury Neurological: Alert and Oriented x 3 Result Diagrams: 01/08/17 07:40 01/08/17 07:40 Additional Lab and Data: . Microbiology and Other Data: Microbiology 01/07/17 11:57 Urine Culture - Final Urine 01/05/17 06:55 Nasal Screen MRSA (PCR)(HEIDI) - Final Nasal Mrsa Negative Assess/Plan/Problems-Billing Assessment: This is an 86 yo female with ESRD on HD, CHF, HTN, DM and CAD transferred from [facility] initially requiring ICU treatment for acute respiratory failure and severe sepsis secondary to HCAP with NSTEMI. - Patient Problems (1) Severe sepsis Comment: Secondary to PNA Improving (2) Acute respiratory failure Comment: Resolved Secondary to PNA (3) HCAP (healthcare-associated pneumonia) Comment: Improving resp status, stable on NC Cont Cefepime/Vanco (4) NSTEMI (non-ST elevated myocardial infarction) Comment: May represent old infarct, patient gives a h/o severe CP several days prior to admission Stopping heparin drip after 72 hrs Reassessment by cardiology pending, consider stress testing to help determine if cardiac cath is indicated Cont ASA, Plavix, BB, statin (5) Acute on chronic systolic heart failure Comment: Improved Now appears euvolemic EF 35-40% (6) V-tach Comment: Likely ischemic in origin No dysrhythmias in ~24 hrs (7) ESRD (end stage renal disease) Comment: On HD, scheduled for today (8) Diabetes Comment: Unsure of the history on this No home hypoglycemic medications listed Noted hyperglycemia, check HgbA1c (9) Full code status (10) DVT prophylaxis Comment: Heparin drip stopped, transfer to heparin for additional prophylaxis Status and Disposition: Inpatient. Unsure of dc planning at this time. Will ask PT/OT to start working with her to help with dispo planning
[2017-01-08] MEDS ORDERED: Vancomycin(*) 750 MG in NS 0.9% 250 ML* 250 ML IVPB ONE (16:00)
[2017-01-08] MEDS: Cefepime(*) 0.5 GM in NS 0.9% 50 ML* 50 ML IVPB SCH ×2 (17:18→21:09)
[2017-01-08] MEDS: Ropinirole TAB* 0.5 MG TAB PO SCH (20:46)
[2017-01-08] MEDS: Metoprolol Succinate XL TAB* 50 MG PO SCH (20:47)
[2017-01-08] MEDS: Acetaminophen TAB* 325 MG PO PRN (20:47)
[2017-01-08] MEDS: Heparin VIAL(*) 5000 UNITS/ML VIAL (FIVE THOUSAND) SUBCUT SCH (20:52)
[2017-01-09] MEDS: Acetaminophen TAB* 325 MG PO PRN ×2 (05:48→20:04)
[2017-01-09] MEDS: Levothyroxine TAB* 88 MCG TAB PO SCH (05:49)
[2017-01-09] MEDS: Heparin VIAL(*) 5000 UNITS/ML VIAL (FIVE THOUSAND) SUBCUT SCH ×3 (05:51→22:02)
[2017-01-09 06:07] LABS: Hematocrit 26 % (35-47); Hemoglobin 8.8 g/dl (12.0-16.0); Mean Corpuscular HGB Conc 33 g/dl (31-36); Mean Corpuscular Hemoglobin 32 pg (27-31); Mean Corpuscular Volume 96 fL (80-97); Mean Platelet Volume 8 um3 (7.4-10.4); Red Blood Count 2.74 10^6/ul (4.0-5.4); Red Cell Distribution Width 16 % (10.5-15); White Blood Count 9.2 10^3/ul (3.5-10.8)
[2017-01-09 06:19] LABS: BUN/Creatinine Ratio 14.9 (8-20); Calcium 7.7 mg/dL (8.6-10.3); EGFR African American 8.4 (>60); EGFR Non-African American 6.5 (>60); Potassium 4.6 mmol/L (3.5-5.0)
[2017-01-09] MEDS: Simethicone TAB* 80 MG TAB.CHEW PO SCH ×3 (07:37→17:36)
[2017-01-09] MEDS ORDERED: Aminophylline IV* 25 MG/ML 10 ML VIAL ONE (09:51)
[2017-01-09] MEDS ORDERED: Regadenoson* 0.4 MG/5 ML SYRINGE ONE (09:51)
--- NOTE | 2017-01-09 12:22 | RAD ---
Edited for charges. INDICATION: NSTEMI COMPARISON: There are no prior studies available for comparison. Technique: A single day myocardial perfusion stress study was performed. Initially the resting study was performed. The patient was given an intravenous injection of 10.1 mCi of technetium 99m tetrofosmin and and the heart was imaged in multiple projections. The patient returned later in the day and under the direction of Dr. Vo, the patient was given intervenous injection of Lexiscan. Subsequently the patient was given intravenous injection of 25.8 mCi of technetium 99m tetrofosmin and the heart was imaged in multiple projections. Images were reconstructed in the axial, sagittal and coronal planes and in a 3- D format. FINDINGS: There is an overall hypokinesis and dyskinesis in the cardiac apex. The left ventricular ejection fraction is calculated to be 38%. Review of the images demonstrates moderate to large area of decreased activity present within the apex extending into the anterior and inferior albarran present on both the post pharmacologic stress and resting images most consistent with a infarct. There is suggestion of mild bisi-infarct ischemia along the anterior aspect of the infarct. No other areas of ischemic change are noted. IMPRESSION: 1. MODERATE TO LARGE INFARCT WITH MILD BISI-INFARCT ISCHEMIA. 2. DECREASED LEFT VENTRICULAR EJECTION FRACTION OF 38%. ASSESSMENT: Intermediate risk. Based on imaging criteria from ACC/AHA 2002 Guideline Update for the Management of Patients With Chronic Stable Angina Table 23. Noninvasive Risk Stratification. MTDD
[2017-01-09] MEDS ORDERED: Epoetin Alfa* 10,000 UNITS/ML VIAL IV ONE (13:00)
--- NOTE | 2017-01-09 16:52 | PN ---
Subjective Date of Service: 01/09/17 Interval History: Patient had some dizziness and SOB overnight. Her usual HD was delayed for unknown reasons, but she was dialyzed today. She is complaining of some mild nausea at the time of evaluation and appears fatigued. Denies CP or SOB. Objective Active Medications: Acetaminophen (Tylenol Tab*) 650 mg PO Q4H PRN PRN Reason: PAIN Last Admin: 01/09/17 05:48 Dose: 650 mg Amlodipine Besylate (Norvasc Tab*) 10 mg PO DAILY [facility] Last Admin: 01/08/17 08:29 Dose: 10 mg Aspirin (Aspirin Ec Low Dose*) 81 mg PO DAILY [facility] Last Admin: 01/08/17 08:29 Dose: 81 mg Calcium Carbonate (Tums*) 500 mg PO Q4H PRN PRN Reason: INDIGESTION Citalopram Hydrobromide (Celexa Tab*) 20 mg PO DAILY [facility] Last Admin: 01/08/17 08:28 Dose: 20 mg Clopidogrel Bisulfate (Plavix Tab*) 75 mg PO DAILY [facility] Last Admin: 01/08/17 08:29 Dose: 75 mg Folic Acid (Folvite Tab*) 1 mg PO DAILY [facility] Last Admin: 01/08/17 08:30 Dose: 1 mg Heparin Sodium (Porcine) (Heparin Vial(*)) 5,000 units SUBCUT Q8HR [facility] Last Admin: 01/09/17 05:51 Dose: 5,000 units Hydralazine HCl (Apresoline Iv*) 10 mg IV SLOW PU Q4H PRN PRN Reason: SYSTOLIC BP GREATER THAN: Last Admin: 01/07/17 09:39 Dose: 10 mg Cefepime HCl 0.5 gm/ Sodium (Chloride) 50 mls @ 100 mls/hr IVPB 2000 [facility] Last Admin: 01/08/17 21:09 Dose: Not Given Vancomycin HCl 750 mg/ Sodium (Chloride) 250 mls @ 166.667 mls/hr IVPB 1700 ONE Stop: 01/09/17 18:29 Levothyroxine Sodium (Synthroid Tab*) 88 mcg PO DAILY@0600 [facility] Last Admin: 01/09/17 05:49 Dose: 88 mcg Metoprolol Succinate (Toprol Xl Tab*) 100 mg PO DAILY [facility] Last Admin: 01/08/17 08:28 Dose: 100 mg Metoprolol Succinate (Toprol Xl Tab*) 50 mg PO BEDTIME [facility] Last Admin: 01/08/17 20:47 Dose: 50 mg Morphine Sulfate (Morphine Inj (Syringe)*) 2 mg IV Q2H PRN PRN Reason: PAIN Last Admin: 01/05/17 22:12 Dose: 2 mg Multivitamins/Minerals (Theragran/Minerals Tab*) 1 tab PO DAILY [facility] Last Admin: 01/08/17 08:29 Dose: 1 tab Ondansetron HCl (Zofran Inj*) 4 mg IV Q4H PRN PRN Reason: NAUSEA/VOMITING Last Admin: 01/07/17 08:30 Dose: 4 mg Pantoprazole Sodium (Protonix Tab (Nf)) 40 mg PO DAILY [facility] Last Admin: 01/08/17 08:28 Dose: 40 mg Pharmacy Consult (Vancomycin - Dialysis Dosing*) 1 note FOLLOW UP .VANCO LEVEL [facility] Ropinirole HCl (Requip Tab*) 0.25 mg PO BEDTIME [facility] Last Admin: 01/08/17 20:46 Dose: 0.25 mg Rosuvastatin Calcium (Crestor (Nf)) 5 mg PO DAILY [facility] PRN Reason: Protocol Last Admin: 01/08/17 08:30 Dose: 5 mg Simethicone (Mylicon Tab*) 80 mg PO AC [facility] Last Admin: 01/09/17 07:37 Dose: 80 mg Sodium Bicarbonate (Sodium Bicarbonate (Antacid)*) 650 mg PO BID [facility] Last Admin: 01/08/17 20:47 Dose: 650 mg Vital Signs: Temp Pulse Resp BP Pulse Ox 97.8 F 78 16 150/69 97 01/09/17 15:58 01/09/17 16:01 01/09/17 15:58 01/09/17 16:01 01/09/17 16:01 Oxygen Devices in Use Now: Nasal Cannula Appearance: Elderly female in NAD, but appears quite lethargic Respiratory: Symmetrical Chest Expansion and Respiratory Effort, Clear to Auscultation Cardiovascular: RRR, - - loud murmur Abdominal: NL Sounds; No Tenderness; No Distention Extremities: No Edema Skin: No Rash or Ulcers Neurological: - - lethargic, unable to assess level of orientation Result Diagrams: 01/09/17 05:30 01/09/17 05:30 Additional Lab and Data: . Microbiology and Other Data: Microbiology 01/07/17 11:57 Urine Culture - Final Urine 01/05/17 06:55 Nasal Screen MRSA (PCR)(HEIDI) - Final Nasal Mrsa Negative Assess/Plan/Problems-Billing Assessment: This is an 86 yo female with ESRD on HD, CHF, HTN, DM and CAD transferred from [facility] initially requiring ICU treatment for acute respiratory failure and severe sepsis secondary to HCAP with NSTEMI. - Patient Problems (1) Severe sepsis Comment: Secondary to PNA Improving (2) Acute respiratory failure Comment: Resolved Secondary to PNA (3) HCAP (healthcare-associated pneumonia) Comment: Improving resp status, stable on NC Cont Cefepime/Vanco (4) NSTEMI (non-ST elevated myocardial infarction) Comment: May represent old infarct, patient gives a h/o severe CP several days prior to admission Stopped heparin drip after 72 hrs Stress test completed today which demonstrates moderate to large infarct with a small amount of sushma-infarct ischemia, cardiology recommends continuing medical management Cont ASA, Plavix, BB, statin (5) Acute on chronic systolic heart failure Comment: Improved Now appears euvolemic EF 35-40% (6) V-tach Comment: Likely ischemic in origin No dysrhythmias in ~24 hrs (7) ESRD (end stage renal disease) Comment: On HD, scheduled for today (8) Diabetes Comment: Unsure of the history on this No home hypoglycemic medications listed Noted hyperglycemia, HgbA1c 5.7% Hyperglycemia may just be a stress response to infection, no chronic treatment necessary and hyperglycemia is mild enough that it does not require insulin correction at this time (9) Full code status (10) DVT prophylaxis Comment: Heparin drip stopped, transfer to heparin for additional prophylaxis Status and Disposition: Inpatient. Requested PT/OT to start working with her to help with dispo planning. Likely ready for dc in 2-3d.
[2017-01-09] MEDS ORDERED: Vancomycin(*) 750 MG in NS 0.9% 250 ML* 250 ML IVPB ONE (17:00)
[2017-01-09] MEDS: Clopidogrel TAB* 75 MG PO SCH (17:40)
[2017-01-09] MEDS: Sodium Bicarbonate (ANTACID)* 650 MG TAB PO SCH ×2 (17:41→20:05)
[2017-01-09] MEDS: Citalopram TAB* 20 MG PO SCH (17:41)
[2017-01-09] MEDS: CMCS - Pantoprazole TAB (NF) 40 MG TAB PO SCH (17:41)
[2017-01-09] MEDS: CMCS: Rosuvastatin (NF) 5 MG TAB PO SCH (17:41)
[2017-01-09] MEDS: Folic Acid TAB* 1 MG PO SCH (17:42)
[2017-01-09] MEDS: Metoprolol Succinate XL TAB* 100 MG PO SCH (17:58)
[2017-01-09] MEDS: amLODIPine TAB* 5 MG PO SCH (17:59)
[2017-01-09] MEDS: Aspirin EC Low Dose* 81 MG TAB.EC PO SCH (17:59)
[2017-01-09] MEDS: Multivitamins/Minerals TAB PO SCH (17:59)
[2017-01-09] MEDS: Ropinirole TAB* 0.5 MG TAB PO SCH (20:05)
[2017-01-09] MEDS: Metoprolol Succinate XL TAB* 50 MG PO SCH (20:05)
[2017-01-09] MEDS: Cefepime(*) 0.5 GM in NS 0.9% 50 ML* 50 ML IVPB SCH (20:10)
[2017-01-10] MEDS: Levothyroxine TAB* 88 MCG TAB PO SCH (05:46)
[2017-01-10] MEDS: Acetaminophen TAB* 325 MG PO PRN (05:46)
[2017-01-10] MEDS: Heparin VIAL(*) 5000 UNITS/ML VIAL (FIVE THOUSAND) SUBCUT SCH ×3 (05:47→22:50)
[2017-01-10 06:39] LABS: Hematocrit 27 % (35-47); Hemoglobin 8.9 g/dl (12.0-16.0); Mean Corpuscular HGB Conc 33 g/dl (31-36); Mean Corpuscular Hemoglobin 32 pg (27-31); Mean Corpuscular Volume 97 fL (80-97); Mean Platelet Volume 8 um3 (7.4-10.4); Red Cell Distribution Width 16 % (10.5-15); White Blood Count 7.4 10^3/ul (3.5-10.8)
[2017-01-10 06:59] LABS: Calcium 8.2 mg/dL (8.6-10.3); EGFR African American 15.3 (>60); EGFR Non-African American 11.9 (>60); Potassium 4.2 mmol/L (3.5-5.0)
[2017-01-10] MEDS: Metoprolol Succinate XL TAB* 100 MG PO SCH (08:36)
[2017-01-10] MEDS: CMCS - Pantoprazole TAB (NF) 40 MG TAB PO SCH (08:36)
[2017-01-10] MEDS: Sodium Bicarbonate (ANTACID)* 650 MG TAB PO SCH ×2 (08:36→20:40)
[2017-01-10] MEDS: CMCS: Rosuvastatin (NF) 5 MG TAB PO SCH (08:36)
[2017-01-10] MEDS: Multivitamins/Minerals TAB PO SCH (08:36)
[2017-01-10] MEDS: Clopidogrel TAB* 75 MG PO SCH (08:36)
[2017-01-10] MEDS: Citalopram TAB* 20 MG PO SCH (08:36)
[2017-01-10] MEDS: Folic Acid TAB* 1 MG PO SCH (08:36)
[2017-01-10] MEDS: Simethicone TAB* 80 MG TAB.CHEW PO SCH ×3 (08:37→16:46)
[2017-01-10] MEDS: amLODIPine TAB* 5 MG PO SCH (08:37)
[2017-01-10] MEDS: Aspirin EC Low Dose* 81 MG TAB.EC PO SCH (08:37)
--- NOTE | 2017-01-10 11:15 | PN ---
Subjective Date of Service: 01/10/17 Interval History: Patient seen and examined at bedside. Denies fever, chills, shortness of breath , chest discomfort, N/V/D. Pt states that she feels tired. Tele: Sinus rhytm, rate 60-70's Family History: Unchanged from Admission Social History: Unchanged from Admission Past Medical History: Unchanged from Admission Objective Active Medications: Acetaminophen (Tylenol Tab*) 650 mg PO Q4H PRN Reason: PAIN Amlodipine Besylate (Norvasc Tab*) 10 mg PO DAILY [facility] Aspirin (Aspirin Ec Low Dose*) 81 mg PO DAILY [facility] Calcium Carbonate (Tums*) 500 mg PO Q4H PRN Reason: INDIGESTION Citalopram Hydrobromide (Celexa Tab*) 20 mg PO DAILY [facility] Clopidogrel Bisulfate (Plavix Tab*) 75 mg PO DAILY [facility] Folic Acid (Folvite Tab*) 1 mg PO DAILY [facility] Heparin Sodium (Porcine) (Heparin Vial(*)) 5,000 units SUBCUT Q8HR [facility] Hydralazine HCl (Apresoline Iv*) 10 mg IV SLOW PU Q4H PRN Reason: SYSTOLIC BP GREATER THAN: Cefepime HCl 0.5 gm/ Sodium (Chloride) 50 mls @ 100 mls/hr IVPB 2000 [facility] Levothyroxine Sodium (Synthroid Tab*) 88 mcg PO DAILY@0600 [facility] Metoprolol Succinate (Toprol Xl Tab*) 100 mg PO DAILY [facility] Metoprolol Succinate (Toprol Xl Tab*) 50 mg PO BEDTIME [facility] Morphine Sulfate (Morphine Inj (Syringe)*) 2 mg IV Q2H PRN Reason: PAIN Multivitamins/Minerals (Theragran/Minerals Tab*) 1 tab PO DAILY [facility] Ondansetron HCl (Zofran Inj*) 4 mg IV Q4H PRN Reason: NAUSEA/VOMITING Pantoprazole Sodium (Protonix Tab (Nf)) 40 mg PO DAILY [facility] Pharmacy Consult (Vancomycin - Dialysis Dosing*) 1 note FOLLOW UP .VANCO LEVEL [facility] Ropinirole HCl (Requip Tab*) 0.25 mg PO BEDTIME [facility] Rosuvastatin Calcium (Crestor (Nf)) 5 mg PO DAILY [facility] Simethicone (Mylicon Tab*) 80 mg PO AC [facility] Sodium Bicarbonate (Sodium Bicarbonate (Antacid)*) 650 mg PO BID [facility] Vital Signs 10/01/09/17 01/09/17 15:58 16:01 19:26 Temperature 97.8 F 98.9 F Pulse Rate 62 78 66 Respiratory 16 18 Rate Blood Pressure 150/69 141/51 (mmHg) O2 Sat by Pulse 97 97 95 Oximetry 01/09/17 01/09/17 01/10/17 19:55 23:45 08:00 Temperature 97.8 F Pulse Rate 73 Respiratory 18 16 18 Rate Blood Pressure 139/53 (mmHg) O2 Sat by Pulse 97 Oximetry 01/10/17 08:02 Temperature 99.1 F Pulse Rate 71 Respiratory 16 Rate Blood Pressure 147/56 (mmHg) O2 Sat by Pulse 93 Oximetry Oxygen Devices in Use Now: Nasal Cannula Appearance: NAD, laying in bed Ears/Nose/Mouth/Throat: Mucous Membranes Moist Respiratory: Symmetrical Chest Expansion and Respiratory Effort, Clear to Auscultation Cardiovascular: NL Sounds; No Murmurs; No JVD, RRR Abdominal: NL Sounds; No Tenderness; No Distention Extremities: No Edema Skin: No Rash or Ulcers Neurological: - - Alert and Oriented to Person and place, confused Lines/Tubes/Other Access: Clean, Dry and Intact Peripheral IV - site benign Result Diagrams: 01/10/17 05:37 01/10/17 05:46 Microbiology and Other Data: Microbiology 01/07/17 11:57 Urine Culture - Final Urine 01/05/17 06:55 Nasal Screen MRSA (PCR)(HEIDI) - Final Nasal Mrsa Negative Assess/Plan/Problems-Billing Assessment: Ms. Matias is an 86 yo female with ESRD on HD, CHF, HTN, DM and CAD transferred from [facility] initially requiring ICU treatment for acute respiratory failure and severe sepsis secondary to HCAP with NSTEMI. - Patient Problems (1) Severe sepsis Code(s): A41.9 - SEPSIS, UNSPECIFIED ORGANISM; R65.20 - SEVERE SEPSIS WITHOUT SEPTIC SHOCK SNOMED Code(s): 12277429 Comment: - Secondary to PNA - Resolved (2) Acute respiratory failure Code(s): J96.00 - ACUTE RESPIRATORY FAILURE, UNSP W HYPOXIA OR HYPERCAPNIA SNOMED Code(s): 84332888 Comment: - Acute hypoxic respiratory failure - Improving - Continues to require supplemental oxygen - Secondary to PNA (3) HCAP (healthcare-associated pneumonia) Code(s): J18.9 - PNEUMONIA, UNSPECIFIED ORGANISM SNOMED Code(s): 677028426 Comment: - Improving respiratory status, stable on NC - Continue Cefepime/Vanco (4) NSTEMI (non-ST elevated myocardial infarction) Code(s): I21.4 - NON-ST ELEVATION (NSTEMI) MYOCARDIAL INFARCTION SNOMED Code(s ): 303298153 Comment: - May represent old infarct, patient gives a h/o severe CP several days prior to admission - Stress test - demonstrates moderate to large infarct with a small amount of sushma-infarct ischemia, cardiology recommends continuing medical management - Continue ASA, Plavix, BB, and statin (5) Acute on chronic systolic heart failure Code(s): I50.23 - ACUTE ON CHRONIC SYSTOLIC (CONGESTIVE) HEART FAILURE SNOMED Code(s): 560716189 Comment: - Improved - Now appears euvolemic - EF 35-40% - Daily weights and stric I+O's (6) V-tach Code(s): I47.2 - VENTRICULAR TACHYCARDIA SNOMED Code(s): 41688625 Comment: - Likely ischemic in origin - No dysrhythmias in ~48 hrs (7) ESRD (end stage renal disease) Code(s): N18.6 - END STAGE RENAL DISEASE SNOMED Code(s): 24766690 Comment: - On HD (8) Diabetes Code(s): E11.9 - TYPE 2 DIABETES MELLITUS WITHOUT COMPLICATIONS SNOMED Code(s) : 91415943 Comment: Unsure of the history on this, no home antihyperglycemic medications noted - Glucose 100-190's - HgbA1c 5.7% - Hyperglycemia may just be a stress response to infection, no chronic treatment necessary and hyperglycemia is mild enough that it does not require insulin correction at this time (9) DVT prophylaxis Code(s): MDF4003 - SNOMED Code(s): 900867297 Comment: - SQ heparin (10) Full code status Code(s): Z78.9 - OTHER SPECIFIED HEALTH STATUS SNOMED Code(s): 722791501 Status and Disposition: Inpatient. Requested PT/OT to start working with her to help with discharge planning. Likely ready for dc in 1-2days, Pt has a bed offer at [facility] as a swing Pt.
[2017-01-10] MEDS ORDERED: Epoetin Alfa* 2,000 UNITS/ML VIAL IV ONE (12:00)
[2017-01-10] MEDS ORDERED: Epoetin Alfa* 3,000 UNITS/ML VIAL IV ONE (12:00)
[2017-01-10] MEDS ORDERED: Vancomycin(*) 750 MG in NS 0.9% 250 ML* 250 ML IVPB ONE (15:00)
[2017-01-10] MEDS: Cefepime(*) 0.5 GM in NS 0.9% 50 ML* 50 ML IVPB SCH (20:32)
[2017-01-10] MEDS: Ropinirole TAB* 0.5 MG TAB PO SCH (20:40)
[2017-01-10] MEDS: Metoprolol Succinate XL TAB* 50 MG PO SCH (20:40)
[2017-01-11 05:44] LABS: Hematocrit 28 % (35-47); Hemoglobin 8.9 g/dl (12.0-16.0); Mean Corpuscular HGB Conc 32 g/dl (31-36); Mean Corpuscular Hemoglobin 31 pg (27-31); Mean Corpuscular Volume 98 fL (80-97); Mean Platelet Volume 8 um3 (7.4-10.4); Red Blood Count 2.85 10^6/ul (4.0-5.4); Red Cell Distribution Width 16 % (10.5-15); White Blood Count 10.2 10^3/ul (3.5-10.8)
[2017-01-11] MEDS: Heparin VIAL(*) 5000 UNITS/ML VIAL (FIVE THOUSAND) SUBCUT SCH ×3 (05:57→21:52)
[2017-01-11 05:58] LABS: BUN/Creatinine Ratio 9.8 (8-20); Calcium 8.3 mg/dL (8.6-10.3); EGFR African American 21.8 (>60); EGFR Non-African American 16.9 (>60); Potassium 4.2 mmol/L (3.5-5.0)
[2017-01-11] MEDS: Levothyroxine TAB* 88 MCG TAB PO SCH (06:00)
[2017-01-11] MEDS: Simethicone TAB* 80 MG TAB.CHEW PO SCH ×3 (07:41→16:56)
[2017-01-11] MEDS: Folic Acid TAB* 1 MG PO SCH (08:37)
[2017-01-11] MEDS: Sodium Bicarbonate (ANTACID)* 650 MG TAB PO SCH ×2 (08:37→21:52)
[2017-01-11] MEDS: CMCS - Pantoprazole TAB (NF) 40 MG TAB PO SCH (08:38)
[2017-01-11] MEDS: Aspirin EC Low Dose* 81 MG TAB.EC PO SCH (08:38)
[2017-01-11] MEDS: Metoprolol Succinate XL TAB* 100 MG PO SCH (08:38)
[2017-01-11] MEDS: CMCS: Rosuvastatin (NF) 5 MG TAB PO SCH (08:39)
[2017-01-11] MEDS: amLODIPine TAB* 5 MG PO SCH (08:39)
[2017-01-11] MEDS: Citalopram TAB* 20 MG PO SCH (08:40)
[2017-01-11] MEDS: Multivitamins/Minerals TAB PO SCH (08:41)
[2017-01-11] MEDS: Clopidogrel TAB* 75 MG PO SCH (08:41)
--- NOTE | 2017-01-11 11:38 | PN ---
Subjective Date of Service: 01/11/17 Interval History: Patient seen and examined at bedside. Denies fever, chills, N/V/D. Pt reports having pain "around my heart" this morning, when asked to point to the pain she points to the epigastric area. Pt also reported to be complaining of shortness of breath during OT eval, oxygen increased to 5L. Pt currently states that her pain is improved and the "chest pain" has resolved. Pt is unable to describe the chest pain. Pt appears to be a poor historian, able to answer orientation questions appropriately. Tele: Sinus rhythm, rate 80's. Family History: Unchanged from Admission Social History: Unchanged from Admission Past Medical History: Unchanged from Admission Objective Active Medications: Acetaminophen (Tylenol Tab*) 650 mg PO Q4H PRN Reason: PAIN Amlodipine Besylate (Norvasc Tab*) 10 mg PO DAILY [facility] Aspirin (Aspirin Ec Low Dose*) 81 mg PO DAILY [facility] Calcium Carbonate (Tums*) 500 mg PO Q4H PRN Reason: INDIGESTION Citalopram Hydrobromide (Celexa Tab*) 20 mg PO DAILY [facility] Clopidogrel Bisulfate (Plavix Tab*) 75 mg PO DAILY [facility] Folic Acid (Folvite Tab*) 1 mg PO DAILY [facility] Heparin Sodium (Porcine) (Heparin Vial(*)) 5,000 units SUBCUT Q8HR [facility] Hydralazine HCl (Apresoline Iv*) 10 mg IV SLOW PU Q4H PRN Reason: SYSTOLIC BP GREATER THAN: 160 Cefepime HCl 0.5 gm/ Sodium (Chloride) 50 mls @ 100 mls/hr IVPB 2000 [facility] Levothyroxine Sodium (Synthroid Tab*) 88 mcg PO DAILY@0600 [facility] Metoprolol Succinate (Toprol Xl Tab*) 100 mg PO DAILY [facility] Metoprolol Succinate (Toprol Xl Tab*) 50 mg PO BEDTIME [facility] Morphine Sulfate (Morphine Inj (Syringe)*) 2 mg IV Q2H PRN Reason: PAIN Multivitamins/Minerals (Theragran/Minerals Tab*) 1 tab PO DAILY [facility] Ondansetron HCl (Zofran Inj*) 4 mg IV Q4H PRN Reason: NAUSEA/VOMITING Pantoprazole Sodium (Protonix Tab (Nf)) 40 mg PO DAILY [facility] Pharmacy Consult (Vancomycin - Dialysis Dosing*) 1 note FOLLOW UP .VANCO LEVEL [facility] Pharmacy Consult (Vancomycin Random Level*) 1 note FOLLOW UP ONCE ONE Stop: 01/12/17 06:01 Ropinirole HCl (Requip Tab*) 0.25 mg PO BEDTIME [facility] Rosuvastatin Calcium (Crestor (Nf)) 5 mg PO DAILY [facility] Simethicone (Mylicon Tab*) 80 mg PO AC [facility] Sodium Bicarbonate (Sodium Bicarbonate (Antacid)*) 650 mg PO BID [facility] Vital Signs 01/10/17 01/10/17 01/10/17 15:47 19:18 20:00 Temperature 98.7 F 97.9 F Pulse Rate 77 70 Respiratory 18 16 16 Rate Blood Pressure 151/57 126/48 (mmHg) O2 Sat by Pulse 96 96 Oximetry 01/11/17 01/11/17 01/11/17 00:13 03:52 07:47 Temperature 98.1 F 98.3 F Pulse Rate 71 70 Respiratory 20 20 18 Rate Blood Pressure 139/54 154/54 (mmHg) O2 Sat by Pulse 97 94 Oximetry 01/11/17 08:14 Temperature 97.6 F Pulse Rate 66 Respiratory 16 Rate Blood Pressure 149/52 (mmHg) O2 Sat by Pulse 98 Oximetry Oxygen Devices in Use Now: Nasal Cannula - 5L Appearance: NAD, laying in bed Ears/Nose/Mouth/Throat: Mucous Membranes Moist Respiratory: Symmetrical Chest Expansion and Respiratory Effort, Clear to Auscultation - , diminished Cardiovascular: NL Sounds; No Murmurs; No JVD, RRR Abdominal: NL Sounds; No Tenderness; No Distention Extremities: No Edema Skin: No Rash or Ulcers Neurological: Alert and Oriented x 3 - , forgetful, NL Muscle Strength and Tone Lines/Tubes/Other Access: Clean, Dry and Intact Peripheral IV - site benign Nutrition: Taking PO's Result Diagrams: 01/11/17 05:19 01/11/17 05:19 Microbiology and Other Data: Microbiology 01/07/17 11:57 Urine Culture - Final Urine 01/05/17 06:55 Nasal Screen MRSA (PCR)(HEIDI) - Final Nasal Mrsa Negative Assess/Plan/Problems-Billing Assessment: Ms. Matias is an 86 yo female with ESRD on HD, CHF, HTN, DM and CAD transferred from [facility] initially requiring ICU treatment for acute respiratory failure and severe sepsis secondary to HCAP with NSTEMI. - Patient Problems (1) Severe sepsis Code(s): A41.9 - SEPSIS, UNSPECIFIED ORGANISM; R65.20 - SEVERE SEPSIS WITHOUT SEPTIC SHOCK SNOMED Code(s): 01918287 Comment: - Secondary to PNA - Resolved (2) Acute respiratory failure Code(s): J96.00 - ACUTE RESPIRATORY FAILURE, UNSP W HYPOXIA OR HYPERCAPNIA SNOMED Code(s): 71835676 Comment: - Acute hypoxic respiratory failure - Improving - Continues to require supplemental oxygen - Secondary to PNA (3) Chest pain Code(s): R07.9 - CHEST PAIN, UNSPECIFIED SNOMED Code(s): 13146640 Comment: - c/o epigastric pain - Suspect indigestion - Will check EKG and troponin (4) HCAP (healthcare-associated pneumonia) Code(s): J18.9 - PNEUMONIA, UNSPECIFIED ORGANISM SNOMED Code(s): 249099947 Comment: - Improving respiratory status, stable on NC - Completed a 7 day course of Cefepime/Vanco (5) NSTEMI (non-ST elevated myocardial infarction) Code(s): I21.4 - NON-ST ELEVATION (NSTEMI) MYOCARDIAL INFARCTION SNOMED Code(s ): 593489849 Comment: - May represent old infarct, patient gives a h/o severe CP several days prior to admission - Stress test - demonstrates moderate to large infarct with a small amount of sushma-infarct ischemia, cardiology recommends continuing medical management - Continue ASA, Plavix, BB, and statin (6) Acute on chronic systolic heart failure Code(s): I50.23 - ACUTE ON CHRONIC SYSTOLIC (CONGESTIVE) HEART FAILURE SNOMED Code(s): 632341398 Comment: - Improved - Now appears euvolemic - EF 35-40% - Daily weights and strict I+O's (7) V-tach Code(s): I47.2 - VENTRICULAR TACHYCARDIA SNOMED Code(s): 09638953 Comment: - Likely ischemic in origin - No dysrhythmias in ~72 hrs (8) ESRD (end stage renal disease) Code(s): N18.6 - END STAGE RENAL DISEASE SNOMED Code(s): 58468055 Comment: - On HD (9) Diabetes Code(s): E11.9 - TYPE 2 DIABETES MELLITUS WITHOUT COMPLICATIONS SNOMED Code(s) : 92110493 Comment: Unsure of the history on this, no home antihyperglycemic medications noted - Glucose 100-140's - HgbA1c 5.7% - Hyperglycemia may just be a stress response to infection, no chronic treatment necessary and hyperglycemia is mild enough that it does not require insulin correction at this time (10) DVT prophylaxis Code(s): FTY0488 - SNOMED Code(s): 140155470 Comment: - SQ heparin (11) Full code status Code(s): Z78.9 - OTHER SPECIFIED HEALTH STATUS SNOMED Code(s): 992184528 Status and Disposition: Inpatient. Requested PT/OT to start working with her to help with discharge planning. Likely ready for dc in the morning, Pt has a bed offer at [facility] as a swing Pt.
[2017-01-11] MEDS: Metoprolol Succinate XL TAB* 50 MG PO SCH (21:51)
[2017-01-11] MEDS: Ropinirole TAB* 0.5 MG TAB PO SCH (21:52)
[2017-01-12 05:35] LABS: BUN/Creatinine Ratio 9.7 (8-20); Calcium 8.4 mg/dL (8.6-10.3); EGFR African American 15.3 (>60); EGFR Non-African American 11.9 (>60); Potassium 4.7 mmol/L (3.5-5.0)
[2017-01-12] MEDS ORDERED: Vancomycin Random Level* NOTE FOLLOW UP ONE (06:00)
[2017-01-12] MEDS: Levothyroxine TAB* 88 MCG TAB PO SCH (06:01)
[2017-01-12] MEDS: Heparin VIAL(*) 5000 UNITS/ML VIAL (FIVE THOUSAND) SUBCUT SCH ×3 (06:01→21:36)
[2017-01-12] MEDS: Simethicone TAB* 80 MG TAB.CHEW PO SCH ×3 (08:00→17:20)
[2017-01-12] MEDS: Sodium Bicarbonate (ANTACID)* 650 MG TAB PO SCH ×2 (08:00→21:33)
[2017-01-12] MEDS ORDERED: Polyethylene Glycol 3350* 17 GM PACKET PO PRN (08:29)
[2017-01-12] MEDS: Magnesium Hydroxide LIQ* 30 ML UDC PO PRN ×2 (09:04→21:34)
[2017-01-12] MEDS ORDERED: Sodium Phosphate ADULT ENEMA* 118 ml bottle PR PRN (09:52)
[2017-01-12] MEDS ORDERED: Bisacodyl SUPP* 10 MG SUPP PR PRN (09:52)
--- NOTE | 2017-01-12 10:01 | PN ---
Subjective Date of Service: 01/12/17 Interval History: Patient seen and examined at bedside. Pt states that she is unsure of the last time that she moved her bowels. Denies fever, chills, shortness of breath, chest discomfort, D. Pt reports nausea and vomiting. Tele: Sinus rhythm, rate 70-80's. Family History: Unchanged from Admission Social History: Unchanged from Admission Past Medical History: Unchanged from Admission Objective Active Medications: Acetaminophen (Tylenol Tab*) 650 mg PO Q4H PRN Reason: PAIN Amlodipine Besylate (Norvasc Tab*) 10 mg PO DAILY [facility] Aspirin (Aspirin Ec Low Dose*) 81 mg PO DAILY [facility] Bisacodyl (Dulcolax Supp*) 10 mg LA DAILY PRN Reason: CONSTIPATION Calcium Carbonate (Tums*) 500 mg PO Q4H PRN Reason: INDIGESTION Citalopram Hydrobromide (Celexa Tab*) 20 mg PO DAILY [facility] Clopidogrel Bisulfate (Plavix Tab*) 75 mg PO DAILY [facility] Folic Acid (Folvite Tab*) 1 mg PO DAILY [facility] Heparin Sodium (Porcine) (Heparin Vial(*)) 5,000 units SUBCUT Q8HR [facility] Hydralazine HCl (Apresoline Iv*) 10 mg IV SLOW PU Q4H PRN Reason: SYSTOLIC BP GREATER THAN: 160 Levothyroxine Sodium (Synthroid Tab*) 88 mcg PO DAILY@0600 [facility] Magnesium Hydroxide (Milk Of Magnesia Liq*) 30 ml PO Q6H PRN Reason: CONSTIPATION Metoprolol Succinate (Toprol Xl Tab*) 100 mg PO DAILY [facility] Metoprolol Succinate (Toprol Xl Tab*) 50 mg PO BEDTIME [facility] Multivitamins/Minerals (Theragran/Minerals Tab*) 1 tab PO DAILY [facility] Ondansetron HCl (Zofran Inj*) 4 mg IV Q4H PRN Reason: NAUSEA/VOMITING Pantoprazole Sodium (Protonix Tab (Nf)) 40 mg PO DAILY [facility] Polyethylene Glycol/Electrolytes (Miralax*) 17 gm PO DAILY PRN Reason: CONSTIPATION Ropinirole HCl (Requip Tab*) 0.25 mg PO BEDTIME [facility] Rosuvastatin Calcium (Crestor (Nf)) 5 mg PO DAILY [facility] Simethicone (Mylicon Tab*) 80 mg PO AC [facility] Sodium Bicarbonate (Sodium Bicarbonate (Antacid)*) 650 mg PO BID [facility] Sodium Biphosphate/Sodium Phosphate (Fleet Enema*) 1 bottle LA DAILY PRN Reason : CONSTIPATION Vital Signs 01/11/17 01/11/17 01/11/17 11:25 15:27 19:15 Temperature 98.3 F 97.9 F 98.2 F Pulse Rate 66 70 67 Respiratory 20 14 16 Rate Blood Pressure 131/52 142/58 142/53 (mmHg) O2 Sat by Pulse 98 99 100 Oximetry 01/11/17 01/11/17 01/12/17 19:20 23:43 03:42 Temperature 97.6 F 97.3 F Pulse Rate 76 70 Respiratory 16 16 16 Rate Blood Pressure 156/59 151/54 (mmHg) O2 Sat by Pulse 97 96 Oximetry 01/12/17 07:30 Temperature 97.5 F Pulse Rate 68 Respiratory 20 Rate Blood Pressure 145/62 (mmHg) O2 Sat by Pulse 98 Oximetry Oxygen Devices in Use Now: Nasal Cannula - 3L Appearance: NAD, laying in bed Respiratory: Symmetrical Chest Expansion and Respiratory Effort, Clear to Auscultation - , diminished Cardiovascular: NL Sounds; No Murmurs; No JVD, RRR Abdominal: - - Abdomen soft, nontender and slightly distended. Hypoactive bowel sounds. Extremities: No Edema Neurological: Alert and Oriented x 3, NL Muscle Strength and Tone Lines/Tubes/Other Access: Clean, Dry and Intact Peripheral IV - site benign Nutrition: Taking PO's Result Diagrams: 01/11/17 05:19 01/12/17 05:07 Microbiology and Other Data: Microbiology 01/07/17 11:57 Urine Culture - Final Urine 01/05/17 06:55 Nasal Screen MRSA (PCR)(HEIDI) - Final Nasal Mrsa Negative Assess/Plan/Problems-Billing Assessment: Ms. Matias is an 86 yo female with ESRD on HD, CHF, HTN, DM and CAD transferred from [facility] initially requiring ICU treatment for acute respiratory failure and severe sepsis secondary to HCAP with NSTEMI. - Patient Problems (1) Severe sepsis Code(s): A41.9 - SEPSIS, UNSPECIFIED ORGANISM; R65.20 - SEVERE SEPSIS WITHOUT SEPTIC SHOCK SNOMED Code(s): 07818659 Comment: - Secondary to PNA - Resolved (2) Acute respiratory failure Code(s): J96.00 - ACUTE RESPIRATORY FAILURE, UNSP W HYPOXIA OR HYPERCAPNIA SNOMED Code(s): 57887229 Comment: - Acute hypoxic respiratory failure - Improving - Continues to require supplemental oxygen - Secondary to PNA (3) Chest pain Code(s): R07.9 - CHEST PAIN, UNSPECIFIED SNOMED Code(s): 47439320 Comment: - Resolved epigastric pain - Suspect indigestion - EKG without significant changes and troponin continues to trend down (4) Constipation Code(s): K59.00 - CONSTIPATION, UNSPECIFIED SNOMED Code(s): 41671481 Comment: - No BM in 7-10 days - Denies abdominal discomfort. Reports bloating, nausea and emesis this AM - Bowel medications ordered (5) Hyponatremia Code(s): E87.1 - HYPO-OSMOLALITY AND HYPONATREMIA SNOMED Code(s): 92144686 Comment: - NA+ down to 126 this AM from 129 - Suspect she may be fluid overloaded - Will receive dialysis today (6) HCAP (healthcare-associated pneumonia) Code(s): J18.9 - PNEUMONIA, UNSPECIFIED ORGANISM SNOMED Code(s): 277530263 Comment: - Improving respiratory status, stable on NC - Completed a 7 day course of Cefepime/Vanco (7) NSTEMI (non-ST elevated myocardial infarction) Code(s): I21.4 - NON-ST ELEVATION (NSTEMI) MYOCARDIAL INFARCTION SNOMED Code(s ): 380984789 Comment: - May represent old infarct, patient gives a h/o severe CP several days prior to admission - Stress test - demonstrates moderate to large infarct with a small amount of sushma-infarct ischemia, cardiology recommends continuing medical management - Continue ASA, Plavix, BB, and statin (8) Acute on chronic systolic heart failure Code(s): I50.23 - ACUTE ON CHRONIC SYSTOLIC (CONGESTIVE) HEART FAILURE SNOMED Code(s): 926165680 Comment: - Improved - Now appears euvolemic - EF 35-40% - Daily weights and strict I+O's (9) V-tach Code(s): I47.2 - VENTRICULAR TACHYCARDIA SNOMED Code(s): 85348944 Comment: - Likely ischemic in origin - No dysrhythmias in ~72 hrs (10) ESRD (end stage renal disease) Code(s): N18.6 - END STAGE RENAL DISEASE SNOMED Code(s): 30235279 Comment: - On HD (11) Diabetes Code(s): E11.9 - TYPE 2 DIABETES MELLITUS WITHOUT COMPLICATIONS SNOMED Code(s) : 86660269 Comment: Unsure of the history on this, no home antihyperglycemic medications noted - Glucose 100-140's - HgbA1c 5.7% - Hyperglycemia may just be a stress response to infection, no chronic treatment necessary and hyperglycemia is mild enough that it does not require insulin correction at this time (12) DVT prophylaxis Code(s): QVA9070 - SNOMED Code(s): 797573253 Comment: - SQ heparin (13) Full code status Code(s): Z78.9 - OTHER SPECIFIED HEALTH STATUS SNOMED Code(s): 517071709 Status and Disposition: Inpatient. Requested PT/OT to start working with her to help with discharge planning. Pt has a bed offer at [facility] as a swing Pt. Discharge to rehab when medically stable.
[2017-01-12] MEDS: Ondansetron INJ* 2 MG/ML VIAL IV PRN ×2 (10:37→16:01)
[2017-01-12] MEDS ORDERED: Epoetin Alfa* 10,000 UNITS/ML VIAL IV ONE (11:00)
[2017-01-12] MEDS: Folic Acid TAB* 1 MG PO SCH (13:59)
[2017-01-12] MEDS: Aspirin EC Low Dose* 81 MG TAB.EC PO SCH (13:59)
[2017-01-12] MEDS: Metoprolol Succinate XL TAB* 100 MG PO SCH (13:59)
[2017-01-12] MEDS: amLODIPine TAB* 5 MG PO SCH (13:59)
[2017-01-12] MEDS: CMCS - Pantoprazole TAB (NF) 40 MG TAB PO SCH (13:59)
[2017-01-12] MEDS: Multivitamins/Minerals TAB PO SCH (14:00)
[2017-01-12] MEDS: CMCS: Rosuvastatin (NF) 5 MG TAB PO SCH (14:00)
[2017-01-12] MEDS: Clopidogrel TAB* 75 MG PO SCH (14:00)
[2017-01-12] MEDS: Citalopram TAB* 20 MG PO SCH (14:00)
[2017-01-12] MEDS: Ropinirole TAB* 0.5 MG TAB PO SCH (21:33)
[2017-01-12] MEDS: Metoprolol Succinate XL TAB* 50 MG PO SCH (21:34)
[2017-01-13] MEDS: Levothyroxine TAB* 88 MCG TAB PO SCH (06:02)
[2017-01-13] MEDS: Magnesium Hydroxide LIQ* 30 ML UDC PO PRN (06:03)
[2017-01-13] MEDS: Heparin VIAL(*) 5000 UNITS/ML VIAL (FIVE THOUSAND) SUBCUT SCH ×3 (06:04→21:40)
[2017-01-13 07:03] LABS: BUN/Creatinine Ratio 8.9 (8-20); Calcium 8.6 mg/dL (8.6-10.3); EGFR African American 21.5 (>60); EGFR Non-African American 16.7 (>60)
[2017-01-13 07:05] LABS: Potassium 5.3 mmol/L (3.5-5.0)
[2017-01-13] MEDS ORDERED: Sodium Polystyrene ORAL.SOL* 15 GM/60 ML BTL PO ONE (07:41)
[2017-01-13] MEDS: Sodium Bicarbonate (ANTACID)* 650 MG TAB PO SCH ×2 (08:29→21:40)
[2017-01-13] MEDS: Clopidogrel TAB* 75 MG PO SCH (08:29)
[2017-01-13] MEDS: Metoprolol Succinate XL TAB* 100 MG PO SCH (08:29)
[2017-01-13] MEDS: Citalopram TAB* 20 MG PO SCH (08:29)
[2017-01-13] MEDS: Folic Acid TAB* 1 MG PO SCH (08:29)
[2017-01-13] MEDS: Simethicone TAB* 80 MG TAB.CHEW PO SCH ×3 (08:30→17:52)
[2017-01-13] MEDS: Multivitamins/Minerals TAB PO SCH (08:30)
[2017-01-13] MEDS: Aspirin EC Low Dose* 81 MG TAB.EC PO SCH (08:30)
[2017-01-13] MEDS: amLODIPine TAB* 5 MG PO SCH (08:30)
[2017-01-13] MEDS: CMCS: Rosuvastatin (NF) 5 MG TAB PO SCH (08:30)
[2017-01-13] MEDS: CMCS - Pantoprazole TAB (NF) 40 MG TAB PO SCH (08:31)
--- NOTE | 2017-01-13 14:22 | PN ---
Subjective Date of Service: 01/13/17 Interval History: This is an 86 yo female with ESRD on HD, CHF and CAD who initially admitted to ICU with acute respiratory failure and severe sepsis secondary to PNA with a NSTEMI. She has plans for dc to [facility] but this was delayed yesterday due to severe constipation. Patient was successful with a BM earlier today. She was previously feeling nauseated, but that has since resolved. Denies abd pain. No c/o CP or SOB. Objective Active Medications: Acetaminophen (Tylenol Tab*) 650 mg PO Q4H PRN PRN Reason: PAIN Last Admin: 01/10/17 05:46 Dose: 650 mg Amlodipine Besylate (Norvasc Tab*) 10 mg PO DAILY [facility] Last Admin: 01/13/17 08:30 Dose: 10 mg Aspirin (Aspirin Ec Low Dose*) 81 mg PO DAILY [facility] Last Admin: 01/13/17 08:30 Dose: 81 mg Bisacodyl (Dulcolax Supp*) 10 mg WV DAILY PRN PRN Reason: CONSTIPATION Last Admin: 01/13/17 12:02 Dose: 10 mg Calcium Carbonate (Tums*) 500 mg PO Q4H PRN PRN Reason: INDIGESTION Citalopram Hydrobromide (Celexa Tab*) 20 mg PO DAILY [facility] Last Admin: 01/13/17 08:29 Dose: 20 mg Clopidogrel Bisulfate (Plavix Tab*) 75 mg PO DAILY [facility] Last Admin: 01/13/17 08:29 Dose: 75 mg Folic Acid (Folvite Tab*) 1 mg PO DAILY [facility] Last Admin: 01/13/17 08:29 Dose: 1 mg Heparin Sodium (Porcine) (Heparin Vial(*)) 5,000 units SUBCUT Q8HR [facility] Last Admin: 01/13/17 06:04 Dose: 5,000 units Hydralazine HCl (Apresoline Iv*) 10 mg IV SLOW PU Q4H PRN PRN Reason: SYSTOLIC BP GREATER THAN: Last Admin: 01/07/17 09:39 Dose: 10 mg Levothyroxine Sodium (Synthroid Tab*) 88 mcg PO DAILY@0600 [facility] Last Admin: 01/13/17 06:02 Dose: 88 mcg Magnesium Hydroxide (Milk Of Magnesia Liq*) 30 ml PO Q6H PRN PRN Reason: CONSTIPATION Last Admin: 01/13/17 06:03 Dose: 30 ml Metoprolol Succinate (Toprol Xl Tab*) 100 mg PO DAILY [facility] Last Admin: 01/13/17 08:29 Dose: 100 mg Metoprolol Succinate (Toprol Xl Tab*) 50 mg PO BEDTIME [facility] Last Admin: 01/12/17 21:34 Dose: 50 mg Multivitamins/Minerals (Theragran/Minerals Tab*) 1 tab PO DAILY [facility] Last Admin: 01/13/17 08:30 Dose: 1 tab Ondansetron HCl (Zofran Inj*) 4 mg IV Q4H PRN PRN Reason: NAUSEA/VOMITING Last Admin: 01/12/17 16:01 Dose: 4 mg Pantoprazole Sodium (Protonix Tab (Nf)) 40 mg PO DAILY [facility] Last Admin: 01/13/17 08:31 Dose: 40 mg Polyethylene Glycol/Electrolytes (Miralax*) 17 gm PO DAILY PRN PRN Reason: CONSTIPATION Last Admin: 01/12/17 11:58 Dose: 17 gm Ropinirole HCl (Requip Tab*) 0.25 mg PO BEDTIME [facility] Last Admin: 01/12/17 21:33 Dose: 0.25 mg Rosuvastatin Calcium (Crestor (Nf)) 5 mg PO DAILY [facility] PRN Reason: Protocol Last Admin: 01/13/17 08:30 Dose: 5 mg Simethicone (Mylicon Tab*) 80 mg PO AC [facility] Last Admin: 01/13/17 12:02 Dose: 80 mg Sodium Bicarbonate (Sodium Bicarbonate (Antacid)*) 650 mg PO BID [facility] Last Admin: 01/13/17 08:29 Dose: 650 mg Sodium Biphosphate/Sodium Phosphate (Fleet Enema*) 1 bottle WV DAILY PRN PRN Reason: CONSTIPATION Vital Signs: Temp Pulse Resp BP Pulse Ox 98.4 F 61 18 130/44 93 01/13/17 03:31 01/13/17 11:13 01/13/17 11:13 01/13/17 11:13 01/13/17 11:13 Oxygen Devices in Use Now: Nasal Cannula - 3L Appearance: Elderly female who appears lethargic, but is in NAD Respiratory: Symmetrical Chest Expansion and Respiratory Effort, Clear to Auscultation Cardiovascular: RRR, - - murmur appreciated Abdominal: NL Sounds; No Tenderness; No Distention Extremities: No Edema Skin: No Rash or Ulcers Neurological: Alert and Oriented x 3 Result Diagrams: 01/11/17 05:19 01/13/17 06:37 Additional Lab and Data: . Microbiology and Other Data: Microbiology 01/07/17 11:57 Urine Culture - Final Urine 01/05/17 06:55 Nasal Screen MRSA (PCR)(HEIDI) - Final Nasal Mrsa Negative Assess/Plan/Problems-Billing Assessment: Ms. Matias is an 86 yo female with ESRD on HD, CHF, HTN, DM and CAD transferred from [facility] initially requiring ICU treatment for acute respiratory failure and severe sepsis secondary to HCAP with NSTEMI. - Patient Problems (1) Severe sepsis Comment: Secondary to PNA Resolved (2) Acute respiratory failure Comment: Acute hypoxic respiratory failure Improving Continues to require supplemental oxygen Secondary to PNA (3) HCAP (healthcare-associated pneumonia) Comment: Completed a 7 day course of Cefepime/Vanco Still requiring several liters of supp O2 Repeat CXR tomorrow to assess (4) NSTEMI (non-ST elevated myocardial infarction) Comment: May represent subacute infarct, as patient gives a h/o severe CP several days prior to admission Stress test - demonstrates moderate to large infarct with a small amount of sushma -infarct ischemia, cardiology recommends continuing medical management Continue ASA, Plavix, BB, and statin (5) Acute on chronic systolic heart failure Comment: Improved Now appears euvolemic EF 35-40% Daily weights and strict I+O's (6) V-tach Comment: Likely ischemic in origin No dysrhythmias in several days (7) ESRD (end stage renal disease) Comment: On HD, last dialyzed 01/12 (8) Diabetes Comment: Unsure of the history on this, no home antihyperglycemic medications noted Glucose 100-140's HgbA1c 5.7% Hyperglycemia may just be a stress response to infection, no chronic treatment necessary and hyperglycemia is mild enough that it does not require insulin correction at this time (9) Full code status (10) DVT prophylaxis Comment: SQ heparin Status and Disposition: Inpatient. Anticipate dc to [facility] Sunday.
[2017-01-13] MEDS ORDERED: Morphine INJ* 2 MG/ML 1 ML SYRINGE (TWO MG - NEW SYRINGE VERSION) IV ONE (15:50)
[2017-01-13] MEDS: Ropinirole TAB* 0.5 MG TAB PO SCH (21:37)
[2017-01-13] MEDS: Metoprolol Succinate XL TAB* 50 MG PO SCH (21:39)
[2017-01-13] MEDS: Acetaminophen TAB* 325 MG PO PRN (21:40)
[2017-01-14] MEDS: Heparin VIAL(*) 5000 UNITS/ML VIAL (FIVE THOUSAND) SUBCUT SCH ×3 (05:50→21:22)
[2017-01-14] MEDS: Levothyroxine TAB* 88 MCG TAB PO SCH (05:50)
[2017-01-14 07:45] LABS: BUN/Creatinine Ratio 10.8 (8-20); Calcium 8.8 mg/dL (8.6-10.3); EGFR African American 15.7 (>60); EGFR Non-African American 12.2 (>60)
[2017-01-14 07:51] LABS: Potassium 5.8 mmol/L (3.5-5.0)
[2017-01-14] MEDS ORDERED: Sodium Polystyrene ORAL.SOL* 15 GM/60 ML BTL PO ONE (08:12)
--- NOTE | 2017-01-14 10:17 | RAD ---
Indication: Follow-up pneumonia. Persistent hypoxia. Shortness of breath and weakness. Comparison: January 05, 2017 Technique: PA and lateral chest views. Report: Cardiomegaly, prominent ill-defined central pulmonary vasculature and perihilar alveolar opacities as well as prominence of interstitial markings and moderate pleural effusions. Negative for pneumothorax. IMPRESSION: Alveolar and interstitial pulmonary edema with associated pleural effusions. Interval worsening.
[2017-01-14] MEDS: Multivitamins/Minerals TAB PO SCH (10:37)
[2017-01-14] MEDS: CMCS: Rosuvastatin (NF) 5 MG TAB PO SCH (10:37)
[2017-01-14] MEDS: CMCS - Pantoprazole TAB (NF) 40 MG TAB PO SCH (10:38)
[2017-01-14] MEDS: Metoprolol Succinate XL TAB* 100 MG PO SCH (10:38)
[2017-01-14] MEDS: amLODIPine TAB* 5 MG PO SCH (10:39)
[2017-01-14] MEDS: Sodium Bicarbonate (ANTACID)* 650 MG TAB PO SCH ×2 (10:40→21:24)
[2017-01-14] MEDS: Simethicone TAB* 80 MG TAB.CHEW PO SCH ×3 (10:41→16:45)
[2017-01-14] MEDS: Clopidogrel TAB* 75 MG PO SCH (10:42)
[2017-01-14] MEDS: Aspirin EC Low Dose* 81 MG TAB.EC PO SCH (10:42)
[2017-01-14] MEDS: Folic Acid TAB* 1 MG PO SCH (10:42)
[2017-01-14] MEDS: Citalopram TAB* 20 MG PO SCH (10:42)
--- NOTE | 2017-01-14 17:04 | PN ---
Subjective Date of Service: 01/14/17 Interval History: Patient has had frequent soft BMs. She has had some associated rectal pain and feels bloated today. No c/o abd pain, n/v. No SOB or CP. Objective Active Medications: Acetaminophen (Tylenol Tab*) 650 mg PO Q4H PRN PRN Reason: PAIN Last Admin: 01/13/17 21:40 Dose: 650 mg Amlodipine Besylate (Norvasc Tab*) 10 mg PO DAILY [facility] Last Admin: 01/14/17 10:39 Dose: 10 mg Aspirin (Aspirin Ec Low Dose*) 81 mg PO DAILY [facility] Last Admin: 01/14/17 10:42 Dose: 81 mg Bisacodyl (Dulcolax Supp*) 10 mg WV DAILY PRN PRN Reason: CONSTIPATION Last Admin: 01/13/17 12:02 Dose: 10 mg Calcium Carbonate (Tums*) 500 mg PO Q4H PRN PRN Reason: INDIGESTION Citalopram Hydrobromide (Celexa Tab*) 20 mg PO DAILY [facility] Last Admin: 01/14/17 10:42 Dose: 20 mg Clopidogrel Bisulfate (Plavix Tab*) 75 mg PO DAILY [facility] Last Admin: 01/14/17 10:42 Dose: 75 mg Folic Acid (Folvite Tab*) 1 mg PO DAILY [facility] Last Admin: 01/14/17 10:42 Dose: 1 mg Heparin Sodium (Porcine) (Heparin Vial(*)) 5,000 units SUBCUT Q8HR [facility] Last Admin: 01/14/17 16:45 Dose: 5,000 units Hydralazine HCl (Apresoline Iv*) 10 mg IV SLOW PU Q4H PRN PRN Reason: SYSTOLIC BP GREATER THAN: Last Admin: 01/07/17 09:39 Dose: 10 mg Levothyroxine Sodium (Synthroid Tab*) 88 mcg PO DAILY@0600 [facility] Last Admin: 01/14/17 05:50 Dose: 88 mcg Magnesium Hydroxide (Milk Of Magnesia Liq*) 30 ml PO Q6H PRN PRN Reason: CONSTIPATION Last Admin: 01/13/17 06:03 Dose: 30 ml Metoprolol Succinate (Toprol Xl Tab*) 100 mg PO DAILY [facility] Last Admin: 01/14/17 10:38 Dose: 100 mg Metoprolol Succinate (Toprol Xl Tab*) 50 mg PO BEDTIME [facility] Last Admin: 01/13/17 21:39 Dose: 50 mg Multivitamins/Minerals (Theragran/Minerals Tab*) 1 tab PO DAILY [facility] Last Admin: 01/14/17 10:37 Dose: 1 tab Ondansetron HCl (Zofran Inj*) 4 mg IV Q4H PRN PRN Reason: NAUSEA/VOMITING Last Admin: 01/12/17 16:01 Dose: 4 mg Pantoprazole Sodium (Protonix Tab (Nf)) 40 mg PO DAILY [facility] Last Admin: 01/14/17 10:38 Dose: 40 mg Polyethylene Glycol/Electrolytes (Miralax*) 17 gm PO DAILY PRN PRN Reason: CONSTIPATION Last Admin: 01/12/17 11:58 Dose: 17 gm Ropinirole HCl (Requip Tab*) 0.25 mg PO BEDTIME [facility] Last Admin: 01/13/17 21:37 Dose: 0.25 mg Rosuvastatin Calcium (Crestor (Nf)) 5 mg PO DAILY [facility] PRN Reason: Protocol Last Admin: 01/14/17 10:37 Dose: 5 mg Simethicone (Mylicon Tab*) 80 mg PO AC [facility] Last Admin: 01/14/17 16:45 Dose: 80 mg Sodium Bicarbonate (Sodium Bicarbonate (Antacid)*) 650 mg PO BID [facility] Last Admin: 01/14/17 10:40 Dose: 650 mg Sodium Biphosphate/Sodium Phosphate (Fleet Enema*) 1 bottle WV DAILY PRN PRN Reason: CONSTIPATION Vital Signs: Temp Pulse Resp BP Pulse Ox 97.6 F 73 18 148/47 95 01/14/17 08:09 01/14/17 08:09 01/14/17 08:09 01/14/17 08:09 01/14/17 08:09 Oxygen Devices in Use Now: Nasal Cannula Appearance: Elderly female in NAD, appears fatigued Respiratory: Symmetrical Chest Expansion and Respiratory Effort, - - reduced breath sounds at bases bilaterally Cardiovascular: RRR, - - murmur Abdominal: NL Sounds; No Tenderness; No Distention Extremities: No Edema Skin: No Rash or Ulcers Neurological: Alert and Oriented x 3 Result Diagrams: 01/11/17 05:19 01/14/17 06:57 Additional Lab and Data: . Microbiology and Other Data: Microbiology 01/07/17 11:57 Urine Culture - Final Urine 01/05/17 06:55 Nasal Screen MRSA (PCR)(HEIDI) - Final Nasal Mrsa Negative Diagnostic Imaging: CXR 01/14 - moderate sized bilateral pleural effusions Assess/Plan/Problems-Billing Assessment: Ms. Matias is an 86 yo female with ESRD on HD, CHF, HTN, DM and CAD transferred from [facility] initially requiring ICU treatment for acute respiratory failure and severe sepsis secondary to HCAP with NSTEMI. - Patient Problems (1) Severe sepsis Comment: Secondary to PNA Resolved (2) Acute respiratory failure Comment: Acute hypoxic respiratory failure Improving Continues to require supplemental oxygen Secondary to PNA (3) Pleural effusion Comment: CXR today demonstrates bilateral moderate sized pleural effusions Patient is requiring up to 5L of supp O2 but denies any acute complaints of dyspnea or cough Recommend a greater volume of fluid taken off with dialysis tomorrow for treatment of effusion She urinates infrequently (less than once daily), she will not reliably diuress with loop diuretics (4) HCAP (healthcare-associated pneumonia) Comment: Completed a 7 day course of Cefepime/Vanco Still requiring several liters of supp O2, which appears to be mostly likely due to pleural effusions rather than persistent infiltrate (5) NSTEMI (non-ST elevated myocardial infarction) Comment: May represent subacute infarct, as patient gives a h/o severe CP several days prior to admission Stress test - demonstrates moderate to large infarct with a small amount of sushma -infarct ischemia, cardiology recommends continuing medical management Continue ASA, Plavix, BB, and statin (6) Acute on chronic systolic heart failure Comment: Improved Now appears euvolemic EF 35-40% Daily weights and strict I+O's (7) V-tach Comment: Likely ischemic in origin No dysrhythmias in several days (8) ESRD (end stage renal disease) Comment: On HD, last dialyzed 01/12 (9) Diabetes Comment: Unsure of the history on this, no home antihyperglycemic medications noted Glucose 100-140's HgbA1c 5.7% Hyperglycemia may just be a stress response to infection, no chronic treatment necessary and hyperglycemia is mild enough that it does not require insulin correction at this time (10) Full code status (11) DVT prophylaxis Comment: SQ heparin Status and Disposition: Inpatient. Anticipate dc to [facility] Sunday. Patient should be dialyzed prior to transfer.
[2017-01-14] MEDS: Acetaminophen TAB* 325 MG PO PRN (18:09)
[2017-01-14] MEDS: Ropinirole TAB* 0.5 MG TAB PO SCH (21:22)
[2017-01-14] MEDS: Metoprolol Succinate XL TAB* 50 MG PO SCH (21:24)
[2017-01-15] MEDS: Ondansetron INJ* 2 MG/ML VIAL IV PRN (00:26)
[2017-01-15 00:59] LABS: FIO2 100
[2017-01-15 01:04] LABS: PCO2 Arterial 48 mmHg (35-45)
[2017-01-15] MEDS: Acetaminophen TAB* 325 MG PO PRN (01:33)
--- NOTE | 2017-01-15 03:24 | DS ---
CC: Dr. Christa Roberts* DISCHARGE SUMMARY: DATE OF ADMISSION: 01/05/17 DATE OF DISCHARGE: 01/14/17 PRIMARY CARE PROVIDER: Dr. Christa Roberts. CONSULTING EXTRACTING MACHINE OPERATOR: Dr. Patricio Vo. DISCHARGING PROVIDER: CASSIDY Burks SUPERVISING PHYSICIAN: Dr. Kaylin Mcleod* (dictated by CASSIDY Burks). PRIMARY DISCHARGE DIAGNOSES: 1. Severe sepsis secondary to pneumonia. 2. Acute respiratory failure secondary to pneumonia. 3. Bilateral pleural effusions secondary to renal failure and heart failure and recent pneumonia. 4. Healthcare-associated pneumonia - completed a 7-day course of cefepime and vancomycin. 5. Non-ST elevation myocardial infarction without acute intervention. Recommend continued medical management. 6. Qlibz-gv-gbvvcto systolic heart failure with an EF of 35% to 40%. 7. Ventricular tachycardia in the setting of acute ischemia and sepsis. SECONDARY DISCHARGE DIAGNOSES: 1. End-stage renal disease, on hemodialysis. 2. Hyperglycemia - hemoglobin A1c of 5.7% - hyperglycemia observed during her hospital stay, likely a function of her acute illness. DISCHARGE MEDICATIONS: 1. Aspirin 81 mg p.o. daily. 2. Vitamin D 1000 units p.o. daily. 3. Plavix 75 mg p.o. daily. 4. Lexapro 10 mg p.o. daily. 5. Felodipine 10 mg p.o. daily. 6. Folic acid 1 mg p.o. daily. 7. Hyoscyamine sulfate oral absorbable tablet 0.125 mg sublingual daily. 8. Multivitamin 1 tablet p.o. daily. 9. Ropinirole 0.25 mg p.o. at bedtime. 10. Crestor 5 mg p.o. daily. 11. Sodium bicarb 650 mg p.o. twice daily. 12. Hydralazine 100 mg p.o. 3 times daily. 13. Levothyroxine 88 mcg p.o. daily. 14. Metoprolol succinate 100 mg in the morning and 50 mg at bedtime. Medication changes: 1. Increase metoprolol succinate. 2. Start Crestor. 3. Start aspirin. 4. Start Plavix. HOSPITAL IMAGIN. Chest x-ray, 01/05/17, shows cardiomegaly with pulmonary interstitial edema and patchy bibasilar atelectasis versus consolidation with patchy airspace disease of the left upper lung. 2. Nuclear stress test shows a lbztqadd-wj-qsnmi infarct with mild sushma- infarct ischemia with an decreased EF to 38%. 3. Chest x-ray, 01/14/17, shows alveolar and interstitial pulmonary edema with associated effusions. 4. Transthoracic echocardiogram shows a mild left ventricular hypertrophy with an EF of 35% to 40% with anteroseptal and apical wall hypokinesis, both atria are dilated with moderate aortic stenosis, trace aortic regurg, mild mitral regurg, and moderate pulmonary hypertension. HOSPITAL COURSE: This is an 86-year-old female with a history of end-stage renal disease, on hemodialysis as well as hypertension, hyperlipidemia, history of coronary artery disease, who presented to [facility] with complaints of weakness as well as nausea, vomiting, and chest pain. She was subsequently transferred to our hospital with concerns for a possible ST elevation NV and signs of acute heart failure. Re-evaluation, when she reached our hospital was not consistent with an ST elevation NV, but initial troponin was significantly elevated at 3.31. The patient was treated for a non-ST elevation NV. Initial labs showed a moderate leukocytosis with a white blood cell count of 13,900. Chemistry showed hyperkalemia with a potassium of 6.1, BUN of 79, creatinine 5.6 consistent with her end-stage renal disease and as mentioned above, her initial troponin was 3.31. BNP was significantly elevated at 4,900. The patient was subsequently admitted to the ICU for further treatment. She developed acute respiratory failure requiring 10 L of oxygen. She was empirically covered for healthcare- associated pneumonia with vanco and cefepime based on possible infiltrates appreciated on chest x-ray. She had clinical evidence of acute heart failure, which was managed with dialysis. Cardiology was consulted regarding her non-ST elevation NV. Due to the severity of her acute illness, immediate intervention was not recommended and the patient was managed medically on a heparin drip with initiation of aspirin, Plavix, statin, and beta-deonna. The patient's oxygen needs improved and her leukocytosis resolved. She was subsequently afebrile and then transferred to the medical floor. She completed a total of 7 days of cefepime and vancomycin for her pneumonia. After the acute phase of her illness resolved, she underwent nuclear stress testing, which demonstrated a nkqlfylx-[id number]-owfgc infarct with a small amount of sushma- infarct ischemia. Due to the appearance on nuclear stress testing, continued medical management was recommended over cardiac catheterization as there seemed to be only a small area of ischemia and most of it was infarct. After further discussion, the patient also provided the history that she had acute severe chest pain several days prior to her hospital admission and it may be that her NV was subclinical versus a result of significant demand as a result of her sepsis. The patient is significantly weak based on her acute illness. She is still requiring several liters of oxygen. Repeat chest x-ray was obtained, which shows moderate-sized bilateral pleural effusions, which is likely a result of her heart failure and renal dysfunction. We will request a larger volume status removed via hemodialysis prior to discharge. The patient is otherwise stable for transfer to initiate physical rehab. DISPOSITION AND FOLLOWUP PLAN: The patient is being discharged to [facility] for a physical rehab. She is requiring 5 L of supplemental O2 at the time of transfer. Recommend repeat chest x-ray in approximately 1 week following hemodialysis. She requires followup with Cardiology in approximately 1 month, which can be done with Dr. Vo at the [facility]. ACSSIDY BURKS [id number]/[facility] #: [id number] ALEJANDRO
[2017-01-15] MEDS: Heparin VIAL(*) 5000 UNITS/ML VIAL (FIVE THOUSAND) SUBCUT SCH (05:49)
[2017-01-15] MEDS: Levothyroxine TAB* 88 MCG TAB PO SCH (05:49)
[2017-01-15 07:50] VITALS: BP 156/60
--- NOTE | 2017-01-15 07:54 | RAD ---
HISTORY: Shortness of breath COMPARISONS: January 14, 2017 VIEWS: 1: frontal portable view of the chest at 12:39 AM FINDINGS: LINES AND TUBES: None. CARDIOMEDIASTINAL SILHOUETTE: The cardiac silhouette is enlarged. The cardiomediastinal silhouette is otherwise normal for portable technique. PLEURA: There are small bilateral pleural effusions. LUNG PARENCHYMA: There is an extensive diffuse reticular pattern with indistinct pulmonary vessels. There is confluent alveolar opacification of the lung bases bilaterally. ABDOMEN: The upper abdomen is clear. There is no subphrenic gas. BONES AND SOFT TISSUES: There is diffuse osteopenia. Degenerative changes are noted. IMPRESSION: CARDIOMEGALY WITH EXTENSIVE PULMONARY INTERSTITIAL EDEMA, SMALL BILATERAL PLEURAL EFFUSIONS, RIGHT BASILAR ATELECTASIS VERSUS CONSOLIDATION
[2017-01-15] MEDS ORDERED: Epoetin Alfa* 10,000 UNITS/ML VIAL IV ONE (12:00)
[2017-01-15] MEDS ORDERED: Metoprolol Succinate XL TAB* 50 MG PO SCH (13:41)
[2017-01-15] MEDS: CMCS: Rosuvastatin (NF) 5 MG TAB PO SCH (13:55)
[2017-01-15] MEDS: Sodium Bicarbonate (ANTACID)* 650 MG TAB PO SCH (13:56)
[2017-01-15] MEDS: Multivitamins/Minerals TAB PO SCH (13:56)
[2017-01-15] MEDS: amLODIPine TAB* 5 MG PO SCH (13:56)
[2017-01-15] MEDS: Citalopram TAB* 20 MG PO SCH (13:57)
[2017-01-15] MEDS: Aspirin EC Low Dose* 81 MG TAB.EC PO SCH (13:57)
[2017-01-15] MEDS: Folic Acid TAB* 1 MG PO SCH (13:58)
[2017-01-15] MEDS: Simethicone TAB* 80 MG TAB.CHEW PO SCH ×2 (13:58→14:07)
[2017-01-15] MEDS: Clopidogrel TAB* 75 MG PO SCH (13:58)
[2017-01-15] MEDS: CMCS - Pantoprazole TAB (NF) 40 MG TAB PO SCH (14:07)
[2017-01-15] MEDS: Metoprolol Succinate XL TAB* 100 MG PO SCH (14:19)
== END 2017-01-15 04:20 | disposition swing bed (61) | DRG 871 ==
LOC: ED 03:24 → ICU 05:11 → MEDTELE 01-07 11:27 → MED 01-12 16:16
PROVIDERS: ADMIT Hospitalist; ATTEND Internal Medicine
PROC: 5A1D70Z Performance of Urinary Filtration, Intermittent, Less than 6 Hours Per Day (ICD-10-PCS; principal; 2017-01-05)
PROC: 5A1D70Z Performance of Urinary Filtration, Intermittent, Less than 6 Hours Per Day (ICD-10-PCS; 2017-01-09)
PROC: 5A1D70Z Performance of Urinary Filtration, Intermittent, Less than 6 Hours Per Day (ICD-10-PCS; 2017-01-10)
PROC: 5A1D70Z Performance of Urinary Filtration, Intermittent, Less than 6 Hours Per Day (ICD-10-PCS; 2017-01-12)
PROC: 5A1D70Z Performance of Urinary Filtration, Intermittent, Less than 6 Hours Per Day (ICD-10-PCS; 2017-01-15)
DX: A41.9 Sepsis, unspecified organism (principal); N18.6 End stage renal disease; I21.4 Non-ST elevation (NSTEMI) myocardial infarction; J96.01 Acute respiratory failure with hypoxia; I47.2 Ventricular tachycardia; I13.2 Hypertensive heart and chronic kidney disease with heart failure and with stage 5 chronic kidney disease, or end stage renal disease; J18.9 Pneumonia, unspecified organism; I27.20 Pulmonary hypertension, unspecified; I50.23 Acute on chronic systolic (congestive) heart failure; I42.9 Cardiomyopathy, unspecified; E87.1 Hypo-osmolality and hyponatremia; J98.11 Atelectasis; R65.20 Severe sepsis without septic shock; E87.5 Hyperkalemia; E03.9 Hypothyroidism, unspecified; I25.10 Atherosclerotic heart disease of native coronary artery without angina pectoris; K21.9 Gastro-esophageal reflux disease without esophagitis; E78.5 Hyperlipidemia, unspecified; H35.30 Unspecified macular degeneration; Z96.642 Presence of left artificial hip joint; R74.8 Abnormal levels of other serum enzymes; K59.00 Constipation, unspecified; E87.70 Fluid overload, unspecified; Z99.2 Dependence on renal dialysis; Z90.49 Acquired absence of other specified parts of digestive tract; Z90.710 Acquired absence of both cervix and uterus; Z95.5 Presence of coronary angioplasty implant and graft; Z88.8 Allergy status to other drugs, medicaments and biological substances; Z82.3 Family history of stroke; Z87.891 Personal history of nicotine dependence; Z91.041 Radiographic dye allergy status; Z66 Do not resuscitate; I08.0 Rheumatic disorders of both mitral and aortic valves; R41.0 Disorientation, unspecified; Z90.721 Acquired absence of ovaries, unilateral; Z98.42 Cataract extraction status, left eye; Z98.41 Cataract extraction status, right eye; R73.9 Hyperglycemia, unspecified; Z79.82 Long term (current) use of aspirin; Z79.02 Long term (current) use of antithrombotics/antiplatelets
CPT/HCPCS: 36415; 36600; 71010; 71020; 78452; 80048; 80053; 80061; 80202; 81003; 81015; 82150; 82550; 82553; 82803; 83036; 83605; 83690; 83735; 83880; 84484; 84520; 85025; 85027; 85730; 87086; 87641; 90935; 93005; 93017; 93306; A9270-GY; A9502; G0257; J0280; J0360; J0610; J0692; J0885; J1644; J2270; J2405; J2785; J3370

== ENCOUNTER 2017-01-17 11:04 | Inpatient (IN) | payer MEDICARE, BC ==
[2017-01-17] MEDS ORDERED: Ondansetron INJ* 2 MG/ML VIAL IV PRN (17:02)
[2017-01-17] MEDS ORDERED: Vancomycin per Pharmacy* NOTE FOLLOW UP PRN (17:36)
--- NOTE | 2017-01-17 17:47 | RAD ---
INDICATION: Short of breath. Hypoxia COMPARISON: January 17, 2017 TECHNIQUE: An AP portable view obtained at 1710 hours is submitted. FINDINGS: Bones/Soft Tissues: There are no acute bony findings. Cardiomediastinal: The heart is mildly prominent. The central pulmonary vessels and interstitium are prominent consistent with interstitial edema. Lungs: There are alveolar changes consistent with alveolar edema. Pleura: There are bilateral pleural effusions. Other: None IMPRESSION: PULMONARY EDEMA WITH MILD WORSENING.
[2017-01-17 17:56] LABS: PCO2 Arterial 49 mmHg (35-45)
[2017-01-17 17:58] LABS: Hematocrit 28 % (35-47); Mean Corpuscular HGB Conc 32 g/dl (31-36); Mean Corpuscular Hemoglobin 31 pg (27-31); Mean Corpuscular Volume 97 fL (80-97); Mean Platelet Volume 7 um3 (7.4-10.4); Red Blood Count 2.92 10^6/ul (4.0-5.4); Red Cell Distribution Width 17 % (10.5-15); White Blood Count 16.5 10^3/ul (3.5-10.8)
[2017-01-17] MEDS ORDERED: Vancomycin(*) 750 MG in NS 0.9% 250 ML* 250 ML IVPB PRN (18:04)
[2017-01-17] MEDS: Cefepime(*) 1 GM in NS 0.9% 50 ML* 50 ML IVPB SCH (18:19)
[2017-01-17 18:21] LABS: Albumin 3.1 g/dL (3.2-5.2); BUN/Creatinine Ratio 11.9 (8-20); EGFR African American 11.5 (>60); EGFR Non-African American 8.9 (>60); Globulin 2.8 g/dL (2-4); Magnesium 3.4 mg/dL (1.9-2.7); Phosphorus 4.6 mg/dL (2.5-5.0); Total Bilirubin 0.4 mg/dL (0.2-1.0); Total Protein 5.9 g/dL (6.4-8.9)
[2017-01-17 18:22] LABS: Potassium 5.5 mmol/L (3.5-5.0)
[2017-01-17] MEDS ORDERED: Vancomycin(*) 750 MG in NS 0.9% 250 ML* 250 ML IVPB ONE (20:00)
[2017-01-17] MEDS: Senna TAB PO SCH (20:28)
[2017-01-17] MEDS: Metoprolol Succinate XL TAB* 50 MG PO SCH (20:28)
[2017-01-17] MEDS: Docusate CAP* 100 MG PO SCH (20:28)
[2017-01-17] MEDS: Ropinirole TAB* 0.5 MG TAB PO SCH (20:29)
[2017-01-17] MEDS: hydrALAZINE TAB* 100 MG ** ONE HUNDRED PO SCH (20:30)
[2017-01-17] MEDS: Acetaminophen TAB* 325 MG PO PRN (20:31)
--- NOTE | 2017-01-17 21:43 | HP ---
CC: Dr. Roberts, Vimal Florian* HISTORY AND PHYSICAL: DATE OF ADMISSION: 01/17/17 PRIMARY CARE PROVIDER: Dr. Roberts from [place]. ATTENDING PHYSICIAN WHILE IN THE HOSPITAL: Peter Lazo MD* (report being dictated by Earl Schwarz NP). CONSULTING TAPE STRINGER: Dr. Johnson. CHIEF COMPLAINT: 1. Hypoxia. 2. Shortness of breath. HISTORY OF PRESENTING ILLNESS: Mrs. aMtias is an 86-year-old female patient, who was recently here from 01/05/17 to 01/14/17. She was here for what appeared to be a healthcare-acquired pneumonia, was treated with 7 days' course of IV antibiotics, also was found to have a NSTEMI, was treated medically for that, had an extensive workup with a stress test and also echo. Ultimately it was felt that she did not require heart catheterization at that point, it was felt that she would benefit from medical therapy only given her medical complexity. She presents today after she was transferred again on the to the swing bed status at [facility] for rehabilitation purposes. Whilst there, she noticed the last couple of days she was again having progressive worsening shortness of breath, not feeling well. To her knowledge, there has been no weight gain. She was weighed here at 53.6 kg, there she was 54.9 kg. She states that she has noticed that she had some chills yesterday and felt warm , but there was no fever documented that she is aware of. She does state that she has been coughing, but has been nonproductive. She says when she lies flat , she is more short of breath. She has not to her knowledge had any worsening edema in her lower extremities and she also does state that she has been having some pain in her rectal area. She does state that she felt nauseated, but denies any abdominal discomfort and denied having any vomiting. She was noted today to be requiring increasing amounts of oxygen, so labs were repeated and it was noted that her white count was 16,000. An x-ray was obtained and there was concern again for possible atelectasis versus bilateral pneumonia, so the patient was transferred from [place] back to [facility] for further evaluation. The patient now is denying having any chest discomfort currently. She did state that she had some yesterday, she does state that she is feeling more short of breath particularly over the last 2 days and there was concern again for her feeling warm a couple of days ago over to [place], but again no reported fevers. She again does carry a significant history for end-stage renal disease, CAD, hypothyroidism, history of a recent NSTEMI which was treated medically, restless legs syndrome, hyperlipidemia, and a history of CHF, her last known EF was right around 35% to 40%. PAST MEDICAL HISTORY: Significant for: 1. End-stage renal disease. 2. CAD. 3. Hypothyroidism. 4. NE. 5. Restless legs syndrome. 6. Hyperlipidemia. 7. CHF, last EF was 35% to 40%. PAST SURGICAL HISTORY: She has had an AV fistula placement. She has had an appendectomy, cholecystectomy, hysterectomy. She has had a carotid artery endarterectomy. She has had left hip replacement and she has had a ganglion cyst removal. She has had AV fistula and she has had a heart catheterization, requiring stents in the past. MEDICATIONS: Her home medications according to the discharge 2 days ago and has not changed according to the patient, include: 1. Plavix 75 mg daily. 2. Vitamin D 1000 units p.o. daily. 3. Aspirin 81 mg daily. 4. Metoprolol XL 50 mg at bedtime, 100 mg in the morning. 5. Synthroid 88 mcg daily. 6. Hyoscyamine 0.125 mg sublingual daily. 7. Folic acid 1 mg daily. 8. Felodipine 10 mg p.o. daily. 9. Lexapro 10 mg p.o. daily. 10. Hydralazine 100 mg p.o. t.i.d. 11. Sodium bicarbonate 650 mg p.o. b.i.d. 12. Crestor 5 mg a day. 13. Requip 0.25 mg at bedtime. 14. Multivitamin 1 tablet daily. ALLERGIES TO MEDICATIONS: Include IODINE, TRAZODONE, ATORVASTATIN, PSYLLIUM and also GLUTEN and PPD. FAMILY HISTORY: Her mother at the age of 90, she says of old age. There was no report of heart attack, strokes, or cancers with her mother, but her father did have a stroke at the age of 46, . SOCIAL HISTORY: She does not smoke, does not drink. Surrogate decision maker is her son. REVIEW OF SYSTEMS: There is no documented fever. She did admit to having feeling hot the other day and could not get warm. No rhinorrhea. No sore throat. No thyroid enlargement. There was chest pressure yesterday, but none now. She did admit to having orthopnea, dyspnea on exertion. There has been no reports of cough. There has been no abdominal pain. There was nausea yesterday, but no vomiting. No dysuria. No frequency. There was no loss of consciousness, no seizures. She does admit to having an ulcer on her sacrum, but no other skin ulcerations. Review of 14 systems was completed, all others negative. PHYSICAL EXAMINATION GENERAL: At this time, Mrs. Matias is an 86-year-old female patient. She is chronically ill appearing. She is sitting in the hospital bed. She does not appear to be in any acute respiratory distress at this point. She is awake and she is alert. VITAL SIGNS: Blood pressure 157/54; respirations 20; O2 sat 98%, she is now on 8 L, she was on 4; and her temperature was 97.6. HEENT: Head: Atraumatic. Eyes: Sclerae are anicteric, not pale. Throat: Oral mucosa does appear to be moist. No oropharyngeal erythema. NECK: Supple. LUNGS: Diminished in the bases. She did have crackles bilaterally. Equal diaphragmatic expansion. HEART: Sounds S1 and S2. She does have a significant murmur in the aortic listening area, systolic, grade 2 to 3. ABDOMEN: Soft, flat, nontender. Bowel sounds present. EXTREMITIES: No peripheral edema. Pulses 2+ throughout. Moving all 4 extremities with 5/5 strength. NEUROLOGIC: The patient is awake. She is alert. She is oriented x3. Her speech is clear. Tongue midline. Service Desk Specialist were equal. No gross focal deficits. SKIN: Intact. DIAGNOSTIC STUDIES/LAB DATA: I have limited labs from [place], which did reveal WBC of 16.5, at discharge her WBC was 10; her hemoglobin was 8.9 at discharge; her hematocrit was 29; her platelet count was noted to be 394,000. Her sodium was 131 today, her potassium is 5.4, bicarb was noted today to be 33 , BUN 53, creatinine of 4.4, glucose of 170, calcium 8.7. She had blood cultures on the , which were reported to have Staph hominis in one culture, which was felt to be a contaminant. She did have a urine culture, which did grew out E. coli greater than 100,000 units on the , which again was pansensitive and she also had a chest x-ray obtained today, impression: Again seen cardiomegaly, bilateral pleural effusions, bibasilar opacities for which atelectasis and pneumonia are both in the differential. Old medical records were reviewed. She had a stress test on the , which showed moderate to large infract with mild sushma-infarct ischemia, decreased LV function, EF of 38%. Echo done on the with her last admission here showed EF of 35% to 40%, left atrium severely dilated, right atrium moderately dilated , trace aortic regurg, moderate aortic stenosis, trace aortic regurg, mild mitral regurg, mild mitral stenosis, mild tricuspid regurg, evidence of moderate pulmonary hypertension, trace pulmonic regurg. Old medical records reviewed. ASSESSMENT AND PLAN: Mrs. Matias is a complex 86-year-old female patient with multiple medical problems, coming in to our hospital today from transfer from [place] for complaints of hypoxia, in addition to this also leukocytosis, concern for recurrent pneumonia. We are asked to evaluate for admission. She will be admitted under inpatient status for: 1. Pneumonia. At this point, she does have a white count of 16,000. I suspect her hypoxia is probably related to recurrence of this given the white count going up. Certainly there could be an element of fluid overload, but with her story of her having worsening chills, warmth, possible fever and now this worsening shortness of breath and the x-rays that do appear to be again concerning for bilateral opacities which could be pneumonia, I do think that we should treat this first. I am going to put her on cefepime and vanco. She may have aspirated again or this may have not been a long enough treatment course for the patient at 7 days, it is part of one possibility, so I am going to put her back on vanco and cefepime. Her oxygen demands, right now she is satting well. She is not tachypneic. She appears to be stable for the floor; however, I am going to repeat her labs. Again if there is concern such as if her troponin is elevated again with this, I would have a low threshold to transfer to intensive care and low threshold for BiPAP usage or Vapotherm; however, she does appear to be maintaining with the current oxygen levels. I am placing her on telemetry as well. We will get blood cultures, lactic acid. I am also going to get procalcitonin, which will help us further differentiate and we will place her on flutter valve, antibiotics. I am not going to give her fluids , as at this point her blood pressure is maintaining. We will hold those should she become hypotensive. 2. End-stage renal disease. I did touch base with Dr. Johnson, again we both felt that the pneumonia was probably a contributing factor to her hypoxia and dialysis. We will plan for tomorrow repeating her lytes. Should any of these be grossly off, I will reconsult with him for more urgent dialysis. 3. Coronary artery disease, not currently having any chest pain, but she did have chest pain 2 days ago, so I am going to repeat the EKG. In addition to this, we will cycle her troponins. If they are elevated again, we may need to consider again putting her back on heparin drip and trending these, but we will monitor. I am going to continue the beta-deonna and the aspirin and Plavix for the time being along with Crestor. 4. Hypothyroidism. Continue her Synthroid. 5. Recent non-ST elevation myocardial infarction. Again, Plavix, aspirin and beta- deonna for now. We will cycle her troponins. 6. Restless legs. Continue her meds as prescribed. 7. Hyperlipidemia. Continue statin therapy. 8. History of congestive heart failure. At this point, again I am going to not hydrate her. We will continue to follow her closely, diurese as needed with dialysis and we will continue to follow. 9. DVT prophylaxis. She is high risk. I will place her on heparin subcu. 10. Fluids, electrolytes, and nutrition. I am going to make her n.p.o. for a swallow evaluation tomorrow as there is one possibility if she may have aspirated, although there has been no reports of choking, but again it is certainly on the differential. 11. Code status. She is full code. TIME SPENT: Time spent on this admission was 60 minutes, greater than half the time was spent [id number] with the patient obtaining my history and physical, other half the time was spent going over the plan of care with the patient and implementing the plan of care. I did discuss the plan of care with my attending, Dr. Lazo; he is in agreement. EARL SCHWARZ NP [id number]/CPS #: [id number] ALEJANDRO
[2017-01-17] MEDS: Heparin VIAL(*) 5000 UNITS/ML VIAL (FIVE THOUSAND) SUBCUT SCH (22:01)
[2017-01-17] MEDS: Sodium Bicarbonate (ANTACID)* 650 MG TAB PO SCH (22:02)
[2017-01-18] MEDS: Levothyroxine TAB* 88 MCG TAB PO SCH (05:43)
[2017-01-18] MEDS: Heparin VIAL(*) 5000 UNITS/ML VIAL (FIVE THOUSAND) SUBCUT SCH ×2 (05:44→17:10)
[2017-01-18] MEDS ORDERED: Vancomycin(*) 750 MG in NS 0.9% 250 ML* 250 ML IVPB PRN (06:00)
[2017-01-18 06:30] LABS: Hematocrit 28 % (35-47); Mean Corpuscular HGB Conc 32 g/dl (31-36); Mean Corpuscular Hemoglobin 31 pg (27-31); Mean Corpuscular Volume 98 fL (80-97); Mean Platelet Volume 7 um3 (7.4-10.4); Red Cell Distribution Width 16 % (10.5-15); White Blood Count 17.3 10^3/ul (3.5-10.8)
[2017-01-18] MEDS: Vancomycin Random Level* NOTE FOLLOW UP SCH (06:30)
[2017-01-18 06:48] LABS: BUN/Creatinine Ratio 12.2 (8-20); EGFR African American 11.2 (>60); EGFR Non-African American 8.7 (>60); Vancomycin Random 19.3 mcg/mL
[2017-01-18 07:04] LABS: Potassium 5.3 mmol/L (3.5-5.0)
--- NOTE | 2017-01-18 08:47 | PN ---
Subjective Date of Service: 01/18/17 Interval History: C/O fatuge, weakness. Denies SOB. Little cough. Objective Active Medications: Acetaminophen (Tylenol Tab*) 650 mg PO Q4H PRN PRN Reason: FEVER/PAIN Last Admin: 01/17/17 20:31 Dose: 650 mg Amlodipine Besylate (Norvasc Tab*) 10 mg PO DAILY [facility] PRN Reason: Protocol Aspirin (Aspirin Ec Low Dose*) 81 mg PO DAILY [facility] Citalopram Hydrobromide (Celexa Tab*) 20 mg PO DAILY [facility] Clopidogrel Bisulfate (Plavix Tab*) 75 mg PO DAILY [facility] Docusate Sodium (Colace Cap*) 100 mg PO BID [facility] Last Admin: 01/17/17 20:28 Dose: 100 mg Folic Acid (Folvite Tab*) 1 mg PO DAILY [facility] Heparin Sodium (Porcine) (Heparin Vial(*)) 5,000 units SUBCUT Q8HR [facility] Last Admin: 01/18/17 05:44 Dose: 5,000 units Hydralazine HCl (Apresoline Tab*) 100 mg PO TID [facility] Last Admin: 01/17/17 20:30 Dose: 100 mg Hyoscyamine (Anaspaz Tab*) 0.125 mg PO DAILY [facility] Cefepime HCl 1 gm/ Sodium (Chloride) 50 mls @ 100 mls/hr IVPB Q24H [facility] Last Admin: 01/17/17 18:19 Dose: 100 mls/hr Vancomycin HCl 750 mg/ Sodium (Chloride) 250 mls @ 166.667 mls/hr IVPB .PER STANDING ORDER PRN PRN Reason: RANDOM LEVEL </= 20 MCG/ML Levothyroxine Sodium (Synthroid Tab*) 88 mcg PO DAILY@0600 [facility] Last Admin: 01/18/17 05:43 Dose: 88 mcg Metoprolol Succinate (Toprol Xl Tab*) 100 mg PO DAILY [facility] Metoprolol Succinate (Toprol Xl Tab*) 50 mg PO BEDTIME [facility] Last Admin: 01/17/17 20:28 Dose: 50 mg Ondansetron HCl (Zofran Inj*) 4 mg IV Q6H PRN PRN Reason: NAUSEA Pharmacy Consult (Vancomycin Random Level*) 1 note FOLLOW UP DAILY@0600 [facility] Last Admin: 01/18/17 06:30 Dose: 1 note Ropinirole HCl (Requip Tab*) 0.25 mg PO BEDTIME [facility] Last Admin: 01/17/17 20:29 Dose: 0.25 mg Rosuvastatin Calcium (Crestor (Nf)) 5 mg PO DAILY [facility] PRN Reason: Protocol Senna (Senokot Tab*) 2 tab PO BEDTIME [facility] Last Admin: 01/17/17 20:28 Dose: 2 tab Sodium Bicarbonate (Sodium Bicarbonate (Antacid)*) 650 mg PO BID [facility] Last Admin: 01/17/17 22:02 Dose: 650 mg Vital Signs 01/17/17 01/17/17 01/17/17 16:01 17:31 18:05 Temperature 97.6 F Pulse Rate 61 67 Respiratory 20 20 20 Rate Blood Pressure 157/54 (mmHg) O2 Sat by Pulse 98 87 Oximetry 01/17/17 01/17/17 01/17/17 18:06 18:07 18:45 Temperature 99.7 F Pulse Rate 66 64 63 Respiratory 24 21 22 Rate Blood Pressure 178/74 178/74 168/68 (mmHg) O2 Sat by Pulse 90 89 91 Oximetry 01/17/17 01/17/17 01/17/17 19:00 19:15 19:36 Temperature Pulse Rate 64 66 63 Respiratory 21 19 21 Rate Blood Pressure 162/64 164/65 169/63 (mmHg) O2 Sat by Pulse 92 92 93 Oximetry 01/17/17 01/17/17 01/17/17 19:45 20:00 20:01 Temperature 97.3 F Pulse Rate 66 65 65 Respiratory 23 23 23 Rate Blood Pressure 163/58 184/77 (mmHg) O2 Sat by Pulse 92 93 93 Oximetry 01/17/17 01/17/17 01/17/17 20:02 20:15 20:30 Temperature Pulse Rate 64 63 63 Respiratory 22 17 16 Rate Blood Pressure 181/76 171/70 169/71 (mmHg) O2 Sat by Pulse 94 95 95 Oximetry 01/17/17 01/17/17 01/17/17 20:45 20:46 21:00 Temperature Pulse Rate 69 64 Respiratory 22 21 17 Rate Blood Pressure 173/77 163/66 (mmHg) O2 Sat by Pulse 93 95 Oximetry 01/17/17 01/17/17 01/17/17 21:01 21:15 21:30 Temperature Pulse Rate 63 64 60 Respiratory 15 18 17 Rate Blood Pressure 148/71 149/61 (mmHg) O2 Sat by Pulse 95 95 95 Oximetry 01/17/17 01/17/17 01/17/17 21:45 22:00 22:01 Temperature Pulse Rate 64 60 60 Respiratory 16 17 21 Rate Blood Pressure 153/64 141/62 (mmHg) O2 Sat by Pulse 95 93 93 Oximetry 01/17/17 01/17/17 01/17/17 22:15 22:30 22:45 Temperature Pulse Rate 60 59 65 Respiratory 16 15 19 Rate Blood Pressure 143/81 152/63 150/66 (mmHg) O2 Sat by Pulse 94 95 94 Oximetry 01/17/17 01/17/17 01/17/17 23:00 23:01 23:15 Temperature Pulse Rate 62 63 60 Respiratory 22 21 18 Rate Blood Pressure 153/60 143/58 (mmHg) O2 Sat by Pulse 93 94 95 Oximetry 01/17/17 01/17/17 01/17/17 23:30 23:45 23:52 Temperature Pulse Rate 62 60 62 Respiratory 16 15 17 Rate Blood Pressure 155/60 145/58 145/58 (mmHg) O2 Sat by Pulse 93 97 94 Oximetry 01/18/17 01/18/17 01/18/17 00:00 00:01 00:15 Temperature Pulse Rate 61 61 61 Respiratory 17 15 16 Rate Blood Pressure 149/62 149/60 (mmHg) O2 Sat by Pulse 96 95 95 Oximetry 01/18/17 01/18/17 01/18/17 00:30 00:45 01:00 Temperature Pulse Rate 70 60 66 Respiratory 21 17 21 Rate Blood Pressure 151/77 141/54 168/62 (mmHg) O2 Sat by Pulse 95 96 92 Oximetry 01/18/17 01/18/17 01/18/17 01:01 01:30 02:00 Temperature Pulse Rate 63 61 61 Respiratory 19 18 15 Rate Blood Pressure 148/60 150/59 (mmHg) O2 Sat by Pulse 93 96 93 Oximetry 01/18/17 01/18/17 01/18/17 02:01 02:30 03:00 Temperature Pulse Rate 60 63 63 Respiratory 15 14 18 Rate Blood Pressure 155/58 156/59 (mmHg) O2 Sat by Pulse 97 96 93 Oximetry 01/18/17 01/18/17 01/18/17 03:01 03:30 04:00 Temperature 98.1 F Pulse Rate 61 63 65 Respiratory 16 17 23 Rate Blood Pressure 149/59 175/74 (mmHg) O2 Sat by Pulse 93 95 97 Oximetry 01/18/17 01/18/17 01/18/17 04:01 04:30 05:00 Temperature Pulse Rate 64 64 63 Respiratory 22 20 19 Rate Blood Pressure 151/65 160/67 (mmHg) O2 Sat by Pulse 97 97 96 Oximetry 01/18/17 01/18/17 01/18/17 05:01 05:30 05:58 Temperature Pulse Rate 63 63 Respiratory 19 18 Rate Blood Pressure 166/67 (mmHg) O2 Sat by Pulse 96 95 97 Oximetry 01/18/17 01/18/17 01/18/17 06:00 06:01 07:29 Temperature 97.8 F Pulse Rate 61 60 Respiratory 24 17 Rate Blood Pressure 160/62 (mmHg) O2 Sat by Pulse 95 96 Oximetry Oxygen Devices in Use Now: Nasal Cannula Appearance: Alert, sitting on the edge of the ICU bed. Looks fatigued and weak , somewhat tachypneic, otherwise comfortable. Eyes: No Scleral Icterus Neck: No Thyroid Enlargement, Masses - 4-5/6 systolic murmur across precordium, - - JVD at 90 degrees. Respiratory: Clear to Auscultation, Clear to Percussion, Clear to Palpation Cardiovascular: RRR, No Edema - 4/6 systolic murmur a Extremities: No Edema, No Clubbing, Cyanosis, - Skin: No Rash or Ulcers, No Nodules or Sclerosis, - Neurological: Alert and Oriented x 3, NL Sensation Result Diagrams: 01/18/17 06:10 01/18/17 06:10 Microbiology and Other Data: Microbiology 01/17/17 01:00 Influenza Types A,B Antigen (HEIDI) - Final Nasal Specimen received for Influenza A/B Molecular testing Assess/Plan/Problems-Billing Assessment: - Patient Problems (1) ESRD (end stage renal disease) Current Visit: No Status: Chronic Code(s): N18.6 - END STAGE RENAL DISEASE SNOMED Code(s): 71182036 Comment: On HD, last dialyzed 01/16 at [place]. Discussed with Dr. Johnson 01/18--pt to have HD with removal of 1 L fluid 01/18. (2) Aortic stenosis Current Visit: Yes Status: Acute Code(s): I35.0 - NONRHEUMATIC AORTIC (VALVE ) STENOSIS SNOMED Code(s): 44408567 Comment: With acute on chronic systolic CHF. Discussed with Dr. Carvajal. May benefit most from HD and antibiotics. (3) PAF (paroxysmal atrial fibrillation) Current Visit: Yes Status: Acute Code(s): I48.0 - PAROXYSMAL ATRIAL FIBRILLATION SNOMED Code(s): 034258846 Comment: Not on anticoagulant. (4) End of life care Current Visit: Yes Status: Acute Code(s): Z51.5 - ENCOUNTER FOR PALLIATIVE CARE SNOMED Code(s): 696861667 Comment: Patient re-affirms that she wants to be a full code but agrees to Palliative care consult.
[2017-01-18] MEDS: amLODIPine TAB* 5 MG PO SCH (09:17)
[2017-01-18] MEDS: Folic Acid TAB* 1 MG PO SCH (09:18)
[2017-01-18] MEDS: Citalopram TAB* 20 MG PO SCH (09:18)
[2017-01-18] MEDS: Clopidogrel TAB* 75 MG PO SCH (09:18)
[2017-01-18] MEDS: Aspirin EC Low Dose* 81 MG TAB.EC PO SCH (09:18)
[2017-01-18] MEDS: Docusate CAP* 100 MG PO SCH ×2 (09:19→20:08)
[2017-01-18] MEDS: hydrALAZINE TAB* 100 MG ** ONE HUNDRED PO SCH ×3 (09:19→20:07)
[2017-01-18] MEDS: Hyoscyamine TAB* 0.125 MG PO SCH (09:19)
[2017-01-18] MEDS: CMCS: Rosuvastatin (NF) 5 MG TAB PO SCH (09:20)
[2017-01-18] MEDS: Sodium Bicarbonate (ANTACID)* 650 MG TAB PO SCH ×2 (09:21→20:07)
[2017-01-18] MEDS: Metoprolol Succinate XL TAB* 100 MG PO SCH (09:25)
[2017-01-18] MEDS ORDERED: Epoetin Alfa* 10,000 UNITS/ML VIAL IV ONE (14:00)
[2017-01-18] MEDS: Cefepime(*) 1 GM in NS 0.9% 50 ML* 50 ML IVPB SCH (18:17)
[2017-01-18] MEDS: Ropinirole TAB* 0.5 MG TAB PO SCH (20:07)
[2017-01-18] MEDS: Senna TAB PO SCH (20:07)
[2017-01-18] MEDS: Metoprolol Succinate XL TAB* 50 MG PO SCH (20:08)
[2017-01-18] MEDS ORDERED: Metoprolol Tartrate IV* 1 MG/ML 5 ML VIAL ONE (20:28)
--- NOTE | 2017-01-18 20:40 | PN ---
Progress Note - Progress Note Date of Service: 01/18/17 Note: Nursing called reporting onset of tachycardia in the 120s with minimal chest discomfort. ECG confirms AFIB. Platelets adequate. Currently on SQ heparin last given ~1800. No contraindications for anticoagulation noted on H&P or daily notes. With recent NSTEMI, tachycardia needs to be rapidly controlled. Had just received a dose of metoprolol PO prior to conversion to AFIB. Will give 2.5mg IV metoprolol to speed efficacy & initiate a no initial bolus heparin GTT. Continue to monitor closely in ICU. Follow up troponin in AM.
[2017-01-18] MEDS ORDERED: Heparin DRIP 25,000 UNITS(*) 25,000 UNITS/500 ML BAG IV SCH (20:45)
[2017-01-18] MEDS ORDERED: Metoprolol Tartrate IV* 1 MG/ML 5 ML VIAL IV ONE (21:00)
[2017-01-18] MEDS ORDERED: Heparin VIAL(*) 5000 UNITS/ML VIAL (FIVE THOUSAND) IV SCH (21:00)
[2017-01-19 05:36] LABS: Hematocrit 31 % (35-47); Mean Corpuscular HGB Conc 32 g/dl (31-36); Mean Corpuscular Hemoglobin 31 pg (27-31); Mean Corpuscular Volume 98 fL (80-97); Mean Platelet Volume 8 um3 (7.4-10.4); Red Blood Count 3.22 10^6/ul (4.0-5.4); Red Cell Distribution Width 17 % (10.5-15); White Blood Count 13.2 10^3/ul (3.5-10.8)
[2017-01-19 05:37] LABS: Add Diff/Slide Review? Slide Review Added; Comments Flag Yes
[2017-01-19] MEDS: Levothyroxine TAB* 88 MCG TAB PO SCH (05:47)
[2017-01-19 05:57] LABS: Troponin I 0.07 ng/mL (<0.04)
[2017-01-19] MEDS: Vancomycin Random Level* NOTE FOLLOW UP SCH (07:19)
[2017-01-19 08:58] LABS: BUN/Creatinine Ratio 9.8 (8-20); Calcium 8.5 mg/dL (8.6-10.3); EGFR African American 17.9 (>60); EGFR Non-African American 13.9 (>60); Potassium 3.9 mmol/L (3.5-5.0)
[2017-01-19] MEDS: CMCS: Rosuvastatin (NF) 5 MG TAB PO SCH (11:50)
[2017-01-19] MEDS: Sodium Bicarbonate (ANTACID)* 650 MG TAB PO SCH ×2 (11:50→20:36)
[2017-01-19] MEDS: Metoprolol Succinate XL TAB* 100 MG PO SCH (11:50)
[2017-01-19] MEDS: Clopidogrel TAB* 75 MG PO SCH (11:50)
[2017-01-19] MEDS: Citalopram TAB* 20 MG PO SCH (11:50)
[2017-01-19] MEDS: Aspirin EC Low Dose* 81 MG TAB.EC PO SCH (11:50)
[2017-01-19] MEDS: Folic Acid TAB* 1 MG PO SCH (11:50)
[2017-01-19] MEDS: amLODIPine TAB* 5 MG PO SCH (11:50)
[2017-01-19] MEDS: Docusate CAP* 100 MG PO SCH ×2 (11:51→20:36)
[2017-01-19] MEDS: hydrALAZINE TAB* 100 MG ** ONE HUNDRED PO SCH (11:52)
[2017-01-19] MEDS: Lisinopril TAB* 5 MG PO SCH (12:01)
[2017-01-19] MEDS: Hyoscyamine TAB* 0.125 MG PO SCH (12:01)
--- NOTE | 2017-01-19 12:06 | PN ---
Subjective Date of Service: 01/19/17 Interval History: Feels a little better today. Dialysis nurse gave patient her breakfast today and noticed patient coughed after that. Objective Active Medications: Acetaminophen (Tylenol Tab*) 650 mg PO Q4H PRN PRN Reason: FEVER/PAIN Last Admin: 01/17/17 20:31 Dose: 650 mg Amlodipine Besylate (Norvasc Tab*) 10 mg PO DAILY [facility] PRN Reason: Protocol Last Admin: 01/19/17 11:50 Dose: 10 mg Aspirin (Aspirin Ec Low Dose*) 81 mg PO DAILY [facility] Last Admin: 01/19/17 11:50 Dose: 81 mg Citalopram Hydrobromide (Celexa Tab*) 20 mg PO DAILY [facility] Last Admin: 01/19/17 11:50 Dose: 20 mg Clopidogrel Bisulfate (Plavix Tab*) 75 mg PO DAILY [facility] Last Admin: 01/19/17 11:50 Dose: 75 mg Docusate Sodium (Colace Cap*) 100 mg PO BID [facility] Last Admin: 01/19/17 11:51 Dose: 100 mg Folic Acid (Folvite Tab*) 1 mg PO DAILY [facility] Last Admin: 01/19/17 11:50 Dose: 1 mg Heparin Sodium (Porcine) (Heparin Vial(*)) 0 units IV .PER PROTOCOL [facility] PRN Reason: Protocol Hyoscyamine (Anaspaz Tab*) 0.125 mg PO DAILY [facility] Last Admin: 01/18/17 09:19 Dose: 0.125 mg Cefepime HCl 1 gm/ Sodium (Chloride) 50 mls @ 100 mls/hr IVPB Q24H [facility] Last Admin: 01/18/17 18:17 Dose: 100 mls/hr Vancomycin HCl 750 mg/ Sodium (Chloride) 250 mls @ 166.667 mls/hr IVPB .PER STANDING ORDER PRN PRN Reason: RANDOM LEVEL </= 20 MCG/ML Last Admin: 01/18/17 19:22 Dose: 166.667 mls/hr Levothyroxine Sodium (Synthroid Tab*) 88 mcg PO DAILY@0600 [facility] Last Admin: 01/19/17 05:47 Dose: 88 mcg Lisinopril (Prinivil Tab*) 2.5 mg PO DAILY [facility] Metoprolol Succinate (Toprol Xl Tab*) 100 mg PO DAILY [facility] Last Admin: 01/19/17 11:50 Dose: 100 mg Metoprolol Succinate (Toprol Xl Tab*) 50 mg PO BEDTIME [facility] Last Admin: 01/18/17 20:08 Dose: 50 mg Ondansetron HCl (Zofran Inj*) 4 mg IV Q6H PRN PRN Reason: NAUSEA Pharmacy Consult (Vancomycin Random Level*) 1 note FOLLOW UP DAILY@0600 [facility] Last Admin: 01/19/17 07:19 Dose: 1 note Ropinirole HCl (Requip Tab*) 0.25 mg PO BEDTIME [facility] Last Admin: 01/18/17 20:07 Dose: 0.25 mg Rosuvastatin Calcium (Crestor (Nf)) 5 mg PO DAILY [facility] PRN Reason: Protocol Last Admin: 01/19/17 11:50 Dose: 5 mg Senna (Senokot Tab*) 2 tab PO BEDTIME [facility] Last Admin: 01/18/17 20:07 Dose: 2 tab Sodium Bicarbonate (Sodium Bicarbonate (Antacid)*) 650 mg PO BID [facility] Last Admin: 01/19/17 11:50 Dose: 650 mg Warfarin Sodium (Coumadin Tab(*)) 2 mg PO DAILY@1700 [facility] PRN Reason: Protocol Vital Signs 01/18/17 01/18/17 01/18/17 12:01 13:00 13:34 Temperature Pulse Rate 60 61 59 Respiratory 16 21 14 Rate Blood Pressure 139/57 (mmHg) O2 Sat by Pulse 95 94 97 Oximetry 01/18/17 01/18/17 01/18/17 13:45 14:00 14:01 Temperature Pulse Rate 60 59 60 Respiratory 15 19 17 Rate Blood Pressure 141/56 134/54 (mmHg) O2 Sat by Pulse 97 97 96 Oximetry 01/18/17 01/18/17 01/18/17 14:15 14:30 14:45 Temperature Pulse Rate 57 58 58 Respiratory 15 14 15 Rate Blood Pressure 127/56 131/65 137/57 (mmHg) O2 Sat by Pulse 98 98 99 Oximetry 01/18/17 01/18/17 01/18/17 15:00 15:15 15:30 Temperature Pulse Rate 61 58 58 Respiratory 17 14 13 Rate Blood Pressure 125/61 132/63 119/55 (mmHg) O2 Sat by Pulse 99 99 99 Oximetry 01/18/17 01/18/17 01/18/17 15:45 16:00 16:01 Temperature Pulse Rate 60 59 59 Respiratory 15 15 15 Rate Blood Pressure 127/56 125/54 (mmHg) O2 Sat by Pulse 99 99 99 Oximetry 01/18/17 01/18/17 01/18/17 16:15 16:30 16:45 Temperature Pulse Rate 59 61 61 Respiratory 15 16 20 Rate Blood Pressure 132/53 136/52 166/65 (mmHg) O2 Sat by Pulse 100 99 98 Oximetry 01/18/17 01/18/17 01/18/17 17:00 17:11 17:16 Temperature 98.6 F Pulse Rate 63 51 Respiratory 18 16 Rate Blood Pressure 155/73 156/57 (mmHg) O2 Sat by Pulse 98 95 Oximetry 01/18/17 01/18/17 01/18/17 17:30 17:45 18:00 Temperature Pulse Rate 56 63 74 Respiratory 20 17 19 Rate Blood Pressure 137/53 124/68 (mmHg) O2 Sat by Pulse 94 99 97 Oximetry 01/18/17 01/18/17 01/18/17 18:01 18:11 18:15 Temperature Pulse Rate 74 Respiratory 18 23 Rate Blood Pressure 147/58 126/70 (mmHg) O2 Sat by Pulse 97 98 97 Oximetry 01/18/17 01/18/17 01/18/17 18:30 18:45 19:00 Temperature Pulse Rate Respiratory 16 18 20 Rate Blood Pressure 122/48 118/49 124/60 (mmHg) O2 Sat by Pulse 98 97 97 Oximetry 01/18/17 01/18/17 01/18/17 19:01 19:15 19:30 Temperature Pulse Rate Respiratory 22 18 17 Rate Blood Pressure 118/59 120/55 (mmHg) O2 Sat by Pulse 96 96 95 Oximetry 01/18/17 01/18/17 01/18/17 19:33 20:00 20:01 Temperature 98.8 F Pulse Rate Respiratory 20 18 20 Rate Blood Pressure 145/62 (mmHg) O2 Sat by Pulse 95 94 Oximetry 01/18/17 01/18/17 01/18/17 20:30 21:00 21:30 Temperature Pulse Rate Respiratory 20 19 21 Rate Blood Pressure 109/59 93/64 110/68 (mmHg) O2 Sat by Pulse 92 90 94 Oximetry 01/18/17 01/18/17 01/18/17 21:45 22:00 22:01 Temperature Pulse Rate Respiratory 15 19 17 Rate Blood Pressure 133/53 138/64 (mmHg) O2 Sat by Pulse 93 96 95 Oximetry 01/18/17 01/18/17 01/18/17 22:15 22:30 22:45 Temperature Pulse Rate Respiratory 15 20 19 Rate Blood Pressure 133/54 137/53 131/53 (mmHg) O2 Sat by Pulse 97 96 96 Oximetry 01/18/17 01/18/17 01/18/17 23:00 23:30 23:46 Temperature Pulse Rate Respiratory 19 16 17 Rate Blood Pressure 132/92 139/52 (mmHg) O2 Sat by Pulse 96 96 94 Oximetry 01/18/17 01/18/17 01/18/17 23:47 23:50 23:56 Temperature 97.3 F Pulse Rate Respiratory 16 16 Rate Blood Pressure 137/54 (mmHg) O2 Sat by Pulse 95 97 Oximetry 01/19/17 01/19/17 01/19/17 00:00 00:01 01:00 Temperature Pulse Rate Respiratory 21 16 16 Rate Blood Pressure 138/54 142/50 (mmHg) O2 Sat by Pulse 95 95 96 Oximetry 01/19/17 01/19/17 01/19/17 02:00 03:00 03:59 Temperature Pulse Rate Respiratory 17 20 Rate Blood Pressure 139/60 141/63 (mmHg) O2 Sat by Pulse 96 95 92 Oximetry 01/19/17 01/19/17 01/19/17 04:00 05:00 05:01 Temperature 98.3 F Pulse Rate 61 Respiratory 15 18 17 Rate Blood Pressure 143/57 140/58 (mmHg) O2 Sat by Pulse 96 96 96 Oximetry 01/19/17 01/19/17 01/19/17 05:46 06:00 07:00 Temperature Pulse Rate 60 Respiratory 16 14 16 Rate Blood Pressure 151/65 (mmHg) O2 Sat by Pulse 96 96 Oximetry 01/19/17 01/19/17 01/19/17 07:01 07:42 07:50 Temperature 97.4 F Pulse Rate 60 Respiratory 15 18 Rate Blood Pressure (mmHg) O2 Sat by Pulse 96 Oximetry 01/19/17 01/19/17 01/19/17 08:00 08:01 08:45 Temperature Pulse Rate 63 60 59 Respiratory 16 16 19 Rate Blood Pressure 146/74 147/55 (mmHg) O2 Sat by Pulse 96 96 97 Oximetry 01/19/17 01/19/17 01/19/17 09:00 09:01 09:15 Temperature Pulse Rate 59 59 58 Respiratory 19 16 20 Rate Blood Pressure 145/63 153/81 (mmHg) O2 Sat by Pulse 98 98 99 Oximetry 01/19/17 01/19/17 01/19/17 09:31 09:45 10:00 Temperature Pulse Rate 58 62 67 Respiratory 14 13 17 Rate Blood Pressure 155/56 153/64 151/58 (mmHg) O2 Sat by Pulse 99 99 97 Oximetry 01/19/17 01/19/17 01/19/17 10:15 10:30 10:45 Temperature Pulse Rate 65 60 60 Respiratory 18 19 17 Rate Blood Pressure 152/72 129/51 128/51 (mmHg) O2 Sat by Pulse 98 96 97 Oximetry 01/19/17 01/19/17 01/19/17 11:00 11:01 11:15 Temperature Pulse Rate 61 57 60 Respiratory 19 18 18 Rate Blood Pressure 116/52 121/49 (mmHg) O2 Sat by Pulse 96 98 98 Oximetry 01/19/17 01/19/17 11:25 11:36 Temperature 97.8 F Pulse Rate 64 Respiratory 23 Rate Blood Pressure 128/52 (mmHg) O2 Sat by Pulse 98 Oximetry Oxygen Devices in Use Now: Nasal Cannula Appearance: Alert, supine in bed. In fair spirits. Looks tired but comfortable. Eyes: No Scleral Icterus Neck: No Thyroid Enlargement, Masses Respiratory: Symmetrical Chest Expansion and Respiratory Effort, Clear to Auscultation, Clear to Percussion Cardiovascular: RRR, No Edema, - - 2/6 systolic murmur across precordium Extremities: No Edema, No Clubbing, Cyanosis, - Skin: No Rash or Ulcers, No Nodules or Sclerosis, - Neurological: Alert and Oriented x 3, NL Sensation Result Diagrams: 01/19/17 05:22 01/19/17 08:30 Microbiology and Other Data: Microbiology 01/17/17 01:00 Influenza Types A,B Antigen (HEIDI) - Final Nasal Specimen received for Influenza A/B Molecular testing Assess/Plan/Problems-Billing Assessment: - Patient Problems (1) ESRD (end stage renal disease) Current Visit: No Status: Chronic Code(s): N18.6 - END STAGE RENAL DISEASE SNOMED Code(s): 69408265 Comment: On HD, dialyzed 01/19 in ICU. Discussed with Dr. Johnson 01/18--pt to have HD with removal of 1 L fluid 01/18. (2) Aortic stenosis Current Visit: Yes Status: Acute Code(s): I35.0 - NONRHEUMATIC AORTIC (VALVE ) STENOSIS SNOMED Code(s): 56752603 Comment: With acute on chronic systolic CHF. Discussed with Dr. Carvajal. May benefit most from HD and antibiotics. (3) PAF (paroxysmal atrial fibrillation) Current Visit: Yes Status: Acute Code(s): I48.0 - PAROXYSMAL ATRIAL FIBRILLATION SNOMED Code(s): 295943314 Comment: Had PAF again evening 01/18, in NSR 01/19. Start warfarin 01/19. Baseline INR 01/20. (4) End of life care Current Visit: Yes Status: Acute Code(s): Z51.5 - ENCOUNTER FOR PALLIATIVE CARE SNOMED Code(s): 604255946 Comment: Patient re-affirms that she wants to be a full code but agrees to Palliative care consult. (5) Leukocytosis Current Visit: Yes Status: Acute Code(s): D72.829 - ELEVATED WHITE BLOOD CELL COUNT, UNSPECIFIED SNOMED Code(s): 783609114 Comment: No clear evidence of infection. Stop vanco 01/19, 1 more day cefepime. CXR 01/20.
[2017-01-19] MEDS: Warfarin TAB(*) 2 MG PO SCH (16:54)
[2017-01-19] MEDS: Cefepime(*) 1 GM in NS 0.9% 50 ML* 50 ML IVPB SCH (18:10)
[2017-01-19] MEDS: Metoprolol Succinate XL TAB* 50 MG PO SCH (20:36)
[2017-01-19] MEDS: Ropinirole TAB* 0.5 MG TAB PO SCH (20:40)
[2017-01-19] MEDS: Senna TAB PO SCH (20:40)
[2017-01-20] MEDS: Levothyroxine TAB* 88 MCG TAB PO SCH (05:43)
[2017-01-20 05:56] LABS: Hematocrit 28 % (35-47); Hemoglobin 9.1 g/dl (12.0-16.0); Mean Corpuscular HGB Conc 32 g/dl (31-36); Mean Corpuscular Hemoglobin 31 pg (27-31); Mean Corpuscular Volume 98 fL (80-97); Mean Platelet Volume 7 um3 (7.4-10.4); Red Blood Count 2.89 10^6/ul (4.0-5.4); Red Cell Distribution Width 16 % (10.5-15); White Blood Count 13.4 10^3/ul (3.5-10.8)
[2017-01-20 05:58] LABS: Add Diff/Slide Review? Slide Review Added; Comments Flag Yes
--- NOTE | 2017-01-20 08:21 | RAD ---
HISTORY: Acute renal failure COMPARISONS: January 17, 2017 VIEWS: 2: Frontal and lateral views of the chest. FINDINGS: CARDIOMEDIASTINAL SILHOUETTE: The cardiac silhouette is enlarged. The cardiomediastinal silhouette is otherwise normal. SOHA: The soha are normal. PLEURA: There are large bilateral pleural effusions LUNG PARENCHYMA: There is diffuse reticular pattern with indistinct pulmonary vessels. There is confluent alveolar opacification lung bases bilaterally. ABDOMEN: The upper abdomen is clear. There is no subphrenic gas. BONES AND SOFT TISSUES: No bone or soft tissue abnormalities are noted. OTHER: None. IMPRESSION: 1. CARDIOMEGALY WITH PULMONARY INTERSTITIAL EDEMA. 2. LARGE BILATERAL PLEURAL EFFUSIONS. 3. BIBASILAR ATELECTASIS VERSUS CONSOLIDATION.
[2017-01-20] MEDS: Sodium Bicarbonate (ANTACID)* 650 MG TAB PO SCH ×2 (08:44→21:01)
[2017-01-20] MEDS: Metoprolol Succinate XL TAB* 100 MG PO SCH (08:45)
[2017-01-20] MEDS: Docusate CAP* 100 MG PO SCH ×2 (08:45→21:00)
[2017-01-20] MEDS: Clopidogrel TAB* 75 MG PO SCH (08:45)
[2017-01-20] MEDS: Folic Acid TAB* 1 MG PO SCH (08:46)
[2017-01-20] MEDS: amLODIPine TAB* 5 MG PO SCH (08:47)
[2017-01-20] MEDS: Citalopram TAB* 20 MG PO SCH (08:47)
[2017-01-20] MEDS: Aspirin EC Low Dose* 81 MG TAB.EC PO SCH (08:47)
[2017-01-20] MEDS: Lisinopril TAB* 5 MG PO SCH (08:47)
[2017-01-20] MEDS: CMCS: Rosuvastatin (NF) 5 MG TAB PO SCH (08:51)
[2017-01-20] MEDS: Hyoscyamine TAB* 0.125 MG PO SCH (08:51)
--- NOTE | 2017-01-20 14:55 | PN ---
Subjective Date of Service: 01/20/17 Interval History: C/O fatigue. Objective Active Medications: Acetaminophen (Tylenol Tab*) 650 mg PO Q4H PRN PRN Reason: FEVER/PAIN Last Admin: 01/17/17 20:31 Dose: 650 mg Amlodipine Besylate (Norvasc Tab*) 10 mg PO DAILY [facility] PRN Reason: Protocol Last Admin: 01/20/17 08:47 Dose: 10 mg Aspirin (Aspirin Ec Low Dose*) 81 mg PO DAILY [facility] Last Admin: 01/20/17 08:47 Dose: 81 mg Citalopram Hydrobromide (Celexa Tab*) 20 mg PO DAILY [facility] Last Admin: 01/20/17 08:47 Dose: 20 mg Clopidogrel Bisulfate (Plavix Tab*) 75 mg PO DAILY [facility] Last Admin: 01/20/17 08:45 Dose: 75 mg Docusate Sodium (Colace Cap*) 100 mg PO BID [facility] Last Admin: 01/20/17 08:45 Dose: 100 mg Folic Acid (Folvite Tab*) 1 mg PO DAILY [facility] Last Admin: 01/20/17 08:46 Dose: 1 mg Hyoscyamine (Anaspaz Tab*) 0.125 mg PO DAILY [facility] Last Admin: 01/20/17 08:51 Dose: 0.125 mg Cefepime HCl 1 gm/ Sodium (Chloride) 50 mls @ 100 mls/hr IVPB Q24H [facility] Last Admin: 01/19/17 18:10 Dose: 100 mls/hr Levothyroxine Sodium (Synthroid Tab*) 88 mcg PO DAILY@0600 [facility] Last Admin: 01/20/17 05:43 Dose: 88 mcg Lisinopril (Prinivil Tab*) 2.5 mg PO DAILY [facility] Last Admin: 01/20/17 08:47 Dose: 2.5 mg Metoprolol Succinate (Toprol Xl Tab*) 100 mg PO DAILY [facility] Last Admin: 01/20/17 08:45 Dose: 100 mg Metoprolol Succinate (Toprol Xl Tab*) 50 mg PO BEDTIME [facility] Last Admin: 01/19/17 20:36 Dose: 50 mg Ondansetron HCl (Zofran Inj*) 4 mg IV Q6H PRN PRN Reason: NAUSEA Last Admin: 01/20/17 12:48 Dose: 4 mg Ropinirole HCl (Requip Tab*) 0.25 mg PO BEDTIME [facility] Last Admin: 01/19/17 20:40 Dose: 0.25 mg Rosuvastatin Calcium (Crestor (Nf)) 5 mg PO DAILY [facility] PRN Reason: Protocol Last Admin: 01/20/17 08:51 Dose: 5 mg Senna (Senokot Tab*) 2 tab PO BEDTIME [facility] Last Admin: 01/19/17 20:40 Dose: 2 tab Sodium Bicarbonate (Sodium Bicarbonate (Antacid)*) 650 mg PO BID [facility] Last Admin: 01/20/17 08:44 Dose: 650 mg Warfarin Sodium (Coumadin Tab(*)) 2 mg PO DAILY@1700 [facility] PRN Reason: Protocol Last Admin: 01/19/17 16:54 Dose: 2 mg Vital Signs 01/19/17 01/19/17 01/19/17 15:42 16:47 19:09 Temperature 98.1 F 98.0 F Pulse Rate 64 63 Respiratory 20 20 Rate Blood Pressure 115/38 117/35 (mmHg) O2 Sat by Pulse 100 99 99 Oximetry 01/19/17 01/19/17 01/20/17 20:53 20:54 00:00 Temperature Pulse Rate Respiratory 18 Rate Blood Pressure (mmHg) O2 Sat by Pulse 97 95 Oximetry 01/20/17 01/20/17 01/20/17 00:18 03:46 06:47 Temperature 98.0 F 98.1 F Pulse Rate 61 64 Respiratory 20 20 20 Rate Blood Pressure 133/43 138/43 (mmHg) O2 Sat by Pulse 95 96 Oximetry 01/20/17 01/20/17 01/20/17 07:46 08:00 08:51 Temperature 98.7 F Pulse Rate 63 Respiratory 22 18 Rate Blood Pressure 128/41 (mmHg) O2 Sat by Pulse 99 99 Oximetry 01/20/17 01/20/17 10:51 11:13 Temperature 97.8 F Pulse Rate 59 Respiratory 16 22 Rate Blood Pressure 114/45 (mmHg) O2 Sat by Pulse 100 Oximetry Oxygen Devices in Use Now: Nasal Cannula Appearance: Alert, partly up in bed. In fair spirits. Somewhat tachypneic. Eyes: No Scleral Icterus Extremities: No Edema, No Clubbing, Cyanosis, - Skin: No Rash or Ulcers, No Nodules or Sclerosis, - Neurological: Alert and Oriented x 3, NL Sensation, NL Muscle Strength and Tone Result Diagrams: 01/20/17 05:41 01/19/17 08:30 Microbiology and Other Data: Microbiology 01/17/17 01:00 Influenza Types A,B Antigen (HEIDI) - Final Nasal Specimen received for Influenza A/B Molecular testing Assess/Plan/Problems-Billing Assessment: - Patient Problems (1) ESRD (end stage renal disease) Current Visit: No Status: Chronic Code(s): N18.6 - END STAGE RENAL DISEASE SNOMED Code(s): 78069974 Comment: On HD, dialyzed 01/19 in ICU. Discussed with Dr. Johnson 01/18--pt to had HD with removal of 1 L fluid 01/18, HD on 01/20 also. Pt wants to continue HD. (2) Aortic stenosis Current Visit: Yes Status: Acute Code(s): I35.0 - NONRHEUMATIC AORTIC (VALVE ) STENOSIS SNOMED Code(s): 16776969 Comment: With acute on chronic systolic CHF. Discussed with Dr. Carvajal. May benefit most from HD and antibiotics. Large pleural effusions seen on . (3) PAF (paroxysmal atrial fibrillation) Current Visit: Yes Status: Acute Code(s): I48.0 - PAROXYSMAL ATRIAL FIBRILLATION SNOMED Code(s): 074227229 Comment: Had PAF again evening 01/18, in NSR 01/19. Start warfarin . INR on 01/20 is 1.01, repeat INR on 01/22. (4) End of life care Current Visit: Yes Status: Acute Code(s): Z51.5 - ENCOUNTER FOR PALLIATIVE CARE SNOMED Code(s): 364265662 Comment: Patient re-affirms that she wants to be a full code but agrees to Palliative care consult. (5) Leukocytosis Current Visit: Yes Status: Acute Code(s): D72.829 - ELEVATED WHITE BLOOD CELL COUNT, UNSPECIFIED SNOMED Code(s): 389793270 Comment: No clear evidence of infection. Stop vanco 01/19, stop cefepime . CXR 01/20 still shows marked interstitial edema and pleural effusions. (6) Anemia of renal disease Current Visit: No Status: Active Code(s): D63.1 - ANEMIA IN CHRONIC KIDNEY DISEASE SNOMED Code(s): 681674753 Comment: Repeat CBC 01/22.
[2017-01-20 16:45] LABS: Urine Bacteria Absent (Absent); Urine Bilirubin Negative (Negative); Urine Glucose 2+(150 mg/dL) (Negative); Urine Nitrite Negative (Negative)
[2017-01-20] MEDS: Warfarin TAB(*) 2 MG PO SCH (16:59)
[2017-01-20] MEDS: Cefepime(*) 1 GM in NS 0.9% 50 ML* 50 ML IVPB SCH (17:53)
[2017-01-20] MEDS: Acetaminophen TAB* 325 MG PO PRN ×2 (18:44→22:36)
[2017-01-20] MEDS: Ropinirole TAB* 0.5 MG TAB PO SCH (21:00)
[2017-01-20] MEDS: Metoprolol Succinate XL TAB* 50 MG PO SCH (21:00)
[2017-01-20] MEDS: Senna TAB PO SCH (21:01)
[2017-01-21 04:46] LABS: Hematocrit 26 % (35-47); Hemoglobin 8.3 g/dl (12.0-16.0); Mean Corpuscular HGB Conc 32 g/dl (31-36); Mean Corpuscular Hemoglobin 31 pg (27-31); Mean Corpuscular Volume 98 fL (80-97); Mean Platelet Volume 7 um3 (7.4-10.4); Red Blood Count 2.71 10^6/ul (4.0-5.4); Red Cell Distribution Width 16 % (10.5-15); White Blood Count 14.8 10^3/ul (3.5-10.8)
[2017-01-21 04:47] LABS: Comments Flag Yes
[2017-01-21] MEDS: Levothyroxine TAB* 88 MCG TAB PO SCH (05:50)
[2017-01-21] MEDS: Hyoscyamine TAB* 0.125 MG PO SCH (08:45)
[2017-01-21] MEDS: Metoprolol Succinate XL TAB* 100 MG PO SCH (08:45)
[2017-01-21] MEDS: CMCS: Rosuvastatin (NF) 5 MG TAB PO SCH (08:45)
[2017-01-21] MEDS: Lisinopril TAB* 5 MG PO SCH (08:45)
[2017-01-21] MEDS: amLODIPine TAB* 5 MG PO SCH (08:46)
[2017-01-21] MEDS: Aspirin EC Low Dose* 81 MG TAB.EC PO SCH (08:46)
[2017-01-21] MEDS: Citalopram TAB* 20 MG PO SCH (08:47)
[2017-01-21] MEDS: Clopidogrel TAB* 75 MG PO SCH (08:47)
[2017-01-21] MEDS: Docusate CAP* 100 MG PO SCH ×2 (08:47→23:07)
[2017-01-21] MEDS: Folic Acid TAB* 1 MG PO SCH (08:47)
[2017-01-21] MEDS: Sodium Bicarbonate (ANTACID)* 650 MG TAB PO SCH ×2 (08:48→23:09)
[2017-01-21] MEDS: Acetaminophen TAB* 325 MG PO PRN ×3 (11:29→23:08)
[2017-01-21 11:47] LABS: TSH (Thyroid Stimulating Horm) 7.23 mcIU/mL (0.34-5.60)
--- NOTE | 2017-01-21 13:40 | PN ---
Subjective Date of Service: 01/21/17 Interval History: Patient resting quietly in bed. Son and 2 gc present, have been there 1 hr. She had spoke to them earlier. Objective Active Medications: Acetaminophen (Tylenol Tab*) 650 mg PO Q4H PRN PRN Reason: FEVER/PAIN Last Admin: 01/21/17 11:29 Dose: 650 mg Amlodipine Besylate (Norvasc Tab*) 10 mg PO DAILY [facility] PRN Reason: Protocol Last Admin: 01/21/17 08:46 Dose: 10 mg Aspirin (Aspirin Ec Low Dose*) 81 mg PO DAILY [facility] Last Admin: 01/21/17 08:46 Dose: 81 mg Citalopram Hydrobromide (Celexa Tab*) 20 mg PO DAILY [facility] Last Admin: 01/21/17 08:47 Dose: 20 mg Clopidogrel Bisulfate (Plavix Tab*) 75 mg PO DAILY [facility] Last Admin: 01/21/17 08:47 Dose: 75 mg Docusate Sodium (Colace Cap*) 100 mg PO BID [facility] Last Admin: 01/21/17 08:47 Dose: 100 mg Folic Acid (Folvite Tab*) 1 mg PO DAILY [facility] Last Admin: 01/21/17 08:47 Dose: 1 mg Hyoscyamine (Anaspaz Tab*) 0.125 mg PO DAILY [facility] Last Admin: 01/21/17 08:45 Dose: 0.125 mg Cefepime HCl 1 gm/ Sodium (Chloride) 50 mls @ 100 mls/hr IVPB Q24H [facility] Last Admin: 01/20/17 17:53 Dose: 100 mls/hr Levothyroxine Sodium (Synthroid Tab*) 88 mcg PO DAILY@0600 [facility] Last Admin: 01/21/17 05:50 Dose: 88 mcg Lisinopril (Prinivil Tab*) 2.5 mg PO DAILY [facility] Last Admin: 01/21/17 08:45 Dose: 2.5 mg Metoprolol Succinate (Toprol Xl Tab*) 100 mg PO DAILY [facility] Last Admin: 01/21/17 08:45 Dose: 100 mg Metoprolol Succinate (Toprol Xl Tab*) 50 mg PO BEDTIME [facility] Last Admin: 01/20/17 21:00 Dose: 50 mg Ondansetron HCl (Zofran Inj*) 4 mg IV Q6H PRN PRN Reason: NAUSEA Last Admin: 01/20/17 12:48 Dose: 4 mg Ropinirole HCl (Requip Tab*) 0.25 mg PO BEDTIME [facility] Last Admin: 01/20/17 21:00 Dose: 0.25 mg Rosuvastatin Calcium (Crestor (Nf)) 5 mg PO DAILY [facility] PRN Reason: Protocol Last Admin: 01/21/17 08:45 Dose: 5 mg Senna (Senokot Tab*) 2 tab PO BEDTIME [facility] Last Admin: 01/20/17 21:01 Dose: 2 tab Sodium Bicarbonate (Sodium Bicarbonate (Antacid)*) 650 mg PO BID [facility] Last Admin: 01/21/17 08:48 Dose: 650 mg Warfarin Sodium (Coumadin Tab(*)) 2 mg PO DAILY@1700 [facility] PRN Reason: Protocol Last Admin: 01/20/17 16:59 Dose: 2 mg Vital Signs 01/20/17 01/20/17 01/20/17 15:42 16:00 20:00 Temperature Pulse Rate 59 Respiratory 20 22 Rate Blood Pressure 112/40 (mmHg) O2 Sat by Pulse 95 95 Oximetry 01/20/17 01/20/17 01/21/17 20:01 23:33 00:00 Temperature 97.8 F 98.0 F Pulse Rate 63 69 Respiratory 24 16 Rate Blood Pressure 116/39 123/46 (mmHg) O2 Sat by Pulse 97 99 97 Oximetry 01/21/17 01/21/17 01/21/17 03:31 07:17 07:26 Temperature 97.9 F 98.7 F Pulse Rate 64 66 Respiratory 16 16 20 Rate Blood Pressure 145/54 141/54 (mmHg) O2 Sat by Pulse 100 99 Oximetry 01/21/17 01/21/17 08:00 08:45 Temperature Pulse Rate Respiratory 16 Rate Blood Pressure (mmHg) O2 Sat by Pulse 99 Oximetry Oxygen Devices in Use Now: Nasal Cannula Appearance: Supine in bed, resting quietly but somewhat tachypneic. Extremities: No Edema, No Clubbing, Cyanosis, - Skin: No Rash or Ulcers, No Nodules or Sclerosis, - Result Diagrams: 01/21/17 04:08 01/21/17 04:08 Microbiology and Other Data: Microbiology 01/17/17 01:00 Influenza Types A,B Antigen (HEIDI) - Final Nasal Specimen received for Influenza A/B Molecular testing Assess/Plan/Problems-Billing Assessment: - Patient Problems (1) ESRD (end stage renal disease) Current Visit: No Status: Chronic Code(s): N18.6 - END STAGE RENAL DISEASE SNOMED Code(s): 54554858 Comment: On HD, dialyzed 01/19 in ICU. Discussed with Dr. Johnson 01/18--pt to had HD with removal of 1 L fluid 01/18, HD on 01/20 also. Pt wants to continue HD. (2) Aortic stenosis Current Visit: Yes Status: Acute Code(s): I35.0 - NONRHEUMATIC AORTIC (VALVE ) STENOSIS SNOMED Code(s): 70076179 Comment: With acute on chronic systolic CHF. Discussed with Dr. Carvajal. May benefit most from HD and antibiotics. Large pleural effusions seen on . (3) PAF (paroxysmal atrial fibrillation) Current Visit: Yes Status: Acute Code(s): I48.0 - PAROXYSMAL ATRIAL FIBRILLATION SNOMED Code(s): 121957398 Comment: Had PAF again evening 01/18, in NSR 01/19. Start warfarin . INR on 01/20 is 1.01, repeat INR on 01/22. (4) End of life care Current Visit: Yes Status: Acute Code(s): Z51.5 - ENCOUNTER FOR PALLIATIVE CARE SNOMED Code(s): 901423402 Comment: Patient re-affirms that she wants to be a full code but agrees to Palliative care consult. (5) Leukocytosis Current Visit: Yes Status: Acute Code(s): D72.829 - ELEVATED WHITE BLOOD CELL COUNT, UNSPECIFIED SNOMED Code(s): 568676913 Comment: No clear evidence of infection, cannot r/o HCAP. Stopped vanco , stop cefepime 01/24 (7 days tx). CXR 01/20 still shows marked interstitial edema and pleural effusions. (6) Anemia of renal disease Current Visit: No Status: Active Code(s): D63.1 - ANEMIA IN CHRONIC KIDNEY DISEASE SNOMED Code(s): 996761733 Comment: Repeat CBC 01/22. (7) Hypothyroidism Current Visit: Yes Status: Acute Code(s): E03.9 - HYPOTHYROIDISM, UNSPECIFIED SNOMED Code(s): 08206121 Comment: TSH 7.23 01/21/17. Levothyroxine increased to 100 mcg 01/22/17.
--- NOTE | 2017-01-21 13:59 | PN ---
Progress Note - Progress Note Date of Service: 01/21/17 Note: Additonal findings on PE: 3-/6 systolic murmur across precordium.
[2017-01-21] MEDS: Warfarin TAB(*) 2 MG PO SCH (16:49)
[2017-01-21] MEDS: Cefepime(*) 1 GM in NS 0.9% 50 ML* 50 ML IVPB SCH (17:54)
[2017-01-21] MEDS ORDERED: Magnesium Hydroxide LIQ* 30 ML UDC PO ONE (18:00)
[2017-01-21] MEDS ORDERED: Simethicone TAB* 80 MG TAB.CHEW PO ONE (18:01)
[2017-01-21] MEDS: Ropinirole TAB* 0.5 MG TAB PO SCH (23:07)
[2017-01-21] MEDS: Metoprolol Succinate XL TAB* 50 MG PO SCH (23:07)
[2017-01-21] MEDS: Senna TAB PO SCH (23:08)
[2017-01-22] MEDS: Hemorrhoidal OINT TOPICAL PRN (02:16)
[2017-01-22] MEDS: Levothyroxine TAB* 100 MCG TAB PO SCH (06:58)
[2017-01-22] MEDS: Hyoscyamine TAB* 0.125 MG PO SCH (07:41)
[2017-01-22] MEDS: CMCS: Rosuvastatin (NF) 5 MG TAB PO SCH (07:41)
[2017-01-22] MEDS: Acetaminophen TAB* 325 MG PO PRN ×2 (07:42→20:09)
[2017-01-22] MEDS: amLODIPine TAB* 5 MG PO SCH (07:43)
[2017-01-22] MEDS: Docusate CAP* 100 MG PO SCH ×2 (07:43→19:50)
[2017-01-22] MEDS: Sodium Bicarbonate (ANTACID)* 650 MG TAB PO SCH ×2 (07:44→19:51)
[2017-01-22] MEDS: Folic Acid TAB* 1 MG PO SCH (07:44)
[2017-01-22] MEDS: Clopidogrel TAB* 75 MG PO SCH (07:44)
[2017-01-22] MEDS: Aspirin EC Low Dose* 81 MG TAB.EC PO SCH (07:44)
[2017-01-22] MEDS: Citalopram TAB* 20 MG PO SCH (07:45)
[2017-01-22] MEDS: Lisinopril TAB* 5 MG PO SCH (07:45)
[2017-01-22] MEDS: Metoprolol Succinate XL TAB* 100 MG PO SCH (07:46)
[2017-01-22 10:04] LABS: Hematocrit 27 % (35-47); Hemoglobin 8.8 g/dl (12.0-16.0); Mean Corpuscular HGB Conc 33 g/dl (31-36); Mean Corpuscular Hemoglobin 31 pg (27-31); Mean Corpuscular Volume 97 fL (80-97); Mean Platelet Volume 7 um3 (7.4-10.4); Red Blood Count 2.79 10^6/ul (4.0-5.4); Red Cell Distribution Width 16 % (10.5-15); White Blood Count 15.6 10^3/ul (3.5-10.8)
[2017-01-22 10:09] LABS: Comments Flag Yes
[2017-01-22 10:16] LABS: BUN/Creatinine Ratio 10.6 (8-20); C Reactive Protein 41.79 mg/L (< 5.00); Calcium 8.7 mg/dL (8.6-10.3); EGFR African American 12.7 (>60); EGFR Non-African American 9.9 (>60); Potassium 4.8 mmol/L (3.5-5.0)
[2017-01-22 10:56] LABS: Free T3 1.5 pg/mL (2.5-3.9)
[2017-01-22 10:57] LABS: Free T4 0.95 ng/dL (0.61-1.12)
[2017-01-22] MEDS ORDERED: Senna TAB PO PRN (11:34)
[2017-01-22] MEDS ORDERED: Docusate CAP* 100 MG PO PRN (11:34)
--- NOTE | 2017-01-22 11:45 | PN ---
Subjective Date of Service: 01/22/17 Interval History: Pt feels tired. Her bottoms hurts. she stated that she has lived long enough and wants to "stop it all". Requests to stop dialysis Objective Active Medications: Acetaminophen (Tylenol Tab*) 650 mg PO Q4H PRN PRN Reason: FEVER/PAIN Last Admin: 01/22/17 07:42 Dose: 650 mg Amlodipine Besylate (Norvasc Tab*) 10 mg PO DAILY [facility] PRN Reason: Protocol Last Admin: 01/22/17 07:43 Dose: 10 mg Aspirin (Aspirin Ec Low Dose*) 81 mg PO DAILY [facility] Last Admin: 01/22/17 07:44 Dose: 81 mg Citalopram Hydrobromide (Celexa Tab*) 20 mg PO DAILY [facility] Last Admin: 01/22/17 07:45 Dose: 20 mg Clopidogrel Bisulfate (Plavix Tab*) 75 mg PO DAILY [facility] Last Admin: 01/22/17 07:44 Dose: 75 mg Docusate Sodium (Colace Cap*) 100 mg PO BID [facility] Last Admin: 01/22/17 07:43 Dose: 100 mg Docusate Sodium (Colace Cap*) 100 mg PO BID PRN PRN Reason: CONSTIPATION Folic Acid (Folvite Tab*) 1 mg PO DAILY [facility] Last Admin: 01/22/17 07:44 Dose: 1 mg Hyoscyamine (Anaspaz Tab*) 0.125 mg PO DAILY [facility] Last Admin: 01/22/17 07:41 Dose: 0.125 mg Cefepime HCl 1 gm/ Sodium (Chloride) 50 mls @ 100 mls/hr IVPB Q24H [facility] Stop: 01/24/17 14:00 Last Admin: 01/21/17 17:54 Dose: 100 mls/hr Levothyroxine Sodium (Synthroid Tab*) 100 mcg PO DAILY@0600 [facility] Last Admin: 01/22/17 06:58 Dose: 100 mcg Lisinopril (Prinivil Tab*) 2.5 mg PO DAILY [facility] Last Admin: 01/22/17 07:45 Dose: 2.5 mg Metoprolol Succinate (Toprol Xl Tab*) 100 mg PO DAILY [facility] Last Admin: 01/22/17 07:46 Dose: 100 mg Metoprolol Succinate (Toprol Xl Tab*) 50 mg PO BEDTIME [facility] Last Admin: 01/21/17 23:07 Dose: 50 mg Morphine Sulfate (Morphine Oral Concentrate*) 2.5 mg SL Q2H PRN PRN Reason: PAIN Ondansetron HCl (Zofran Inj*) 4 mg IV Q6H PRN PRN Reason: NAUSEA Last Admin: 01/20/17 12:48 Dose: 4 mg Phenyleph/Shark Oil/Min Oil/Petrol (Preparation H*) 1 applic TOPICAL . NEEDED PRN PRN Reason: RECTAL PAIN Last Admin: 01/22/17 02:16 Dose: 1 applic Ropinirole HCl (Requip Tab*) 0.25 mg PO BEDTIME [facility] Last Admin: 01/21/17 23:07 Dose: 0.25 mg Rosuvastatin Calcium (Crestor (Nf)) 5 mg PO DAILY [facility] PRN Reason: Protocol Last Admin: 01/22/17 07:41 Dose: 5 mg Senna (Senokot Tab*) 2 tab PO BEDTIME [facility] Last Admin: 01/21/17 23:08 Dose: 2 tab Senna (Senokot Tab*) 1 tab PO BEDTIME PRN PRN Reason: CONSTIPATION Sodium Bicarbonate (Sodium Bicarbonate (Antacid)*) 650 mg PO BID [facility] Last Admin: 01/22/17 07:44 Dose: 650 mg Warfarin Sodium (Coumadin Tab(*)) 2 mg PO DAILY@1700 [facility] PRN Reason: Protocol Last Admin: 01/21/17 16:49 Dose: 2 mg Vital Signs 01/21/17 01/21/17 01/21/17 15:25 16:00 19:12 Temperature 98.0 F 97.5 F Pulse Rate 56 56 Respiratory 24 16 Rate Blood Pressure 117/37 (mmHg) O2 Sat by Pulse 98 98 100 Oximetry 01/21/17 01/21/17 01/21/17 19:15 20:00 23:03 Temperature Pulse Rate Respiratory 16 Rate Blood Pressure 120/58 132/52 (mmHg) O2 Sat by Pulse Oximetry 01/21/17 01/22/17 01/22/17 23:34 00:00 03:25 Temperature 97.9 F 97.8 F Pulse Rate 59 62 Respiratory 20 20 Rate Blood Pressure 116/34 133/48 (mmHg) O2 Sat by Pulse 99 99 99 Oximetry 01/22/17 01/22/17 01/22/17 07:23 07:41 08:00 Temperature 97.7 F Pulse Rate 62 Respiratory 16 18 18 Rate Blood Pressure 135/49 (mmHg) O2 Sat by Pulse 100 100 Oximetry Oxygen Devices in Use Now: Nasal Cannula - at 4 l Appearance: 86 yo F in nAD, AAOx3 Eyes: No Scleral Icterus, PERRLA Ears/Nose/Mouth/Throat: NL Teeth, Lips, Gums Neck: NL Appearance and Movements; NL JVP, Trachea Midline Respiratory: Symmetrical Chest Expansion and Respiratory Effort, - - crackles at b/l bases with decreased breath sounds at RLL Cardiovascular: RRR, - - 4/6 HARRIET Abdominal: NL Sounds; No Tenderness; No Distention, No Hepatosplenomegaly Lymphatic: No Cervical Adenopathy Extremities: No Edema, No Clubbing, Cyanosis Skin: No Nodules or Sclerosis, - - stage 2 sacral decub Neurological: Alert and Oriented x 3, NL Muscle Strength and Tone Result Diagrams: 01/22/17 05:46 01/22/17 05:46 Microbiology and Other Data: Microbiology 01/17/17 01:00 Influenza Types A,B Antigen (HEIDI) - Final Nasal Specimen received for Influenza A/B Molecular testing Assess/Plan/Problems-Billing Assessment: 86 yo F on HD due to ESRD, with recurrent HCAP - Patient Problems (1) HCAP (healthcare-associated pneumonia) Comment: Completed a 7 day course of Cefepime/Vanco on 01/14/17 No clear evidence of infection this hospital stay, cannot r/o HCAP. Stopped vanco 01/19, plan to stop cefepime 01/24 (7 days tx). CXR 01/20 still shows marked interstitial edema and pleural effusions. Still requiring several liters of supp O2, which appears to be mostly likely due to pleural effusions rather than persistent infiltrate (2) ESRD (end stage renal disease) Comment: On HD, dialyzed 01/19 in ICU. Discussed with Dr. Johnson 01/22--pt wants to discontinue dialysis (3) Aortic stenosis Comment: With acute on chronic systolic CHF. (4) End of life care Comment: Palliative care consult appreciated. Pt wishes to be DNR and stop dialysis. (5) Leukocytosis Comment: persists, cont antibiotics for now (6) Anemia of renal disease Comment: Hb back up to 8.8 (7) Hypothyroidism Comment: TSH 7.23 01/21/17. Levothyroxine increased to 100 mcg 01/22/17. (8) DVT prophylaxis Comment: SQ heparin Status and Disposition: inpatient
[2017-01-22] MEDS: Morphine ORAL CONCENTRATE* 5 MG/0.25 ML ORAL.SYRIN SL PRN ×4 (12:06→18:07)
--- NOTE | 2017-01-22 13:39 | CONS ---
CC: Christa Roberts MD; Tricia Power MD; Yaya Johnson MD; Inés Tejeda MD * PALLIATIVE CARE CONSULTATION: DATE OF CONSULT: 01/22/17 PRIMARY CARE PHYSICIAN: Christa Roberts MD REFERRING PHYSICIAN: Tricia Power MD RADIO ANTENNA INSTALLER: Yaya Johnson MD HOSPITAL COURSE: This is an 86-year-old female who was recently discharged on 01/14/17 after having an ICU admission for severe sepsis secondary to healthcare - associated pneumonia with an NSTEMI as well, was transferred to [facility], returned to the hospital on 01/17/17 with hypoxia and shortness of breath, found to have another healthcare-associated pneumonia. Now on 5 L nasal cannula with dyspnea. Initially on admission, the patient has insisted on being a full code. On my encounter, I spoke with the patient, she initially stated that she wants to be a full code. She relates the alternative is . When discussing her life, she was living independently with her son prior to her admission back in mid December. She was independent with her ADLs. She was going to orthodox regularly [place] now the concern is that with the second admission with the significant decline in her respiratory and cardiac status that she may have to be in a usp and she says she has been having a lot of pain and she feels like this is no longer worth the pain and worth living, and she feels that it is the time to stop doing invasive procedures. I spoke with her regarding her code status and she is agreeable to being a DNR/DNI. When she began speaking about not worth all the pain, I discussed continuing dialysis and that if she was interested in discontinuing this as well. She stated that she was and that she wanted to return back to the [facility] to have a peaceful natural passing. I also offered to speak with her son, Darrius, as she was not sure if he was coming in today. I did try and reach out to him, but I was unable to get in touch with him. Currently, the patient denies any pain. She feels that her breathing is not great. She has not yet been ambulatory since admission. She denies any nausea , vomiting, or diarrhea. Otherwise, review of systems is negative. PAST MEDICAL HISTORY: 1. As mentioned, recent hospitalization from 01/09 to 01/14 for healthcare- associated pneumonia and NSTEMI. 2. History of end-stage renal disease, on hemodialysis Sunday, , Sunday. 3. Coronary artery disease. 4. Paroxysmal atrial fibrillation. 5. Moderate aortic stenosis. 6. Moderate hypertension. 7. History of hypothyroidism. 8. Restless leg syndrome. 9. Hyperlipidemia. 10. CHF with most recent echo showing EF of 35% to 40%. PAST SURGICAL HISTORY: 1. History of AV fistula placed. 2. History of appendectomy. 3. Cholecystectomy. 4. Hysterectomy. 5. History of carotid endarterectomy. 6. History of left hip replacement. INPATIENT MEDICATIONS: 1. Tylenol 650 mg every 4 hours as needed. 2. Aspirin 81 mg daily. 3. Citalopram 20 mg daily. 4. Plavix 75 mg daily. 5. Colace 100 mg p.o. b.i.d. 6. Folic acid 1 mg daily. 7. Hemorrhoidal ointment. 8. Hyoscyamine 0.125 mg daily. 9. Levothyroxine 100 mcg daily. 10. Lisinopril 2.5 mg daily. 11. Cefepime 1 g daily. 12. Metoprolol succinate 100 mg p.o. daily in the morning and 50 mg in the evening. 13. Zofran 4 mg IV q.6 hours as needed. 14. Requip 0.25 mg p.o. at bedtime. 15. Rosuvastatin 5 mg p.o. daily. 16. Senna 2 tabs at bedtime. 17. Simethicone as needed. 18. Sodium bicarb 650 mg p.o. b.i.d. 19. Warfarin 2 mg daily. 20. Amlodipine 10 mg daily. ALLERGIES: ATORVASTATIN, IODINE, PSYLLIUM, TRAZODONE. FAMILY HISTORY: Mother at age 90 from old age. Father with a stroke at age 46. SOCIAL HISTORY: The patient was living independently with her son, Darrius, who is her healthcare proxy up until her hospitalization here at [facility] in 05/12. Since then she was at [facility] briefly. No history of smoking , alcohol, illicit drug use. Initially code status was full, now is a DNR/DNI for comfort measures only. REVIEW OF SYSTEMS: A 14-point review of systems reviewed and as mentioned in the HPI. PHYSICAL EXAM: Vitals: Temp 97.7, pulse rate 62, respiratory rate 18, oxygen saturation 100% on 5 L, blood pressure 135/49. General: Frail elderly female, in no acute distress. Does have some conversational dyspnea. HEENT: Head normocephalic. Pupils equal and reactive. Anicteric. Oropharynx, mucous membranes are dry. Neck: Supple. No lymphadenopathy. Cardiac: Harsh systolic murmur, most prominent at the right sternal base. Regular rate and rhythm. Respiratory: Diminished breath sounds, bilateral rhonchi. No increased work of breathing. Abdomen: Soft, nontender, nondistended. Extremities: Trace pretibial edema. +1 DPs. Neurological: Alert and oriented x3. No focal neurologic deficits. LABORATORY DATA: White count 15.6, hemoglobin 8.8, hematocrit 27, platelets 346. Sodium 130, potassium 4.8, chloride 91, bicarb 31, BUN 45, creatinine 4.25. CRP is 41. Chest x-ray from 01/20 shows cardiomegaly with pulmonary interstitial edema, large bilateral pleural effusions, bibasilar atelectasis versus consolidation. ASSESSMENT: This is an 86-year-old female with a recent clinical decline with a history of end-stage renal disease, on hemodialysis, who presents to the hospital for the second time for respiratory distress secondary to volume overload and pneumonia. The patient initially requesting to be a full code after discussing this at further length. She does not want to be resuscitated or intubated and now is interested in discontinuing hemodialysis altogether. I tried to reach out to her son to talk with him to confirm that all the family is agreeable to her wishes, but have not been able to get in touch with him. The patient does prefer to go back to [facility] with hospice services. We will have our palliative care team follow up with her and the primary team to follow up as well and try and reach out to the son. Her principal diagnosis is hypoxic respiratory failure. Secondary diagnosis is end-stage renal disease. I will start her on a low dose morphine as needed for air hunger and a bowel regimen and would follow up to confirm comfort measures with the hospitalist before discontinuing further medications and treatment. Thank you for this consultation. I will follow along with you. PATIENT TIME: Greater than 90 minutes spent doing the consultation, more than half the time was spent in direct patient contact. [id number]/[facility] #: [id number] ALEJANDRO
[2017-01-22] MEDS: Warfarin TAB(*) 2 MG PO SCH (16:04)
[2017-01-22] MEDS: Cefepime(*) 1 GM in NS 0.9% 50 ML* 50 ML IVPB SCH (18:13)
[2017-01-22] MEDS: Ropinirole TAB* 0.5 MG TAB PO SCH (19:50)
[2017-01-22] MEDS: Metoprolol Succinate XL TAB* 50 MG PO SCH (19:50)
[2017-01-22] MEDS: Senna TAB PO SCH (19:50)
[2017-01-23] MEDS: Morphine ORAL CONCENTRATE* 5 MG/0.25 ML ORAL.SYRIN SL PRN ×3 (01:17→08:20)
[2017-01-23] MEDS: Levothyroxine TAB* 100 MCG TAB PO SCH (05:33)
[2017-01-23] MEDS: Acetaminophen TAB* 325 MG PO PRN (08:21)
[2017-01-23] MEDS: Docusate CAP* 100 MG PO SCH ×2 (08:22→21:48)
[2017-01-23] MEDS: Lisinopril TAB* 5 MG PO SCH (08:24)
[2017-01-23] MEDS: Clopidogrel TAB* 75 MG PO SCH (08:24)
[2017-01-23] MEDS: Aspirin EC Low Dose* 81 MG TAB.EC PO SCH (08:24)
[2017-01-23] MEDS: amLODIPine TAB* 5 MG PO SCH (08:25)
[2017-01-23] MEDS: Metoprolol Succinate XL TAB* 100 MG PO SCH (08:25)
[2017-01-23] MEDS: CMCS: Rosuvastatin (NF) 5 MG TAB PO SCH (08:27)
[2017-01-23] MEDS: Citalopram TAB* 20 MG PO SCH (08:27)
[2017-01-23] MEDS: Sodium Bicarbonate (ANTACID)* 650 MG TAB PO SCH ×2 (08:27→21:46)
[2017-01-23] MEDS: Hyoscyamine TAB* 0.125 MG PO SCH (08:27)
[2017-01-23] MEDS: Folic Acid TAB* 1 MG PO SCH (08:27)
[2017-01-23] MEDS: Hemorrhoidal OINT TOPICAL PRN (08:30)
--- NOTE | 2017-01-23 11:38 | PN ---
Subjective Date of Service: 01/23/17 Interval History: Pt got morphine this AM for pain in her buttock area. Now mildly sedated, but verbal. Had a long conversation with pt's 2 sons who were not able to come to see pt yesterday and are disappointed that pt is not "clear" today. It was explained to pt's family that pt did not have dialysis for 4 days now and uremia can cause significant lethargy and confusion, nevertheless morphine likely contributed to it today. Family requested for pt to be off all sedatives in hopes that they can have a conversation with pt about the choice of no dialysis and comfort care Objective Active Medications: Acetaminophen (Tylenol Tab*) 650 mg PO Q4H PRN PRN Reason: FEVER/PAIN Last Admin: 01/23/17 08:21 Dose: 650 mg Amlodipine Besylate (Norvasc Tab*) 10 mg PO DAILY [facility] PRN Reason: Protocol Last Admin: 01/23/17 08:25 Dose: 10 mg Aspirin (Aspirin Ec Low Dose*) 81 mg PO DAILY [facility] Last Admin: 01/23/17 08:24 Dose: 81 mg Citalopram Hydrobromide (Celexa Tab*) 20 mg PO DAILY [facility] Last Admin: 01/23/17 08:27 Dose: 20 mg Clopidogrel Bisulfate (Plavix Tab*) 75 mg PO DAILY [facility] Last Admin: 01/23/17 08:24 Dose: 75 mg Docusate Sodium (Colace Cap*) 100 mg PO BID [facility] Last Admin: 01/23/17 08:22 Dose: 100 mg Docusate Sodium (Colace Cap*) 100 mg PO BID PRN PRN Reason: CONSTIPATION Folic Acid (Folvite Tab*) 1 mg PO DAILY [facility] Last Admin: 01/23/17 08:27 Dose: 1 mg Hyoscyamine (Anaspaz Tab*) 0.125 mg PO DAILY [facility] Last Admin: 01/23/17 08:27 Dose: 0.125 mg Cefepime HCl 1 gm/ Sodium (Chloride) 50 mls @ 100 mls/hr IVPB Q24H [facility] Stop: 01/24/17 14:00 Last Admin: 01/22/17 18:13 Dose: 100 mls/hr Levothyroxine Sodium (Synthroid Tab*) 100 mcg PO DAILY@0600 [facility] Last Admin: 01/23/17 05:33 Dose: 100 mcg Lisinopril (Prinivil Tab*) 2.5 mg PO DAILY [facility] Last Admin: 01/23/17 08:24 Dose: 2.5 mg Metoprolol Succinate (Toprol Xl Tab*) 100 mg PO DAILY [facility] Last Admin: 01/23/17 08:25 Dose: 100 mg Metoprolol Succinate (Toprol Xl Tab*) 50 mg PO BEDTIME [facility] Last Admin: 01/22/17 19:50 Dose: 50 mg Ondansetron HCl (Zofran Inj*) 4 mg IV Q6H PRN PRN Reason: NAUSEA Last Admin: 01/20/17 12:48 Dose: 4 mg Phenyleph/Shark Oil/Min Oil/Petrol (Preparation H*) 1 applic TOPICAL . NEEDED PRN PRN Reason: RECTAL PAIN Last Admin: 01/23/17 08:30 Dose: 1 applic Ropinirole HCl (Requip Tab*) 0.25 mg PO BEDTIME [facility] Last Admin: 01/22/17 19:50 Dose: 0.25 mg Rosuvastatin Calcium (Crestor (Nf)) 5 mg PO DAILY [facility] PRN Reason: Protocol Last Admin: 01/23/17 08:27 Dose: 5 mg Senna (Senokot Tab*) 2 tab PO BEDTIME [facility] Last Admin: 01/22/17 19:50 Dose: 2 tab Senna (Senokot Tab*) 1 tab PO BEDTIME PRN PRN Reason: CONSTIPATION Sodium Bicarbonate (Sodium Bicarbonate (Antacid)*) 650 mg PO BID [facility] Last Admin: 01/23/17 08:27 Dose: 650 mg Warfarin Sodium (Coumadin Tab(*)) 2 mg PO DAILY@1700 [facility] PRN Reason: Protocol Last Admin: 01/22/17 16:04 Dose: 2 mg Vital Signs 01/22/17 01/22/17 01/22/17 12:06 14:06 14:57 Temperature Pulse Rate Respiratory 16 16 Rate Blood Pressure (mmHg) O2 Sat by Pulse 98 Oximetry 01/22/17 01/22/17 01/22/17 15:15 16:00 16:03 Temperature 98.1 F Pulse Rate 58 Respiratory 14 16 Rate Blood Pressure 110/44 (mmHg) O2 Sat by Pulse 100 100 Oximetry 01/22/17 01/22/17 01/22/17 18:07 19:17 20:00 Temperature 98.4 F Pulse Rate 60 Respiratory 18 24 20 Rate Blood Pressure 114/39 (mmHg) O2 Sat by Pulse 95 Oximetry 01/22/17 01/23/17 01/23/17 20:07 00:00 00:34 Temperature 98.2 F Pulse Rate 62 Respiratory 21 20 Rate Blood Pressure 133/46 (mmHg) O2 Sat by Pulse 99 99 Oximetry 01/23/17 01/23/17 01/23/17 00:35 01:17 03:17 Temperature 98.2 F Pulse Rate 62 Respiratory 20 21 20 Rate Blood Pressure 133/46 (mmHg) O2 Sat by Pulse 99 Oximetry 01/23/17 01/23/17 01/23/17 06:02 07:15 07:26 Temperature 98.2 F Pulse Rate 59 Respiratory 21 16 16 Rate Blood Pressure 127/40 (mmHg) O2 Sat by Pulse 98 98 Oximetry 01/23/17 01/23/17 01/23/17 08:02 08:17 08:20 Temperature Pulse Rate Respiratory 16 16 Rate Blood Pressure (mmHg) O2 Sat by Pulse 95 Oximetry 01/23/17 01/23/17 01/23/17 08:27 10:20 10:26 Temperature Pulse Rate Respiratory 16 20 20 Rate Blood Pressure (mmHg) O2 Sat by Pulse Oximetry Oxygen Devices in Use Now: High Flow Nasal Cannula - at 4L Appearance: 86 yo F, lying in bed in NAD, AAOx2 Eyes: No Scleral Icterus, PERRLA Ears/Nose/Mouth/Throat: NL Teeth, Lips, Gums, Mucous Membranes Moist Neck: NL Appearance and Movements; NL JVP, Trachea Midline Respiratory: Symmetrical Chest Expansion and Respiratory Effort, - - crackles at b/l bases Cardiovascular: RRR, - - 3/ 6 HARRIET Abdominal: NL Sounds; No Tenderness; No Distention, No Hepatosplenomegaly Extremities: No Edema, No Clubbing, Cyanosis Skin: No Rash or Ulcers, No Nodules or Sclerosis Neurological: NL Muscle Strength and Tone, - - lethargic Result Diagrams: 01/22/17 05:46 01/22/17 05:46 Microbiology and Other Data: Microbiology 01/17/17 01:00 Influenza Types A,B Antigen (HEIDI) - Final Nasal Specimen received for Influenza A/B Molecular testing Assess/Plan/Problems-Billing Assessment: 86 yo F on HD due to ESRD, with recurrent HCAP - Patient Problems (1) HCAP (healthcare-associated pneumonia) Comment: No clear evidence of infection this hospital stay, cannot r/o HCAP. Stopped vanco 01/19, plan to stop cefepime 01/24 (7 days tx). CXR 01/20 still shows marked interstitial edema and pleural effusions. Still requiring several liters of supp O2, which appears to be mostly likely due to pleural effusions rather than persistent infiltrate Pt decided to elect no dilaysis and comfort care on 01/22/17, today two of her 4 sons arrived and wish for the pt to reiterate her wishes once again in their presence. Unfortunately now she is 4 days off dialysis and becoming more lethargic. will stop morphine and allow pt to be able to interact with family. (2) ESRD (end stage renal disease) Comment: On HD, dialyzed 01/19 in ICU. Discussed with Dr. Johnson 01/22--pt wishes to discontinue dialysis (3) Aortic stenosis Comment: With acute on chronic systolic CHF. (4) End of life care Comment: Palliative care consult appreciated. Pt wishes to be DNR and stop dialysis. (5) Leukocytosis Comment: persists, cont antibiotics for now (6) Anemia of renal disease Comment: Hb back up to 8.8 (7) Hypothyroidism Comment: TSH 7.23 01/21/17. Levothyroxine increased to 100 mcg 01/22/17. (8) DVT prophylaxis Comment: SQ heparin Status and Disposition: inpatient Pt decided to be comfort care and d/c dialysis on 01/22/17. Family want to have the opportunity for the pt to tell them her decision today. Unfortunately she is becoming more lethargic.
[2017-01-23] MEDS: Morphine ORAL CONCENTRATE* 5 MG/0.25 ML ORAL.SYRIN PO PRN ×2 (15:48→22:04)
[2017-01-23] MEDS: Warfarin TAB(*) 2 MG PO SCH (17:17)
[2017-01-23] MEDS: Cefepime(*) 1 GM in NS 0.9% 50 ML* 50 ML IVPB SCH (18:42)
[2017-01-23] MEDS: Metoprolol Succinate XL TAB* 50 MG PO SCH (21:46)
[2017-01-23] MEDS: Ropinirole TAB* 0.5 MG TAB PO SCH (21:47)
[2017-01-23] MEDS: Senna TAB PO SCH (21:47)
[2017-01-24] MEDS: Morphine ORAL CONCENTRATE* 5 MG/0.25 ML ORAL.SYRIN PO PRN ×4 (00:19→21:53)
[2017-01-24] MEDS: Acetaminophen TAB* 325 MG PO PRN ×2 (01:14→08:24)
[2017-01-24 05:26] LABS: BUN/Creatinine Ratio 11.9 (8-20); Calcium 8.5 mg/dL (8.6-10.3); EGFR African American 9.7 (>60); EGFR Non-African American 7.5 (>60)
[2017-01-24 05:34] LABS: Hematocrit 29 % (35-47); Mean Corpuscular HGB Conc 31 g/dl (31-36); Mean Corpuscular Hemoglobin 31 pg (27-31); Mean Corpuscular Volume 98 fL (80-97); Mean Platelet Volume 8 um3 (7.4-10.4); Red Blood Count 2.96 10^6/ul (4.0-5.4); Red Cell Distribution Width 17 % (10.5-15); White Blood Count 15.7 10^3/ul (3.5-10.8)
[2017-01-24] MEDS: Levothyroxine TAB* 100 MCG TAB PO SCH (06:04)
[2017-01-24] MEDS ORDERED: Sodium Polystyrene ORAL.SOL* 15 GM/60 ML BTL PO ONE (07:34)
[2017-01-24] MEDS: Docusate CAP* 100 MG PO SCH ×2 (08:24→21:27)
[2017-01-24] MEDS: amLODIPine TAB* 5 MG PO SCH (08:24)
[2017-01-24] MEDS: Clopidogrel TAB* 75 MG PO SCH (08:24)
[2017-01-24] MEDS: Sodium Bicarbonate (ANTACID)* 650 MG TAB PO SCH ×2 (08:24→21:14)
[2017-01-24] MEDS: Citalopram TAB* 20 MG PO SCH (08:24)
[2017-01-24] MEDS: Aspirin EC Low Dose* 81 MG TAB.EC PO SCH (08:24)
[2017-01-24] MEDS: Metoprolol Succinate XL TAB* 100 MG PO SCH (08:24)
[2017-01-24] MEDS: Hyoscyamine TAB* 0.125 MG PO SCH (08:24)
[2017-01-24] MEDS: CMCS: Rosuvastatin (NF) 5 MG TAB PO SCH (08:24)
[2017-01-24] MEDS: Folic Acid TAB* 1 MG PO SCH (08:25)
[2017-01-24] MEDS: Lisinopril TAB* 5 MG PO SCH (08:25)
--- NOTE | 2017-01-24 11:44 | PN ---
Subjective Date of Service: 01/24/17 Interval History: Pt is lethargic, awakes to voice, but with difficulty. Knows that she is in hospital. Denies pain. Stated "I'm such a mess". Objective Active Medications: Acetaminophen (Tylenol Tab*) 650 mg PO Q4H PRN PRN Reason: FEVER/PAIN Last Admin: 01/24/17 08:24 Dose: 650 mg Amlodipine Besylate (Norvasc Tab*) 10 mg PO DAILY [facility] PRN Reason: Protocol Last Admin: 01/24/17 08:24 Dose: 10 mg Aspirin (Aspirin Ec Low Dose*) 81 mg PO DAILY [facility] Last Admin: 01/24/17 08:24 Dose: 81 mg Citalopram Hydrobromide (Celexa Tab*) 20 mg PO DAILY [facility] Last Admin: 01/24/17 08:24 Dose: 20 mg Clopidogrel Bisulfate (Plavix Tab*) 75 mg PO DAILY [facility] Last Admin: 01/24/17 08:24 Dose: 75 mg Docusate Sodium (Colace Cap*) 100 mg PO BID [facility] Last Admin: 01/24/17 08:24 Dose: 100 mg Docusate Sodium (Colace Cap*) 100 mg PO BID PRN PRN Reason: CONSTIPATION Last Admin: 01/23/17 21:45 Dose: 100 mg Folic Acid (Folvite Tab*) 1 mg PO DAILY [facility] Last Admin: 01/24/17 08:25 Dose: 1 mg Hyoscyamine (Anaspaz Tab*) 0.125 mg PO DAILY [facility] Last Admin: 01/24/17 08:24 Dose: 0.125 mg Cefepime HCl 1 gm/ Sodium (Chloride) 50 mls @ 100 mls/hr IVPB Q24H [facility] Stop: 01/24/17 14:00 Last Admin: 01/23/17 18:42 Dose: 100 mls/hr Levothyroxine Sodium (Synthroid Tab*) 100 mcg PO DAILY@0600 [facility] Last Admin: 01/24/17 06:04 Dose: 100 mcg Lisinopril (Prinivil Tab*) 2.5 mg PO DAILY [facility] Last Admin: 01/24/17 08:25 Dose: 2.5 mg Metoprolol Succinate (Toprol Xl Tab*) 100 mg PO DAILY [facility] Last Admin: 01/24/17 08:24 Dose: 100 mg Metoprolol Succinate (Toprol Xl Tab*) 50 mg PO BEDTIME [facility] Last Admin: 01/23/17 21:46 Dose: 50 mg Morphine Sulfate (Morphine Oral Concentrate*) 5 mg PO Q2H PRN PRN Reason: PAIN Last Admin: 01/24/17 08:23 Dose: 5 mg Ondansetron HCl (Zofran Inj*) 4 mg IV Q6H PRN PRN Reason: NAUSEA Last Admin: 01/20/17 12:48 Dose: 4 mg Phenyleph/Shark Oil/Min Oil/Petrol (Preparation H*) 1 applic TOPICAL . NEEDED PRN PRN Reason: RECTAL PAIN Last Admin: 01/23/17 08:30 Dose: 1 applic Ropinirole HCl (Requip Tab*) 0.25 mg PO BEDTIME [facility] Last Admin: 01/23/17 21:47 Dose: 0.25 mg Rosuvastatin Calcium (Crestor (Nf)) 5 mg PO DAILY [facility] PRN Reason: Protocol Last Admin: 01/24/17 08:24 Dose: 5 mg Senna (Senokot Tab*) 2 tab PO BEDTIME [facility] Last Admin: 01/23/17 21:47 Dose: Not Given Senna (Senokot Tab*) 1 tab PO BEDTIME PRN PRN Reason: CONSTIPATION Sodium Bicarbonate (Sodium Bicarbonate (Antacid)*) 650 mg PO BID [facility] Last Admin: 01/24/17 08:24 Dose: 650 mg Warfarin Sodium (Coumadin Tab(*)) 2 mg PO DAILY@1700 [facility] PRN Reason: Protocol Last Admin: 01/23/17 17:17 Dose: 2 mg Vital Signs 01/23/17 01/23/17 01/23/17 15:48 16:09 17:48 Temperature 98.2 F Pulse Rate 55 Respiratory 14 20 15 Rate Blood Pressure 113/44 (mmHg) O2 Sat by Pulse 100 Oximetry 01/23/17 01/23/17 01/23/17 20:00 22:04 23:27 Temperature 97.6 F Pulse Rate 56 Respiratory 16 16 16 Rate Blood Pressure 119/41 (mmHg) O2 Sat by Pulse 97 Oximetry 01/24/17 01/24/17 01/24/17 00:00 00:04 00:19 Temperature Pulse Rate Respiratory 16 18 Rate Blood Pressure (mmHg) O2 Sat by Pulse 97 Oximetry 01/24/17 01/24/17 01/24/17 02:19 03:28 04:30 Temperature Pulse Rate Respiratory 16 16 Rate Blood Pressure (mmHg) O2 Sat by Pulse 97 Oximetry 01/24/17 01/24/17 01/24/17 04:32 06:30 07:29 Temperature 97.7 F Pulse Rate 56 Respiratory 16 16 16 Rate Blood Pressure 124/51 (mmHg) O2 Sat by Pulse 97 Oximetry 01/24/17 01/24/17 01/24/17 07:31 08:23 08:24 Temperature 97.4 F Pulse Rate 57 Respiratory 16 16 16 Rate Blood Pressure 127/40 (mmHg) O2 Sat by Pulse 97 Oximetry 01/24/17 01/24/17 10:23 10:24 Temperature Pulse Rate Respiratory 12 12 Rate Blood Pressure (mmHg) O2 Sat by Pulse Oximetry Oxygen Devices in Use Now: Nasal Cannula - at 4L Appearance: 86 yo f in NAD, lethargic, AAOx2 Eyes: No Scleral Icterus, PERRLA Ears/Nose/Mouth/Throat: - - dry mucosa Neck: NL Appearance and Movements; NL JVP, Trachea Midline Respiratory: Symmetrical Chest Expansion and Respiratory Effort, - - crackles at bases Cardiovascular: RRR, - - 3/6 HARRIET Abdominal: NL Sounds; No Tenderness; No Distention, No Hepatosplenomegaly Lymphatic: No Cervical Adenopathy Extremities: No Edema, No Clubbing, Cyanosis Skin: No Nodules or Sclerosis Neurological: - - generalized weakness Result Diagrams: 01/24/17 04:56 01/24/17 04:56 Microbiology and Other Data: Microbiology 01/17/17 01:00 Influenza Types A,B Antigen (HEIDI) - Final Nasal Specimen received for Influenza A/B Molecular testing Assess/Plan/Problems-Billing Assessment: 86 yo F on HD due to ESRD, with recurrent HCAP - Patient Problems (1) HCAP (healthcare-associated pneumonia) Comment: No clear evidence of infection this hospital stay, cannot r/o HCAP. Stopped vanco 01/19, plan to stop cefepime 01/24 (7 days tx). CXR 01/20 still shows marked interstitial edema and pleural effusions. Still requiring several liters of supp O2, which appears to be mostly likely due to pleural effusions rather than persistent infiltrate Pt decided to elect no dilaysis and comfort care on 01/22/17. On 01/23/17 Pt's sons: Darrius and Yaya requested one more dialysis before going home on hospice. Pt is planned for HD today. (2) ESRD (end stage renal disease) Comment: One more dialysis before hospice at home today (3) Aortic stenosis Comment: With acute on chronic systolic CHF. (4) End of life care Comment: Palliative care consult appreciated. Pt is DNR, plan for hospice at home (5) Leukocytosis Comment: persists, antibiotics stopped today (6) Anemia of renal disease Comment: Hb back up to 9 (7) Hypothyroidism Comment: TSH 7.23 01/21/17. Levothyroxine increased to 100 mcg 01/22/17. (8) Hyperkalemia Comment: tx with one dose of Kayexalate will have dialysis today (9) PAF (paroxysmal atrial fibrillation) Comment: Chun had PAF intermittently during her hospital stay. Warfarin started on 01/19/17. INR today at 1.6, likely will stop once on hospice (10) DVT prophylaxis Comment: SQ heparin Status and Disposition: inpatient Pt decided to be comfort care and d/c dialysis on 01/22/17. Family want the pt to have one more dialysis today prior to going home with hospice
[2017-01-24] MEDS ORDERED: Epoetin Alfa* 10,000 UNITS/ML VIAL IV ONE (13:30)
--- NOTE | 2017-01-24 14:09 | PN ---
Progress Note - Progress Note Date of Service: 01/24/17 Note: Follow up palliative care note There has been some confusion regarding continuing dialysis. Patient now appears confused. When asked if she wants to continue dialysis she says yes. Then she states she is ready to . I point out that that would mean stopping dialysis and her reply is ok. She denies any pain or SOB at this time. The sons, and primary proxy, Darrius has intentions of taking patient home with hospice. Unfortunately myself and Dr. Power have not been able to get ahold of him. We did get a hold of the other brother, Yaya. We expressed our concern regarding despite her limited life expectation after discontinuing dialysis would be less than 2 weeks, she still requires 24 hr/care. Ry is concerned that Darrius will not be able to do 24 hr care as he is till working. Awaiting to see if the hospice residence will offer the patient a bed and if Darrius would be interested in this as an option for the patient. Awaiting to hear back from Darrius and hospalice [facility] residence at this time.
[2017-01-24] MEDS: Warfarin TAB(*) 2 MG PO SCH (17:32)
[2017-01-24] MEDS: Metoprolol Succinate XL TAB* 50 MG PO SCH (21:27)
[2017-01-24] MEDS: Ropinirole TAB* 0.5 MG TAB PO SCH (21:27)
[2017-01-24] MEDS: Senna TAB PO SCH (21:28)
[2017-01-24] MEDS: Hemorrhoidal OINT TOPICAL PRN (22:12)
[2017-01-25] MEDS: Levothyroxine TAB* 100 MCG TAB PO SCH (05:51)
[2017-01-25 07:30] VITALS: BP 122/38
[2017-01-25] MEDS: Aspirin EC Low Dose* 81 MG TAB.EC PO SCH (08:43)
[2017-01-25] MEDS: amLODIPine TAB* 5 MG PO SCH (08:45)
[2017-01-25] MEDS: Citalopram TAB* 20 MG PO SCH (08:47)
[2017-01-25] MEDS: Clopidogrel TAB* 75 MG PO SCH (08:48)
[2017-01-25] MEDS: Docusate CAP* 100 MG PO SCH (08:49)
[2017-01-25] MEDS: Folic Acid TAB* 1 MG PO SCH (08:49)
[2017-01-25] MEDS: Hyoscyamine TAB* 0.125 MG PO SCH (08:50)
[2017-01-25] MEDS: Metoprolol Succinate XL TAB* 100 MG PO SCH (08:51)
[2017-01-25] MEDS: Sodium Bicarbonate (ANTACID)* 650 MG TAB PO SCH (08:52)
[2017-01-25] MEDS: CMCS: Rosuvastatin (NF) 5 MG TAB PO SCH (08:52)
[2017-01-25] MEDS: Morphine ORAL CONCENTRATE* 5 MG/0.25 ML ORAL.SYRIN PO PRN (09:09)
[2017-01-25] MEDS ORDERED: Morphine ORAL CONCENTRATE* 5 MG/0.25 ML ORAL.SYRIN PO PRN (11:14)
[2017-01-25] MEDS ORDERED: Linezolid TAB* 600 MG PO SCH (12:30)
--- NOTE | 2017-01-25 14:19 | DS ---
CC: Dr. Christa Roberts, [facility]; Dr. Lim * DISCHARGE SUMMARY: DATE OF ADMISSION: 01/17/17 DATE OF DISCHARGE: 01/25/17 DISCHARGE DIAGNOSES: 1. Acute respiratory failure and bilateral pleural effusion. The patient was treated for healthcare-associated pneumonia throughout her hospital stay. The patient was treated with vancomycin and cefepime. She finished 7-day treatment on 01/24/17. 2. 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 3. Paroxysmal atrial fibrillation. The patient was started on Coumadin during her hospital stay. SECONDARY DIAGNOSES: 1. End-stage renal disease, on dialysis. The patient decided not to be dialyzed anymore. 2. Coronary artery disease. 3. Hypothyroidism. 4. Restless legs syndrome. 5. Hyperlipidemia. 6. Congestive heart failure with last ejection fraction of 35% to 40%. 7. History of aortic stenosis. Please note that the patient was noted to have bilateral pleural effusions during the hospital stay. The patient had worsening of her anemia of renal disease during her hospital stay and persistent leukocytosis. The patient is going to [facility] with intention of being placed on comfort care and hospice. The patient was not interested in any further dialysis and her family is in the process of discussing which medications will and which will not be continued throughout her further stay. LABORATORY DATA AND STUDIES PERFORMED DURING THE HOSPITAL STAY: Include: On , white blood cell count 15.7, hemoglobin 9.0, hematocrit of 29, and platelets of 338. potassium of 6.0, chloride 89, carbon dioxide 28, BUN 64, creatinine 5.37, that was prior to the patient's dialysis, that was on 01/24/17. The patient's TSH was 7.23 and her Synthroid dose was adjusted during the hospital stay. The patient's troponins throughout her hospital stay were mildly elevated at 0.07, most likely due to end-stage renal disease. Brain natriuretic peptide obtained on 01/22/17 was 41. Influenza tests were negative on admission. Most recent chest x-ray obtained on 01/20/17, impression: "Cardiomegaly with pulmonary interstitial edema. Large bilateral pleural effusions, bibasilar atelectasis versus consolidation." CONSULTATIONS DURING THE HOSPITAL STAY: Included: Dr. Lim from Palliative and Hospice Medicine. HOSPITALIZATION COURSE: Betsy Matias is an 86-year-old female, who was hospitalized at our facility on 01/15/17 for healthcare-associated pneumonia and non-ST elevation LA. She was transferred to [facility] for a swing bed. She was there for 2 days and then she came back to our facility with hypoxemia again. Initially, she was hospitalized with an intention of treating hospital- acquired pneumonia again with vancomycin and cefepime. Despite treatment with antibiotics, she continued to have respiratory failure requiring 4 to 5 L of oxygen. Due to the patient's overall status, Palliative Care Consult was requested and on 01/22/17, the patient requested to be taken off dialysis and be placed on comfort care. Nevertheless, the patient's family was not available for the next several hours and the patient's dialysis was stopped according to her wishes. She was competent to make the decision at that point. The very next day when patient's 2 sons arrived, the patient was very mildly confused, possibly due to uremia. The patient's sons requested for the patient to have dialysis so the patient is clear and she is able to decide and talk with them about her choices. The patient did have a dialysis on Sunday, on 01/24/17. Despite that, she remained confused. Throughout extensive conversations with the patient's both sons, Darrius and Yaya, it was decided that the patient most likely needs to be placed on comfort care and placed in either longterm or hospice care residence. Hospice care residence was offered to the patient in [place], but the patient's family declined it and chose for the patient to go to [facility] with hospice services. Unfortunately , by the end of the patient's hospital stay, it was very difficult to manage the patient's case due to the patient's primary managed care nurse, Darrius, her son being rarely available and unfortunately was not able to fully discuss the patient's medication choices at discharge. Please also note that on 01/24/17, the patient's urine cultures grew VRE. The patient also was noted to retain urine and she has a very scant urine output and a Parkinson catheter was placed at the time of discharge. At this point Linezolid was the only option for PO antibiotic treatment, but with pt refusing dialysis she would not be able to metabolize the medication and could suffer from serious side effects. Weighing the risk versus the benefit of treatment with linezolid it was decided that it is safer for the pt not to be treated with it at discharge.I suspect that the patient's urine is most likely colonized and that relief of obstruction by the time of discharge may actually treat the underlying problem. MEDICATIONS AT DISCHARGE: 1. Aspirin 81 mg daily. 2. Plavix 75 mg daily. 3. Colace 100 mg b.i.d. 4. Lexapro 10 mg daily. 5. Folvite 1 mg daily. 6. Hemorrhoidal ointment 1 application daily p.r.n. 7. Hyoscyamine 0.125 mg daily. 8. Synthroid 100 mcg daily. 9. Metoprolol succinate 100 mg daily in the morning and 50 at bedtime. 10. Morphine oral concentrate 5 mg/0.25 mL every 4 hours p.r.n. pain or discomfort. 11. Requip 0.25 mg at bedtime. 12. Crestor 5 mg daily. 13. Senokot 1 tablet at bedtime and 2 tablets at bedtime p.r.n. 14. Antacid 650 mg b.i.d. 15. Coumadin 2 mg daily. 16. Norvasc 10 mg daily. DISCHARGE INSTRUCTIONS: The patient's next INR is, if the Coumadin was chosen to be continued, to be obtained in 1 to 2 days after discharge. At discharge, the patient is recommended to be seen by hospice services from [place] to follow up on comfort care orders. At discharge, the patient is on 4 L of oxygen nasal cannula continuously. PHYSICAL EXAMINATION AT DISCHARGE: Blood pressure of 132/38, heart rate of 44 and regular, respiratory rate 16, oxygen saturation 94% on 4 L of oxygen nasal cannula, temperature 97.4. General: The patient is a pleasant 86-year-old female, who is in no acute distress. The patient is confused. She talks about how she cannot walk and she would like to go and walk with the walker. She knows that she is in the hospital. She is not able to carry on a regular conversation. HEENT: Head atraumatic, normocephalic. Eyes: Pupils equal and reactive to light and accommodation. Oropharynx clear. Mucosa moist. Neck: Supple. No JVD. No bruits bilaterally. Cardiovascular: Regular rhythm. Positive for 3/6 systolic ejection murmur radiating to bilateral carotids. Respiratory: Crackles at bilateral mid lungs and decreased breath sounds in bilateral bases. Abdomen: Soft, nontender. Bowel sounds are present in all 4 quadrants. Extremities: There is no edema. Pulses +2 bilaterally. No clubbing or cyanosis. Neuro Evaluation: Speech clear. Cranial nerves II through XII are grossly intact. Motor strength is 5/5 bilaterally. Notable for generalized weakness. On skin evaluation, the patient has stage I to II mild decubitus in the area of her sacrum. No open areas were noted. Please note that at discharge, the patient is not to be continued on dialysis and most likely comfort care was anticipated. within the next 2 weeks as per our palliative rn critical care. Nevertheless, the family is still undecided about the treatment and the medications at discharge and that is why most of them were continued. The patient is to be signed on with hospice within the next 24 hours. Please note that this is a short summary of the patient's long and complicated hospitalization. Please refer to further medical records for details. TIME SPENT: Approximately 45 minutes was spent on the patient's discharge. [id number]/[facility] #: [id number] [facility]
== END 2017-01-25 13:45 | DRG 280 ==
LOC: MED 15:56 → ICU 19:07 → MEDTELE 01-19 11:57
PROVIDERS: ADMIT Internal Medicine; ATTEND Internal Medicine
PROC: 5A1D70Z Performance of Urinary Filtration, Intermittent, Less than 6 Hours Per Day (ICD-10-PCS; principal; 2017-01-18)
PROC: 5A1D70Z Performance of Urinary Filtration, Intermittent, Less than 6 Hours Per Day (ICD-10-PCS; 2017-01-19)
PROC: 5A1D70Z Performance of Urinary Filtration, Intermittent, Less than 6 Hours Per Day (ICD-10-PCS; 2017-01-24)
DX: I13.2 Hypertensive heart and chronic kidney disease with heart failure and with stage 5 chronic kidney disease, or end stage renal disease (principal); J96.01 Acute respiratory failure with hypoxia; I21.4 Non-ST elevation (NSTEMI) myocardial infarction; J18.9 Pneumonia, unspecified organism; L89.151 Pressure ulcer of sacral region, stage 1; L89.152 Pressure ulcer of sacral region, stage 2; I48.0 Paroxysmal atrial fibrillation; E87.5 Hyperkalemia; I27.20 Pulmonary hypertension, unspecified; N18.6 End stage renal disease; I50.23 Acute on chronic systolic (congestive) heart failure; N39.0 Urinary tract infection, site not specified; D63.1 Anemia in chronic kidney disease; I35.0 Nonrheumatic aortic (valve) stenosis; G25.81 Restless legs syndrome; E03.9 Hypothyroidism, unspecified; E78.5 Hyperlipidemia, unspecified; Z96.642 Presence of left artificial hip joint; R33.9 Retention of urine, unspecified; Z16.21 Resistance to vancomycin; I08.3 Combined rheumatic disorders of mitral, aortic and tricuspid valves; B95.2 Enterococcus as the cause of diseases classified elsewhere; Z51.5 Encounter for palliative care; I25.10 Atherosclerotic heart disease of native coronary artery without angina pectoris; Z88.8 Allergy status to other drugs, medicaments and biological substances; Z91.041 Radiographic dye allergy status; Z90.49 Acquired absence of other specified parts of digestive tract; Z90.710 Acquired absence of both cervix and uterus; Z82.3 Family history of stroke; Z79.82 Long term (current) use of aspirin; Z79.02 Long term (current) use of antithrombotics/antiplatelets; Z79.01 Long term (current) use of anticoagulants
CPT/HCPCS: 36415; 36600; 71010; 71020; 80048; 80053; 80202; 81003; 81015; 82803; 83605; 83735; 83880; 84100; 84145; 84439; 84443; 84481; 84484; 84520; 85025; 85610; 85730; 86140; 87040; 87077; 87086; 87186; 87502; 87899; 90935; 93005; 94640; 94760; A9270-GY; G0257; J0692; J0885; J1644; J2405; J3370